=== PATIENT | male | born 1945 | race Caucasian/White ===

== ENCOUNTER → 2021-01-23 09:01 | Outpatient (BNVA) | payer BC, SELFPAY | PROVIDERS: Visit Provider Orthopaedic Surgery ==

== ENCOUNTER 2022-02-10 09:54 | Inpatient (IN) | payer MEDICARE, SELFPAY ==
[2022-01-26 12:19] VITALS: BP 127/72; PULSE 77; RESP 20; O2SAT 97; BMI 28.0
[2022-01-26 15:27] LABS: MRSA Nasal PCR NEGATIVE (Negative); SA Nasal PCR NEGATIVE (Negative)
--- NOTE | 2022-02-09 09:38 | P.CONAN_ITS ---
Documented by User: Jeri Kramer NP 02/09/22 09:42 HPI - Anesthesia Eval Consult details Narrative: 76yo M for Left Hip Total Replacement PCP cleared *Hx tonsilar CA s/p radiation 2017* PMFSH Active Problems Active Problems: All Active Problems (Updated 01/26/22 @ 12:19 by Jeanette Apodaca, RN) Primary osteoarthritis of left hip (Acute) Past Medical History Medical History (Updated 01/26/22 @ 12:19 by Jeanette Apodaca, RN) Arthritis Balance problem Heart burn Prostate cancer Tonsil cancer Surgical History Surgical History (Updated 01/26/22 @ 12:04 by Jeanette Apodaca, AKIKO) H/O vasectomy History of appendectomy History of bilateral cataract extraction History of hernia repair History of tonsillectomy History of tooth extraction Social History Social History (Updated 01/23/21 @ 09:12 by FERNY Napoles) Household Members: None Housing: Apartment Are you a primary managed care liaison to a significant other at home: No Do you presently have visiting nurse or other home services: No Alcohol intake: current Alcohol intake frequency: a few times a week Alcohol type: beer and wine Patient Tobacco Use Status: Former Tobacco user Quit Date: 04/2021 Tobacco use type: Cigarette Cigarettes Per Day: 4 Smoked in Last 30 Days: No Second Hand Smoke Exposure: Yes (Visiting son) Use of substances other than those prescribed or required for medical reasons: No Have you been hit, kicked, punched, or otherwise hurt by someone within the past year? If so, by whom?: No Do you feel safe in your current relationship?: No Current Relationship Is there a partner from a previous relationship who is making you feel unsafe now?: No Are you made to feel afraid or neglected: No Are you DNR?: Yes Advance Directives: No Advance Directives Information Provided: Yes (To bring in DOS) Advance Directives on File: No Do you have thoughts of harming others: None Do you have a plan to hurt others: No Plan Recently lost weight without trying: No How much weight loss: 14-23 pounds Eating poorly because of decreased appetite: No Nutrition screen score: 2 Nutrition Risks: No Nutritional Risk Poor oral hygiene: No Current occupational status: retired Current occupation: rt handed Meds Allergies Allergy/AdvReac Type Severity Reaction Status Date / Time Seasonal Allergies Allergy unknown Verified 01/29/22 13:54 Home Medications Medication Instructions Recorded Confirmed Last Taken Type simvastatin 40 mg tablet 40 mg PO DAILY 01/23/21 01/26/22 Unknown History tamsulosin 0.4 mg capsule 0.8 mg PO DAILY 01/23/21 01/26/22 Unknown History trazodone 50 mg tablet 50 mg PO BEDTIME 01/23/21 01/26/22 Unknown History bupropion HCl 150 mg tablet,12 hr 1 tab PO BID 01/26/22 01/26/22 Unknown History sustained-release famotidine 20 mg tablet 20 mg PO DAILY PRN Heartburn 01/26/22 01/26/22 Unknown History ibuprofen 400 mg tablet 400 mg PO BID 01/26/22 01/26/22 Unknown History multivitamin 1 tab PO DAILY 01/26/22 01/26/22 Unknown History Exam Exam Date and Time: February 09, 2022 0938 Height,Weight and Vital Signs: Height 5 ft 9 in Weight 86.183 kg Last Vital Signs Pulse 77 01/26/22 12:19 Resp 20 01/26/22 12:19 BP 127/72 01/26/22 12:19 Pulse Ox 97 01/26/22 12:19 O2 Del Method 01/26/22 12:19 Pertinent Lab Results Pertinent Lab Results: Laboratory Tests 01/26/22 01/26/22 13:20 Unknown Nasal Screen MRSA (PCR) NEGATIVE Nasal S. aureus Screen NEGATIVE Nasal MRSA/S.aureus Interp SEE NOTE Blood Type O Positive Antibody Screen NEGATIVE BMP and CBC at outside facility WNL 01/26/22 Narrative Narrative: EKG 12/2021 NSR @ 69 Assessment and Plan Assessment Anesthesia Assessment: Chart Reviewed Documented by User: Emanuel Mccullough MD 02/10/22 18:16 HPI - Anesthesia Eval Consult details Narrative: 76yo M for Left Hip Total Replacement PCP cleared *Hx tonsilar CA s/p chemo and radiation 2016* [facility] Past Medical History Medical History (Updated 01/26/22 @ 12:19 by Jeanette Apodaca RN) Arthritis Balance problem Heart burn Prostate cancer Tonsil cancer Family History Family history of problems with anesthesia: No Surgical History Surgical History (Updated 01/26/22 @ 12:04 by Jeanette Apodaca RN) H/O vasectomy History of appendectomy History of bilateral cataract extraction History of hernia repair History of tonsillectomy History of tooth extraction History of Problems with Anesthesia: No Social History Social History (Updated 01/23/21 @ 09:12 by FERNY Napoles) Household Members: None Housing: Apartment Are you a primary managed care liaison to a significant other at home: No Do you presently have visiting nurse or other home services: No Alcohol intake: current Alcohol intake frequency: a few times a week Alcohol type: beer and wine Patient Tobacco Use Status: Former Tobacco user Quit Date: 04/2021 Tobacco use type: Cigarette Cigarettes Per Day: 4 Smoked in Last 30 Days: No Second Hand Smoke Exposure: Yes (Visiting son) Use of substances other than those prescribed or required for medical reasons: No Have you been hit, kicked, punched, or otherwise hurt by someone within the past year? If so, by whom?: No Do you feel safe in your current relationship?: No Current Relationship Is there a partner from a previous relationship who is making you feel unsafe now?: No Are you made to feel afraid or neglected: No Are you DNR?: Yes Advance Directives: No Advance Directives Information Provided: Yes (To bring in DOS) Advance Directives on File: No Do you have thoughts of harming others: None Do you have a plan to hurt others: No Plan Recently lost weight without trying: No How much weight loss: 14-23 pounds Eating poorly because of decreased appetite: No Nutrition screen score: 2 Nutrition Risks: No Nutritional Risk Poor oral hygiene: No Current occupational status: retired Current occupation: rt handed Meds Allergies Allergy/AdvReac Type Severity Reaction Status Date / Time Seasonal Allergies Allergy unknown Verified 01/29/22 13:54 Home Medications Medication Instructions Recorded Confirmed Last Taken Type simvastatin 40 mg tablet 40 mg PO DAILY 01/23/21 01/26/22 Unknown History tamsulosin 0.4 mg capsule 0.8 mg PO DAILY 01/23/21 01/26/22 Unknown History trazodone 50 mg tablet 50 mg PO BEDTIME 01/23/21 01/26/22 Unknown History bupropion HCl 150 mg tablet,12 hr 1 tab PO BID 01/26/22 01/26/22 Unknown History sustained-release famotidine 20 mg tablet 20 mg PO DAILY PRN Heartburn 01/26/22 01/26/22 Unknown History ibuprofen 400 mg tablet 400 mg PO BID 01/26/22 01/26/22 Unknown History multivitamin 1 tab PO DAILY 01/26/22 01/26/22 Unknown History Exam Airway Mallampati Class: III TM Dist: >3cm Neck ROM: Full Loose/Missing/Broken Teeth: Yes (Chipped teeth ) Heart: S1,S2 Lungs: b/l breath sounds Assessment and Plan Assessment Anesthesia Assessment: Anesthesia Plan Discussed Final Anesthetic Review Family History of Problems with Anesthesia: No History of Problems with Anesthesia: No NPO: Yes ASA Class: II Final Preanesthetic Review: Meds/Allgs Chart Reviewed, Consent Obtained/Reviewed and Anes Risks/Benef Reviewed Patient Risk: Intermediate Procedure Risk: Intermediate Anesthetic Plan Anesthetic Plan: GA Disposition: Inp. Admit - Standard Bed
[2022-02-10] VITALS (11 sets, daily range): BP systolic 91–146; BP diastolic 54–94; PULSE 68–84; RESP 15–17; TEMP 36.6–37.2; O2SAT 97–100
--- NOTE | ~2022-02-10 | XR_ITS ---
EXAMINATION: XR PELVIS CLINICAL INFORMATION: Post left hip replacement COMPARISON: Previous x-ray January 2022 TECHNIQUE: AP view of the pelvis. FINDINGS: There is a new left hip replacement in satisfactory position. No fracture or dislocation. There is arthritis at the right hip joint. Bones of the pelvis are unremarkable. There are postoperative changes to the soft tissues. XR/XR pelvis 1-2V IMPRESSION: Satisfactory appearance of left hip replacement.
--- NOTE | ~2022-02-10 | XR_ITS ---
EXAMINATION: XR HIP, LEFT CLINICAL INFORMATION: Preop left hip replacement COMPARISON: None TECHNIQUE: Two views of the left hip and one view of the pelvis. FINDINGS: There is severe left hip arthritis with joint space narrowing, osteophyte formation and subchondral cyst formation. There is poor coverage of the left femoral head and some flattening of the femoral head. There is moderate to severe right hip arthritis with joint space narrowing and osteophyte formation. Bones of the visualized pelvis are unremarkable. There is soft tissue arterial calcification. There are surgical clips over the left lower pelvis. XR/XR hip LT w PEL1V IMPRESSION: Severe left hip arthritis. Moderate to severe right hip arthritis.
[2022-02-10] MEDS: oxyCODONE HCl ER 10 MG TAB.ER.12H PO ×2 (10:28→20:00)
--- NOTE | 2022-02-10 10:36 | PC.NURSE ---
off unit via wheelchair to xray of the hip
--- NOTE | 2022-02-10 10:56 | PC.NURSE ---
patient back from xray
[2022-02-10] MEDS: Lactated Ringers 1,000 ML 100 ML IVCONT ×3 (11:33→17:56)
--- NOTE | 2022-02-10 11:45 | MHC.SHP ---
Pre-Procedural Eval Section A Date of Service: 02/10/22 The patient is an INPATIENT: No Changes since office visit: Yes Patient answered all questions; No Cold of Flu in the past 2 weeks, No New Medical Problems and No Changes in Medication The History & Physical has been completed within 30 days and I have reviewed it.: Yes Section B Chief Complaint: LTHA Allergies: Allergies Allergy/AdvReac Type Severity Reaction Status Date / Time Seasonal Allergies Allergy unknown Verified 01/29/22 13:54 Plan I have reviewed the history and physical and performed a pertinent physical examination on my patient. No changes have occurred unless specified.
--- NOTE | 2022-02-10 12:32 | PHA.MEDREC ---
Pharmacy Consult ? Medication Reconciliation Pharmacy has completed the medication reconciliation. Reviewed med rec done by nursing
[2022-02-10 12:35] LABS: COVID-19 Test Negative (Negative); IDNOW Serial# 9DB6401D
[2022-02-10] MEDS: HYDROmorphone HCl 0.5 MG/0.5 ML SYRINGE 0.25 MG IVPUSH (15:34)
--- NOTE | 2022-02-10 15:40 | P.BOP_ITS ---
Brief Operative Note Date of Service: 02/10/22 Pre-op diagnosis: Left hip OA Post-op diagnosis: same Procedure: Left MELINDA Implants: Stryler Trident2 #56/lip liner [place] Trident2 #7 1`27 deg/ +5 36 cobalt chrome femoral head Surgeon: Shan Roth MD Anesthesia: GETA Was an Driver Utility Worker used for this Procedure?: Yes Driver Utility Worker: Stefanie Mahoney Estimated blood loss (mL): 300 IV fluids (mL): 1,000 Pathology: other Condition: stable Disposition: PACU
--- NOTE | 2022-02-10 15:44 | P.OP_ITS ---
Operative Note Operative Note Date of Service: 02/10/22 Narrative: Date of Service: 02/10/22 Pre-op diagnosis: Left hip OA Post-op diagnosis: same Procedure: Left MELINDA Implants: Stryler Trident2 #56/lip liner [place] Trident2 #7 1`27 deg/ +5 36 cobalt chrome femoral head Surgeon: Shan Roth MD Anesthesia: GETA Was an Brazer Crawler Torch used for this Procedure?: Yes Brazer Crawler Torch: Stefanie Mahoney Estimated blood loss (mL): 300 IV fluids (mL): 1,000 Pathology: other Condition: stable Disposition: PACU Procedure in detail: Patient was brought into the operating room and placed in the right lateral decubitus position. All bony prominences were well padded and the limb was prepped and draped in standard sterile fashion. Time-out was called to identify proper site procedure proper surgeon IV antibiotics and 1 g of transaxemic acid were administered. I began by making a curvilinear incision over the posterolateral aspect of the greater trochanter. Dissection was taken down to the tensor fascia which was incised in line with the incision and a Charnley retractor was placed. Cautery was used to maintain hemostasis. A werewolf device was also used. The hip was internally rotated and the external rotators were identified. The vessels were cauterized and a full-thickness capsular/external rotator layer was developed starting just proximal to the piriformis. This layer was tagged and a dull Hohmann retractor was placed underneath the neck in the hip was dislocated. The head was eburnated. A neck cut was made approximately 1 cm proximal to the lesser trochanter and the head and neck were removed and measured as 52mm on the back table. I started with a 44 and medialized and then sequentially reamed up to a size 56 and impacted a 56mm cup at approximately 40 degrees of inclination and 25 degrees of version. I then placed 2 acetabular screws using standard AO techniqu. Care was take to stay intra-osseous with all screws. I then placed a 20 deg posterior lipped liner and turned my attention to the femur. I identified the piriformis insertion and used this as a starting point for my broderickie cutter. The medius tendon was protected with a Hibs retractor. I then used a Charnley awl to identify the canal and a curved curette to remove the lateral bone. I irrigated copiously. I then sequentially broached in the patient's natural version to a #7 and placed my trial implants. Using a trail head I took the hip through range of motion. I was very satisfied with the stability and length. Therefore I removed all instrumentation and copiously irrigated. I placed my final femoral implant and again took the hip through range of motion and was satisfied with the stability and length usiang a +5 trial. My final +5 36 cobalt chrome head was impacted in place. I then irrigated for 3 minutes with iodine and placed 1 g of local tranaxemic acid. I then performed a capsular closure with 2.0 fiberwire, Carlo's fascia with 0 Vicryl, subcuticular with 2-0 Vicryl and the skin with will. Patient was placed into a sterile dressing. Radiographs were obtained at the completion of the case and I was satisfied with the component position. Patient was extubated brought to the recovery room in stable condition. There were no known complications.
--- NOTE | 2022-02-10 16:46 | P.CONHOSP_ITS ---
History of Present Illness Data of Consult Service Date: 02/10/22 Requesting physician: Shan Roth Primary Care Provider: Jany Denton HPI 76-year-old man admitted by Orthopedic surgery and is status post left total hip arthroplasty. Surgery was unremarkable. Patient is hemodynamically stable. He has no acute medical complaints at this time. Review of Systems Review of Systems: Denies any recent fever chills or decrease in appetite respiratory denies any shortness of breath coverage production cardiovascular Denies chest pain gastrointestinal denies any dysphagia abdominal pain nausea vomiting or diarrh ea genitourinary denies any dysuria frequency or hematuria musculoskeletal denies any joint pain or swelling neuropsych denies any weakness or seizures all other systems reviewed are negative [facility] Medical History Arthritis Balance problem Heart burn Prostate cancer Tonsil cancer Surgical History H/O vasectomy History of appendectomy History of bilateral cataract extraction History of hernia repair History of tonsillectomy History of tooth extraction Social History (Updated 01/23/21 @ 09:12 by FERNY Napoles) Household Members: None Housing: Apartment Are you a primary adult live in caregiver to a significant other at home: No Do you presently have visiting nurse or other home services: No Alcohol intake: current Alcohol intake frequency: a few times a week Alcohol type: beer and wine Patient Tobacco Use Status: Former Tobacco user Quit Date: 04/2021 Tobacco use type: Cigarette Cigarettes Per Day: 4 Second Hand Smoke Exposure: Yes (Visiting son) service: No Current occupational status: retired Current occupation: rt handed Meds Allergies Allergy/AdvReac Type Severity Reaction Status Date / Time Seasonal Allergies Allergy unknown Verified 01/29/22 13:54 Active Medications: Current Medications Acetaminophen (Acetaminophen 325 Mg Tablet) 650 mg PO Q6H PRN PRN Reason: Pain, Mild (Pain Scale 1-3) Celecoxib (Celecoxib 200 Mg Capsule) 200 mg PO BID [place] Docusate Sodium (Docusate Sodium 100 Mg Capsule) 100 mg PO BID [place] Enoxaparin Sodium (Enoxaparin Sodium 40 Mg/0.4 Ml Syringe) 40 mg SUBCUT Q24H [place] Famotidine (Famotidine 20 Mg Tablet) 20 mg PO DAILY PRN PRN Reason: Heartburn Hydromorphone HCl (Hydromorphone Hcl 0.5 Mg/0.5 Ml Syringe) 0.25 mg IVPUSH Q4H PRN; Protocol PRN Reason: Pain, Severe (Pain Scale 7-10) Lactated Ringer's (Lr) 1,000 mls @ 100 mls/hr IVCONT .Q10H [place] Stop: 02/11/22 16:40 Cefazolin Sodium/Dextrose (Ancef) 2 gm in 50 mls @ 100 mls/hr IV POSTOP ONE Stop: 02/10/22 17:10 Non-Formulary Medication (Bupropion Hcl) 1 tab PO BID [facility] Ondansetron HCl (Ondansetron Hcl 4 Mg/2 Ml Vial) 4 mg IVPUSH Q8H PRN PRN Reason: Nausea and Vomiting Oxycodone HCl (Oxycodone Hcl Immed Release 5 Mg Tablet) 5 mg PO Q4H PRN PRN Reason: Pain, Moderate (Pain Scale 4-6 Oxycodone HCl (Oxycodone Hcl Er 10 Mg Tab.Er.12h) 10 mg PO BID [facility] Sodium Chloride (0.9 % Sodium Chloride Flush 3 Ml Syringe) 3 ml IVFLUSH QSHIFT [facility] Tamsulosin HCl (Tamsulosin Hcl 0.4 Mg Capsule) 0.8 mg PO DAILY [facility] Trazodone HCl (Trazodone Hcl 50 Mg Tablet) 50 mg PO BEDTIME [facility] Home Medications Medication Instructions Recorded Confirmed Last Taken Type simvastatin 40 mg tablet 40 mg PO DAILY 01/23/21 01/26/22 Unknown History tamsulosin 0.4 mg capsule 0.8 mg PO DAILY 01/23/21 01/26/22 Unknown History trazodone 50 mg tablet 50 mg PO BEDTIME 01/23/21 01/26/22 Unknown History bupropion HCl 150 mg tablet,12 hr 1 tab PO BID 01/26/22 01/26/22 Unknown History sustained-release famotidine 20 mg tablet 20 mg PO DAILY PRN Heartburn 01/26/22 01/26/22 Unknown History multivitamin 1 tab PO DAILY 01/26/22 01/26/22 Unknown History Physical Exam Vital Signs and Narrative: Vital Signs: Last Vital Signs Temp 98.3 F 02/10/22 15:00 Pulse 70 02/10/22 16:00 Resp 16 02/10/22 16:00 BP 127/63 02/10/22 16:00 Pulse Ox 99 02/10/22 16:00 O2 Del Method 02/10/22 16:00 O2 Flow Rate 2 02/10/22 16:00 BMI result Body Mass Index 28.0 Appearing in no acute distress head is normocephalic atraumatic eyes pupils are PERRLA sclera is anicteric mouth throat mucous membranes are intact and moist neck is supple no lymphadenopathy, no JVD noted lung sounds are clear to auscultation heart regular rate rhythm, clear S1, S2 positive bowel sounds, abdomen is soft, nontender neuro patient is alert x3, no focal deficits Left hip surgical dressing intact, unable to visualize wound Results Labs CBC and Chem 7: 02/13/22 05:11 02/13/22 05:11 Labs: Laboratory Results - last 24 hr 02/10/22 02/10/22 09:59 12:07 COVID-19 (GINA) Cancelled Negative COVID-19 Clin Com Cancelled See Note Imaging Radiologist's Impressions: Impressions Hip/Pelvis X-Ray 02/10/22 10:36 IMPRESSION: Severe left hip arthritis. Moderate to severe right hip arthritis. Assessment and Plan (1) Primary osteoarthritis of left hip: Status: Acute Plan 76-year-old man status post left total hip arthroplasty Left total hip arthroplasty Management as per surgical team Pain management Mental health Continue home medications BPH Continue tamsulosin DVT prophylaxis as per surgical team Attending Dr. English Full code
[2022-02-10] MEDS: ceFAZolin Sodium/Dextrose,Iso 2 GM/50 ML PIGGYBACK IV (17:56)
[2022-02-10] MEDS: Docusate Sodium 100 MG CAPSULE PO (20:00)
[2022-02-10] MEDS: 0.9 % Sodium Chloride Flush 3 ML SYRINGE IVFLUSH (20:01)
[2022-02-10] MEDS: traZODone HCL 50 MG TABLET PO (20:01)
[2022-02-10] MEDS: Celecoxib 200 MG CAPSULE PO (20:01)
[2022-02-11] MEDS: Lactated Ringers 1,000 ML 100 ML IVCONT ×2 (02:32→12:09)
[2022-02-11] MEDS: HYDROmorphone HCl 0.5 MG/0.5 ML SYRINGE 0.25 MG IVPUSH ×4 (02:59→18:23)
[2022-02-11 03:29] VITALS: BP 117/56; PULSE 88; RESP 16; TEMP 37.2; O2SAT 95
[2022-02-11 05:53] LABS: MANUAL DIFF FLAG NO
[2022-02-11 06:01] LABS: Basophils Percent Auto 0.4 % (0-2); Eosinophils Percent Auto 0.1 % (0-4); Hematocrit 35.5 % (42.0-52.0); Imm Gran Abs Auto 0.03 X10*3/uL (0.00-0.03); Imm Gran Pct Auto 0.4 % (0.0-0.4); Lymphocytes Absolute Auto 1.1 X10*3/uL (1.2-4.9); Mean Corpuscular HGB Conc 33.8 g/dl (31.0-36.0); Mean Corpuscular Hemoglobin 32.7 pg (27.0-33.0); Mean Corpuscular Volume 96.7 fL (80.0-98.0); Mean Platelet Volume 9.2 fL (9.4-12.4); Monocytes Absolute Auto 0.8 X10*3/uL (0.1-1.2); Monocytes Percent Auto 10.2 % (2-11); Neutrophils Absolute Auto 5.9 x10*3/uL (2.0-8.3); Neutrophils Percent Auto 74.9 % (45-73); Platelet Count 203 X10*3/uL (160-400); Red Blood Count 3.67 X10*6/uL (4.60-5.80); Red Cell Distribution Width 11.9 % (11.0-16.0); White Blood Count 7.8 X10*3/uL (4.8-10.8)
[2022-02-11 06:15] LABS: Anion Gap 13 (12-20); Blood Urea Nitrogen 12 mg/dL (9-16); Carbon Dioxide 25 mmol/L (22-29); Chloride 101 mmol/L (96-108); Estimated Glomerular Filt Rate > 60; Glucose Fasting 112 mg/dL (60-99); Sodium 135 mmol/L (135-145)
[2022-02-11 07:07] VITALS: BP 143/71; PULSE 98; RESP 18; TEMP 36.8; O2SAT 95
[2022-02-11] MEDS: Tamsulosin HCL 0.4 MG CAPSULE 0.8 MG PO (07:47)
[2022-02-11] MEDS: buPROPion HCl XL 300 MG TAB.ER.24H PO (07:48)
[2022-02-11] MEDS: Docusate Sodium 100 MG CAPSULE PO ×2 (07:48→21:02)
[2022-02-11] MEDS: Celecoxib 200 MG CAPSULE PO ×2 (07:48→21:02)
[2022-02-11] MEDS: oxyCODONE HCl ER 10 MG TAB.ER.12H PO ×2 (07:57→21:02)
--- NOTE | 2022-02-11 09:18 | PM.PNORT ---
Subjective Subjective Date of Service: 02/11/22 Interval history: POD1 s/p LTHA. Patient is resting in bed comfortably. Pain is managed. No overnight events. No additional complaints. Physical Exam Vital Signs: Vital Signs: Last Vital Signs Temp 98.2 F 02/11/22 07:07 Pulse 98 02/11/22 07:07 Resp 18 02/11/22 07:07 BP 143/71 H 02/11/22 07:07 Pulse Ox 95 02/11/22 07:07 O2 Del Method 02/11/22 07:07 O2 Flow Rate 2 02/10/22 23:45 BMI result Body Mass Index 28.0 Const: General: cooperative, healthy appearing and no acute distress Resp: Effort & Inspection: normal respiratory effort and able to speak in complete sentences Cardio: Rate: regular rate Peripheral pulses: Peripheral pulses 2+ throughout GI: Palpation (GI): Soft to palpation Skin: Lesions: no lesions Rashes: no rashes Extrem: Other: Left hip Aquacel is clean, dry and intact. NVI. Procedures Date of Service Date of Service: 02/11/22 Progress Note: A&P Assessment and plan (1) Status post total hip replacement, left: Status: Acute Assessment and Plan: Continue pain mgmnt Begin Lovenox for dvt ppx - hx oral cancer and PVD begin PT for LTHA Dispo planning-Pending PT eval, pain mgmnt Time Spent With Patient Time: Total time spent is greater than 50% in coordination of care (as documented) at patient's floor/unit and/or counseling patient: Quality Stroke Does the patient have a stroke diagnosis?: No VTE Prior VTE?: No VTE Risk Level:: Medical - moderate - high VTE Device Contraindication: N/A - Device Ordered VTE Drug Contraindication: N/A - Med Ordered
--- NOTE | 2022-02-11 09:33 | MHC.CM.PN ---
PATIENT LIVES ALONE. HE HAS A CANE AND A WALKER BUT RELIES MOSTLY ON THE CANE. NO VNA OR ELDER SERVICES. HCP AND MOLST COPIES MADE AND UPLOADED INTO [facility]. PATIENT FEELS HE WILL NEED STR UPON DC. HIS FIRST CHOICE IS [facility] AND HE IS AGREEABLE TO REFERRALS TO CONTRACTED FACILITIES IF [facility] CANNOT OFFER. LAILA ESCUDEROX X 4. IMM 02/11 IN CHART
--- NOTE | 2022-02-11 09:45 | P.PNIM_ITS ---
Subjective Subjective Date of Service: 02/11/22 Review of Systems Follow-up consultation for left total hip arthroplasty Patient feeling better Her bed to commode in ambulating with physical therapy One short episode of hypotension when getting up with physical therapist Physical Exam Vital Signs: Vital Signs: Last Vital Signs Temp 98.2 F 02/11/22 07:07 Pulse 98 02/11/22 07:07 Resp 18 02/11/22 07:07 BP 143/71 H 02/11/22 07:07 Pulse Ox 95 02/11/22 07:07 O2 Del Method 02/11/22 07:07 O2 Flow Rate 2 02/10/22 23:45 BMI result Body Mass Index 28.0 Appearing in no acute distress lung sounds are clear to auscultation heart regular rate rhythm, clear S1, S2 positive bowel sounds, abdomen is soft, nontender neuro patient is alert x3, no focal deficits Left hip dressing intact unable to visualize surgical incision Objective Data Active Medications Acetaminophen (Acetaminophen 325 Mg Tablet) 650 mg PO Q6H PRN PRN Reason: Pain, Mild (Pain Scale 1-3) Bupropion HCl (Bupropion Hcl Xl 300 Mg Tab.Er.24h) 300 mg PO DAILY [facility] Last Admin: 02/11/22 07:48 Dose: 300 mg Documented By: LILI Celecoxib (Celecoxib 200 Mg Capsule) 200 mg PO BID [facility] Last Admin: 02/11/22 07:48 Dose: 200 mg Documented By: LILI Docusate Sodium (Docusate Sodium 100 Mg Capsule) 100 mg PO BID [facility] Last Admin: 02/11/22 07:48 Dose: 100 mg Documented By: LILI Enoxaparin Sodium (Enoxaparin Sodium 40 Mg/0.4 Ml Syringe) 40 mg SUBCUT Q24H [facility] Famotidine (Famotidine 20 Mg Tablet) 20 mg PO DAILY PRN PRN Reason: Heartburn Hydromorphone HCl (Hydromorphone Hcl 0.5 Mg/0.5 Ml Syringe) 0.25 mg IVPUSH Q4H PRN; Protocol PRN Reason: Pain, Severe (Pain Scale 7-10) Last Admin: 02/11/22 07:57 Dose: 0.25 mg Documented By: LILI Lactated Ringer's (Lr) 1,000 mls @ 100 mls/hr IVCONT .Q10H [facility] Stop: 02/11/22 16:40 Last Admin: 02/11/22 02:32 Dose: 100 mls/hr Documented By: ANT Ondansetron HCl (Ondansetron Hcl 4 Mg/2 Ml Vial) 4 mg IVPUSH Q8H PRN PRN Reason: Nausea and Vomiting Oxycodone HCl (Oxycodone Hcl Immed Release 5 Mg Tablet) 5 mg PO Q4H PRN PRN Reason: Pain, Moderate (Pain Scale 4-6 Oxycodone HCl (Oxycodone Hcl Er 10 Mg Tab.Er.12h) 10 mg PO BID [facility] Last Admin: 02/11/22 07:57 Dose: 10 mg Documented By: LILI Sodium Chloride (0.9 % Sodium Chloride Flush 3 Ml Syringe) 3 ml IVFLUSH QSHIFT [facility] Last Admin: 02/11/22 07:48 Dose: Not Given Documented By: LILI Non-Admin Reason: IV Running Tamsulosin HCl (Tamsulosin Hcl 0.4 Mg Capsule) 0.8 mg PO DAILY [facility] Last Admin: 02/11/22 07:47 Dose: 0.8 mg Documented By: LILI Trazodone HCl (Trazodone Hcl 50 Mg Tablet) 50 mg PO BEDTIME [facility] Last Admin: 02/10/22 20:01 Dose: 50 mg Documented By: ANT Labs CBC & Chem 7: 02/11/22 05:06 02/11/22 05:06 Labs: Laboratory Results - last 24 hr 02/10/22 02/10/22 02/11/22 09:59 12:07 05:06 MCV 96.7 MCH 32.7 MCHC 33.8 RDW 11.9 Plt Count 203 MPV 9.2 L Immature Gran % (Auto) 0.4 Neut % (Auto) 74.9 H Lymph % (Auto) 14.0 L Sumner % (Auto) 10.2 Eos % (Auto) 0.1 Baso % (Auto) 0.4 Lymph # (Auto) 1.1 L Sumner # (Auto) 0.8 Eos # (Auto) 0.0 Baso # (Auto) 0.0 Abs Immat Gran (auto) 0.03 Absolute Neuts (auto) 5.9 Absolute Nucleated RBC 0.000 Nucleated RBC % (auto) 0.0 Anion Gap Estim Creat Clear Calc Estimated GFR Fasting Glucose Calcium COVID-19 (GINA) Cancelled Negative COVID-19 Clin Com Cancelled See Note 02/11/22 05:06 MCV MCH MCHC RDW Plt Count MPV Immature Gran % (Auto) Neut % (Auto) Lymph % (Auto) Sumner % (Auto) Eos % (Auto) Baso % (Auto) Lymph # (Auto) Sumner # (Auto) Eos # (Auto) Baso # (Auto) Abs Immat Gran (auto) Absolute Neuts (auto) Absolute Nucleated RBC Nucleated RBC % (auto) Anion Gap 13 Estim Creat Clear Calc 80.0 Estimated GFR > 60 Fasting Glucose 112 H Calcium 8.0 L COVID-19 (GINA) COVID-19 Clin Com Assessment and Plan (1) Status post total hip replacement, left: Status: Acute Plan 76-year-old man status post left total hip arthroplasty Left total hip arthroplasty Management as per surgical team Pain management Hypotension. Brief episode during physical therapy Quickly resolved Follow blood pressure specially with ambulation Mental health Continue home medications BPH Continue tamsulosin DVT prophylaxis as per surgical team Attending Dr. Field Full code MEDICAL CONSULTATION COMPLETED. WILL SIGN OFF Quality Stroke Does the patient have a stroke diagnosis?: No VTE Prior VTE?: No VTE Risk Level:: Medical - moderate - high VTE Device Contraindication: N/A - Device Ordered VTE Drug Contraindication: N/A - Med Ordered
[2022-02-11 11:14] VITALS: BP 105/56; PULSE 86; RESP 18; TEMP 36.6; O2SAT 97
--- NOTE | 2022-02-11 11:44 | HO.POSTANES ---
Post Anesthesia Evaluation Post Anesthesia Evaluation Vital Signs: Vital Signs Temp Pulse Resp BP Pulse Ox O2 Del Method O2 Flow Rate 02/11/22 11:14 97.9 F 86 18 105/56 L 97 Room Air 02/11/22 07:07 98.2 F 98 18 143/71 H 95 Room Air 02/11/22 03:29 99 F 88 16 117/56 L 95 Room Air 02/10/22 23:45 98.9 F 84 16 91/54 L 97 Nasal Cannula 2 Anesthesia: General Mental Status: Awake Pain Control: Satisfactory Nausea/Vomiting: None Hydration: Adequate Anesthesia-Related Issues: No Anes. Related Issues
[2022-02-11] MEDS: Enoxaparin Sodium 40 MG/0.4 ML SYRINGE SUBCUT (13:41)
[2022-02-11 15:12] VITALS: BP 139/61; PULSE 91; RESP 16; TEMP 36.9; O2SAT 96
[2022-02-11 19:47] VITALS: BP 145/61; PULSE 93; RESP 17; TEMP 37.3; O2SAT 98
[2022-02-11] MEDS: traZODone HCL 50 MG TABLET PO (21:02)
[2022-02-11] MEDS: 0.9 % Sodium Chloride Flush 3 ML SYRINGE IVFLUSH (22:37)
[2022-02-12] VITALS (9 sets, daily range): BP systolic 90–146; BP diastolic 45–60; PULSE 65–103; RESP 17–20; TEMP 35.9–36.9; O2SAT 91–99
[2022-02-12 06:15] LABS: MANUAL DIFF FLAG NO
[2022-02-12 06:21] LABS: Basophils Absolute Auto 0.1 X10*3/uL (0.0-0.2); Basophils Percent Auto 0.5 % (0-2); Eosinophils Percent Auto 0.1 % (0-4); Hemoglobin 11.6 g/dl (14.0-18.0); Imm Gran Abs Auto 0.05 X10*3/uL (0.00-0.03); Imm Gran Pct Auto 0.5 % (0.0-0.4); Lymphocytes Absolute Auto 1.2 X10*3/uL (1.2-4.9); Lymphocytes Percent Auto 10.6 % (20-40); Mean Corpuscular HGB Conc 34.1 g/dl (31.0-36.0); Mean Corpuscular Hemoglobin 32.8 pg (27.0-33.0); Mean Platelet Volume 9.3 fL (9.4-12.4); Monocytes Absolute Auto 1.1 X10*3/uL (0.1-1.2); Monocytes Percent Auto 10.2 % (2-11); Neutrophils Absolute Auto 8.6 x10*3/uL (2.0-8.3); Neutrophils Percent Auto 78.1 % (45-73); Platelet Count 182 X10*3/uL (160-400); Red Blood Count 3.54 X10*6/uL (4.60-5.80); Red Cell Distribution Width 12.1 % (11.0-16.0)
[2022-02-12 06:37] LABS: Anion Gap 15 (12-20); Blood Urea Nitrogen 11 mg/dL (9-16); Calcium 8.3 mg/dL (8.4-10.2); Carbon Dioxide 24 mmol/L (22-29); Chloride 100 mmol/L (96-108); Estimated Glomerular Filt Rate > 60; Glucose Fasting 100 mg/dL (60-99); Potassium 4.4 mmol/L (3.3-5.1); Sodium 135 mmol/L (135-145)
[2022-02-12] MEDS: Tamsulosin HCL 0.4 MG CAPSULE 0.8 MG PO (08:42)
[2022-02-12] MEDS: oxyCODONE HCl ER 10 MG TAB.ER.12H PO ×2 (08:42→20:42)
[2022-02-12] MEDS: buPROPion HCl XL 300 MG TAB.ER.24H PO (08:43)
[2022-02-12] MEDS: Docusate Sodium 100 MG CAPSULE PO ×2 (08:43→20:42)
[2022-02-12] MEDS: Celecoxib 200 MG CAPSULE PO ×2 (08:44→20:43)
[2022-02-12] MEDS: 0.9 % Sodium Chloride Flush 3 ML SYRINGE IVFLUSH (08:44)
--- NOTE | 2022-02-12 08:54 | P.DS_ITS ---
DS: Providers Provider Date of Service: 02/12/22 Date of admission: 02/10/22 09:54 Primary care physician: Jany Denton Consults: 02/10/22 16:41 Consult to Hospitalist Routine Consulting Provider: Hospitalist Reason For Exam: medical management DS: Diagnosis Discharge Diagnosis (1) Status post total hip replacement, left: Status: Acute DS: Summary Hospital Course Hospital Course: The patient underwent a successful Left total hip arthroplasty, they were transferred to PACU and then to the floor to recover. During their stay, their vitals were stable, afebrile at 96.6. Labs were unremarkable, H/H 11.6/34.0. POD 1 they were started on Lovenox for DVT ppx due to PMH of cancer, they also received Physical Therapy services twice a day. Prior to discharge, their dressing was changed, incision clean dry and intact, new Aquacel dressing applied and the plan was to be discharged home with VNA services. Time Spent with Patient Time attestation: Total time spent providing and/or coordinating discharge services: Discharge coordination time: Less than 30 minutes Quality: Safe Use of Opioids Does Pt have an Active Cancer Diagnosis on the Problem List?: No Quality: Stroke Does the patient have a stroke diagnosis?: No Physical Exam Vital Signs: Vital Signs: Last Vital Signs Temp 96.6 F L 02/12/22 07:57 Pulse 103 H 02/12/22 07:57 Resp 20 02/12/22 07:57 BP 106/51 L 02/12/22 07:57 Pulse Ox 91 L 02/12/22 07:57 O2 Del Method 02/12/22 07:57 O2 Flow Rate 2 02/10/22 23:45 BMI result Body Mass Index 28.0 Const: General: cooperative, healthy appearing and no acute distress Resp: Effort & Inspection: normal respiratory effort and able to speak in complete sentences Cardio: Rate: regular rate Peripheral pulses: Peripheral pulses 2+ throughout GI: Palpation (GI): Soft to palpation Skin: Lesions: no lesions Rashes: no rashes Extrem: Other: Left hip incision site is clean, dry, and intact. Franco intact. New Aquacel dressing applied. NVI. DS: Data Data Completed and Pending Pending studies at discharge: Pending at discharge 02/10/22 14:20 Surgical [PTH] Routine Labs on day of discharge: Laboratory Results - last 24 hr 02/12/22 02/12/22 05:14 05:14 WBC 11.0 H RBC 3.54 L Hgb 11.6 L Hct 34.0 L MCV 96.0 MCH 32.8 MCHC 34.1 RDW 12.1 Plt Count 182 MPV 9.3 L Immature Gran % (Auto) 0.5 H Neut % (Auto) 78.1 H Lymph % (Auto) 10.6 L Door % (Auto) 10.2 Eos % (Auto) 0.1 Baso % (Auto) 0.5 Lymph # (Auto) 1.2 Door # (Auto) 1.1 Eos # (Auto) 0.0 Baso # (Auto) 0.1 Abs Immat Gran (auto) 0.05 H Absolute Neuts (auto) 8.6 H Absolute Nucleated RBC 0.000 Nucleated RBC % (auto) 0.0 Sodium 135 Potassium 4.4 Chloride 100 Carbon Dioxide 24 Anion Gap 15 BUN 11 Creatinine 0.87 Estim Creat Clear Calc 81.0 Estimated GFR > 60 Fasting Glucose 100 H Calcium 8.3 L Discharge Plan Discharge Patient Disposition: Home Health Service Discharge Diagnosis: Left elva Referrals: Debra Meraz PA-C [Physician [place] [place] Tender] - 2 Weeks (02/26/22 2:00 [facility]geons Debra Meraz PA-C) Discharge Medications: New docusate sodium 100 mg Capsule 100 mg PO BID 14 Days Qty: 28 0RF acetaminophen 325 mg Tablet 650 mg PO Q6H PRN (Reason: Pain, Mild (Pain Scale 1-3)) 30 Days Qty: 240 0RF oxycodone 5 mg Tablet 5 mg PO Q4H PRN (Reason: Pain, Moderate (Pain Scale 4-6) 7 Days Qty: 42 0RF Rx Instructions: Partial Fill upon patient request. enoxaparin 40 mg/0.4 mL Syringe 40 mg subcut Q24H 42 Days Qty: 16.8 0RF Continued (ANDREW) bladimir [facility] See Rx Instructions .ROUTE .MEDSUPPLY Qty: 1 0RF Rx Instructions: Folding front wheeled walker multivitamin Tablet 1 tab PO DAILY bupropion HCl 150 mg tablet sustained-release 12 hr 1 tab PO BID famotidine 20 mg Tablet 20 mg PO DAILY PRN (Reason: Heartburn) simvastatin 40 mg tablet 40 mg PO DAILY trazodone 50 mg tablet 50 mg PO BEDTIME tamsulosin 0.4 mg capsule 0.8 mg PO DAILY (DME) raised toliet seat See Rx Instructions .ROUTE .MEDSUPPLY Qty: 1 0RF Rx Instructions: As directed Discontinued ibuprofen 400 mg Tablet 400 mg PO BID Discharge Orders: Discharge Order (Routine); Ordered 02/12/22 Ordered By: Debra Meraz Diet: Regular diet Activity on Discharge: Use cane or walker Stand Alone Forms: Patient Portal Discharge page Care Plan Goals: Restore function of joint Health Concerns: none Plan of Treatment: Physical Therapy Pain management DVT prophylaxis Assessment: * Physical Therapy for Total hip arthroplasty: wbat, posterior precautions, gait training, ROM, strength * Limit stair climbing * No showering, no tub bath-keep dressing clean, dry and intact * No driving x6 weeks * Continue Aspirin twice a day x 6 weeks * Follow up with [facility] Orthopedics in 2 weeks: 02/26/22 @ 2pm
--- NOTE | 2022-02-12 12:56 | MHC.CM.PN ---
ONE BED OFFER - [facility] HAS GONE FOR AUTH. PATIENT AWARE AND IN AGREEMENT, UNDERSTANDING THAT THIS IS THE ONLY OFFER. CM FOLLOWING PATIENT IS DC TODAY
[2022-02-12] MEDS: Enoxaparin Sodium 40 MG/0.4 ML SYRINGE SUBCUT (13:48)
--- NOTE | 2022-02-12 15:27 | MHC.CM.PN ---
OF THIS NOTE, NO AUTH TO ADMIT OBTAINED BY [facility] CASE MANAGEMENT FOLLOWING
--- NOTE | 2022-02-12 16:16 | MHC.CM.PN ---
Addendum entered by Pamella Boggs 02/12/22 16:22: DAUGHTER, KENDALL ([phone]) AWARE OF PLAN. Original Note: [facility] OFFERING A [facility]ED [facility]SP[facility] REQUEST FOR [phone] PATIENT AND RN AWARE.
[2022-02-12] MEDS: traZODone HCL 50 MG TABLET PO (20:43)
[2022-02-13 03:06] VITALS: BP 105/59; PULSE 86; RESP 18; TEMP 37; O2SAT 96
[2022-02-13 06:20] LABS: MANUAL DIFF FLAG NO
[2022-02-13 06:24] LABS: Basophils Percent Auto 0.4 % (0-2); Eosinophils Absolute Auto 0.1 X10*3/uL (0.0-0.4); Eosinophils Percent Auto 1.8 % (0-4); Hematocrit 31.6 % (42.0-52.0); Hemoglobin 10.7 g/dl (14.0-18.0); Imm Gran Abs Auto 0.05 X10*3/uL (0.00-0.03); Imm Gran Pct Auto 0.7 % (0.0-0.4); Lymphocytes Absolute Auto 1.4 X10*3/uL (1.2-4.9); Lymphocytes Percent Auto 19.4 % (20-40); Mean Corpuscular HGB Conc 33.9 g/dl (31.0-36.0); Mean Corpuscular Hemoglobin 32.6 pg (27.0-33.0); Mean Corpuscular Volume 96.3 fL (80.0-98.0); Mean Platelet Volume 9.2 fL (9.4-12.4); Monocytes Absolute Auto 0.7 X10*3/uL (0.1-1.2); Monocytes Percent Auto 10.3 % (2-11); Neutrophils Absolute Auto 4.8 x10*3/uL (2.0-8.3); Neutrophils Percent Auto 67.4 % (45-73); Platelet Count 188 X10*3/uL (160-400); Red Blood Count 3.28 X10*6/uL (4.60-5.80); White Blood Count 7.2 X10*3/uL (4.8-10.8)
[2022-02-13 06:50] LABS: Anion Gap 16 (12-20); Blood Urea Nitrogen 15 mg/dL (9-16); Calcium 8.6 mg/dL (8.4-10.2); Carbon Dioxide 26 mmol/L (22-29); Chloride 101 mmol/L (96-108); Creatinine Clr Calc Pharmacy 85.9; Estimated Glomerular Filt Rate > 60; Glucose Fasting 96 mg/dL (60-99); Potassium 4.1 mmol/L (3.3-5.1); Sodium 139 mmol/L (135-145)
[2022-02-13] MEDS: Acetaminophen 325 MG TABLET 650 MG PO (07:23)
[2022-02-13 08:00] VITALS: BP 93/50; PULSE 90; RESP 20; TEMP 37.2; O2SAT 95
[2022-02-13 08:50] VITALS: BP 105/59; PULSE 86; O2SAT 96
[2022-02-13] MEDS: Celecoxib 200 MG CAPSULE PO (09:45)
[2022-02-13] MEDS: Tamsulosin HCL 0.4 MG CAPSULE 0.8 MG PO (09:45)
[2022-02-13] MEDS: oxyCODONE HCl ER 10 MG TAB.ER.12H PO (09:45)
[2022-02-13] MEDS: Docusate Sodium 100 MG CAPSULE PO (09:45)
[2022-02-13] MEDS: buPROPion HCl XL 300 MG TAB.ER.24H PO (09:45)
[2022-02-13 11:23] VITALS: BP 114/57; PULSE 81; RESP 20; TEMP 36.8; O2SAT 96
--- NOTE | 2022-02-13 11:55 | MHC.CM.PN ---
PT CLEARED TO DC YESTERDAY HOWEVER DID NOT DUE TO TRANSPORT ISSUES. TRANSPORT REQUESTED TODAY FOR 1000 HOURS [facility] INDICATED THEY WOULD BE DELAYED PT DISCHARGED TO [facility]
== END 2022-02-13 12:00 | disposition skilled nursing facility (03) | DRG 470 ==
LOC: HO.SSSA 10:19 → HO.S3 15:05
PROVIDERS: Anesthesiology; Physician Assistant; Admitting Provider Orthopaedic Surgery; PCP Nurse Practitioner Family; Visit Provider Orthopaedic Surgery
PROC: 0SRB01A Replacement of Left Hip Joint with Metal Synthetic Substitute, Uncemented, Open Approach (ICD-10-PCS; CPT 27130; principal; 2022-02-10 11:50)
DX: M16.12 Unilateral primary osteoarthritis, left hip (principal); Z20.822 Contact with and (suspected) exposure to COVID-19; I95.9 Hypotension, unspecified; N40.0 Benign prostatic hyperplasia without lower urinary tract symptoms; Z85.818 Personal history of malignant neoplasm of other sites of lip, oral cavity, and pharynx; Z98.52 Vasectomy status; Z87.891 Personal history of nicotine dependence; Z79.899 Other long term (current) drug therapy
CPT/HCPCS: 36415; 72170; 73502; 80048; 85025; 86850; 86900; 86901; 87635; 87640; 87641; 88305; 88311; 97110; 97116; 97162; 97166; 97530; 97535; C1713; C1776; J0131; J0690; J1170; J1650; J2405; J2795; J3010

== ENCOUNTER 2022-05-11 09:08 | Outpatient (REF) | payer MEDICARE, SELFPAY ==
--- NOTE | ~2022-05-11 | XR_ITS ---
EXAMINATION: XR PELVIS CLINICAL INFORMATION: Pain COMPARISON: 02/10/2022 TECHNIQUE: AP view of the pelvis. FINDINGS: Degenerative changes of the right hip joint with joint space narrowing and osteophytosis. Left hip arthroplasty. Pelvic surgical clips are noted. XR/XR pelvis 1-2V IMPRESSION: Degenerative changes of the right hip joint.
== END 2022-05-11 09:09 | disposition home or self-care (01) ==
LOC: HO.HOSX 09:08
PROVIDERS: Visit Provider Orthopaedic Surgery
DX: M25.551 Pain in right hip (principal); M25.552 Pain in left hip
CPT/HCPCS: 72170

== ENCOUNTER 2024-12-29 08:02 | Outpatient (REF) | payer MEDICARE, SELFPAY ==
--- NOTE | ~2024-12-29 | XR_ITS ---
EXAMINATION: XR HIP, RIGHT CLINICAL INFORMATION: M25.559 - Pain in unspecified hip COMPARISON: December 29, 2024 TECHNIQUE: AP bilateral and AP and frog-leg lateral views of the right hip. FINDINGS: Numerous surgical will project over the left hemipelvis. There are moderate vascular calcifications. There is mild degenerative changes pubic symphysis joint. Since prior examination, total hip replacement has been performed on the left. There is severe superior lateral right hip joint space narrowing with moderate marginal osteophytes involving acetabulum and femoral head. XR/XR hip RT min 2V IMPRESSION: Severe right hip osteoarthritis. Left total hip arthroplasty. Electronically signed by: Abilio Benton MD 12/29/2024 11:56 AM EDT
--- OUTSIDE RECORDS SUMMARY | 2025-01-01 08:06 | XMS_ITS | Encounter Summary ---
Author Organization [facility] Address [address] [place] [address] Phone Care Team Providers Care Supervisor Sound Technician Name Role Phone Byron Galindo DO Unavailable Sarthak Andersen DO Unavailable [phone] Richelle Jaeger CNP Unavailable Andressa Villegas MD Unavailable [phone] Sarina Avila MD Unavailable [phone] Baltazar Gill MD Unavailable Trish Meza ORDER PLANNER Unavailable [phone] Lj Mendoza DPM Unavailable Unavailable Renetta Rodriguez ORDER PLANNER Unavailable [phone] Evy Lockett MD Unavailable Byron Galindo DO Primary Care Provider [phone] Андрей Boyd MD Unavailable [phone] Ck Vickers MD Unavailable Bennett Regalado DO Primary Care Provider Jany Denton Primary Care Provider Sissy Jade PA-C Unavailable [phone] Greyson Rodriguez MD Primary Care Provider [phone] Encounter Details Date Type Department Care Team (Latest Contact Info) Description 07/30/2017 Transcribe Orders [facility] [address] [place] [address] Ck Vickers MD [address] [place] [address], [address] [place] [address] [email or web address] Neuropathy (Primary Dx) Social History [...] Description 04/13/2025 3:00 PM EST Office Visit [facility] at [address] [address] Sarthak Andersen DO [address] [place] [address] [email or web address] documented as of this encounter Results * (ABNORMAL) Monoclonal protein study, serum (07/30/2017 10:06 AM EST) TOTAL PROTEIN 7.0 6.3 - 7.9 g/dL [facility] MED AND PAT+ ALBUMIN 3.4 3.4 - 4.7 g/dL [facility]+ ALPHA-1 GLOBULIN 0.3 0.1 - 0.3 g/dL [facility]+ ALPHA-2 GLOBULIN 1.1(H) 0.6 - 1.0 g/dL [facility] PAT+ BETA-GLOBULIN 1.6(H) 0.7 - 1.2 g/dL [facility] PAT+ GAMMA-GLOBULIN 0.7 0.6 - 1.6 g/dL [facility] PAT+ A/G RATIO 0.94 [facility]+ M SPIKE Test component not applicable or not reported. not reported [facility] PAT+ M SPIKE Test component not applicable or not reported. not reported [facility]+ IMPRESSION SEE NOTE [facility]+ Comment: (NOTE) No apparent monoclonal protein on serum electrophoresis. See Immunofixation. 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 Suggest repeat testing in 6-12 months if clinically indicated. Suggest quantitative immunoglobulin level to assist in following monoclonal protein. Blood 07/30/2017 10:0 6 AM EST 07/30/2017 10:49 AM EST Ck Vickers MD LAB BLOOD ORDERABLES Final R esult [facility] PAT+ [address] [place] [address] * Antinuclear antibody (ANNEL) (07/30/2017 10:06 AM EST) ANNEL SCREEN ON HEP 2 Negative Negative [facility] Blood 07/30/2017 10:0 6 AM EST 07/30/2017 10:49 AM EST us Ck Vickers MD LAB BLOOD ORDERABLES Final R esult Performing Organization Address City/[facility]/ZIP Co de Phone Number [facility] [address] [place] [address] documented in this encounter Visit Diagnoses Diagnosis Neuropathy- Primary Mononeuritis of unspecified site documented in this encounter Care Teams Supervisor Sound Technician Relationship Specialty Start Date End Date Byron Galindo DO [address] [facility] [place] [address] PCP - General 03/22/17 03/29/18 Bennett Regalado DO [address] [address] [email or web address] PCP - General Family Medicine 03/30/18 10/20/20 Jany Denton FNP [address] [address] PCP - General 10/21/20 12/22/23 Greyson Rodriguez MD [address] [place] [address] PCP - General Internal Medicine 12/23/23 Byron Galindo DO [address] [place] [address] Historical LMR Provider 03/20/17 Sarthak Andersen DO [address] [place] [address] [email or web address] Primary Oncologist Medical Oncology 03/20/17 Richelle Jaeger, SUPERVISOR PRE WAVE [address] [place] [address] Historical LMR Provider 03/20/17 Andressa Godoy MD [address] [place] [address], [address] [place] [address] Historical LMR Provider 03/20/17 06/07/21 Sarina Avila MD [address] [place] [address] [email or web address] Historical LMR Provider 03/20/17 Baltazar Gill MD [address] [facility], [address] [place] [address] Historical LMR Provider 03/20/17 06/07/21 Trish Meza, ORDER PLANNER [address] [place] [address] Historical LMR Provider 03/20/17 2 Lj Mendoza DPM [address] [place] [address] Historical LMR Provider 03/20/1706/07/21 Renetta Rodriguez, ORDER PLANNER [address] [place] [address] Historical LMR Provider 03/20/17 2 Evy Lockett MD [address] [place] [address] [email or web address] Historical LMR Provider 03/20/17 06/07/21 Андрей Boyd MD [address] [place] [address], [address] [place] [address] Urology 09/27/17 Ck Vickers MD [address] [place] [address], [address] [place] [address] Neurology 09/27/17 Sissy Jade PA-C [address] [place] [address] Physician Outreach Analyst Hematology 04/18/21 documented as of this encounter Additional Source Comments The information contained in this document represents components of the legal health record. It is not the complete legal health record.[facility]
== END 2024-12-29 08:03 | disposition home or self-care (01) ==
LOC: HO.HOSX 08:02
PROVIDERS: Visit Provider Physician Assistant
DX: M25.551 Pain in right hip (principal); M53.3 Sacrococcygeal disorders, not elsewhere classified; Z96.642 Presence of left artificial hip joint; Z85.46 Personal history of malignant neoplasm of prostate; Z87.891 Personal history of nicotine dependence
CPT/HCPCS: 73502; 99212

== ENCOUNTER 2024-12-29 11:32 | Outpatient (AMB) | payer MEDICARE, SELFPAY ==
--- OUTSIDE RECORDS SUMMARY | 2024-12-29 11:34 | XMS_ITS | Encounter Summary ---
Author Organization [employer] Address [address] [place] [address] Care Team Providers Care Guard Immigration Name Role Phone Saman Mclean DEMIAN Unavailable [phone] Greyson Rodriguez MD Primary Care Provider [phone] Encounter Details Date Type Department Care Team (Late st Contact Info) Description 12/29/2023 Orders Only [facility] [address] [place] [address] Provider, Not In System Social History Tobacco Use Types Packs/Day Years Used Date Smoking Tobacco: Former Cigarettes Q uit: 05/14/2021 Smokeless Tobacco: Never Alcohol Use Standard Drinks/Week Comments Yes 2 (1 standard drink = 0.6 oz pur e alcohol) whiskey and water Alcohol Answer Date Recorded How often do you have a drink containing alcohol ? 0 07/12/2023 How many drinks containing a lcohol do you have on a typical day when you are drinking? 0 07/12/2023 How often do you have six or more drinks on one occasion? 0 07/12/2023 Housing Stability Answer Date Recorded What is your housing situation today? I have vimal kaba 06/07/[address] you li ve. Do you have problems with any of the following? None of the above 06/07/2023 Food Insecurity Answer Date Recorded Within the past 12 months, y ou worried that your food would run out before you got money to buy more: Never True 06/07/2023 Within the past 12 months,th e food you bought just didn't last and you didn't have enough money to get more: Never True 12/2023 Transportation Answer Date Recorded In the past 12 months, has l ack of transportation kept you from medical appts, meetings, work or from getting things needed for daily living? No 06/07/2023 Intimate Partner Violence Answer Date R ecorded Within the last year, have y ou been afraid of your partner or ex-partner? 2 07/12/2023 Within the last year, have y ou been humiliated or emotionally abused in other ways by your partner or ex-partner? 2 Within the last year, have y ou been kicked, hit, slapped, or otherwise physically hurt by your partner or ex-partner? 2 07/12/2023 Within the last year, have y ou been raped or forced to have any kind of sexual activity by your partner or ex-partner? 2 07/12/2023 Utilities Answer Date Recorded In the past 12 months, has t he electric, gas, oil or water company threatened to shut off services in your home? No 06/07/2023 Depression Answer Date Recorded Patient Health Questionnaire-2 Score 1 06/07/2023 Sex and Gender Information Value Date Recorded Sex Assigned at Male 05/05/2022 8:17 AM EST Legal Sex Male 6:22 PM EDT Gender Identity Male 03/27/2022 6:22 PM EDT Sexual Orientation Straight 03/27/2022 6: 22 PM EDT documented as of this encounter Plan of Treatment Upcoming Encounters Date Type Department Care Team (Late st Contact Info) Description 01/10/2025 2:45 PM EDT Office Visit [facility] [address] [place] [phone] Saman Mclean LLD [address] [place] [phone] 06/12/2025 12:45 PM EST Office Visit [facility] [address] [place] [phone] Al[address] Mir[address]es [address] [address] documented as of this encounter Procedures Procedure Name Priority Date/Time Associated Diagnosis Comments PSA, DIAGNOSTIC Routine 12/20/2023 12:08 PM EDT documented in this encounter Results * PSA, Diagnostic (12/20/2023 12:08 PM EDT) Blood us Not In System Provider LAB BLOOD ORDERABLES Edit ed Result - Final documented in this encounter Visit Diagnoses Not on filedocumented in this encounter Care Teams Guard Immigration Relationship Specialty Start Date End Date Greyson Rodriguez MD [address] [place] [address] PCP - General Internal Medicine 05/04/23 Saman Mclean LLD [address] [place] [address] Dentist Dental Die Sizer 03/27/22 documented as of this encounter
--- OUTSIDE RECORDS SUMMARY | 2024-12-29 11:34 | XMS_ITS | Encounter Summary ---
Author Organization [facility] Address [address] [place] [phone] Phone Care Team Providers Care Lifter/Driver Name Role Phone Byron Galindo DO Unavailable Sarthak Andersen DO Unavailable [phone] Richelle Jaeger CNP Unavailable Andressa Villegas MD Unavailable Sarina Avila MD Unavailable Baltazar Gill MD Unavailable Trish Meza BID CLERK Unavailable Lj Mendoza DPM Unavailable Unavailable Renetta Rodriguez BID CLERK Unavailable Evy Lockett MD Unavailable Byron Galindo DO Primary Care Provider [phone] Андрей Boyd MD Unavailable [phone] Ck Vickers MD Unavailable [phone] Bennett Regalado DO Primary Care Provider Jany Denton Primary Care Provider Sissy Jade PA-C Unavailable [phone] Greyson Rodriguez MD Primary Care Provider [phone] Encounter Details Date Type Department Care Team (Latest Contact Info) Description 07/30/2017 Transcribe Orders [facility] [address] [place] [address] Ck Vickers MD [address] [place] [address], [address] [place] [address] [email or web address] Neuropathy (Primary Dx) Social History Tobacco Use Types Packs/Day Years Used Date Smoking Tobacco: Former Cigarettes Q uit: 07/2016 Smokeless Tobacco: Former Sex and Gender Information Value Date Recorded Sex Assigned at Not on file Legal Sex Male 10:06 PM EDT Gender Identity Not on file Sexual Orientation Not on file documented as of this encounter Plan of Treatment Upcoming Encounters Date Type Department Care Team (Late st Contact Info) Description 04/13/2025 3:00 PM EST Office Visit [facility] at [address] [address] Sarthak Andersen DO [address] [place] [address] [email or web address] documented as of this encounter Results * (ABNORMAL) Monoclonal protein study, serum (07/30/2017 10:06 AM EST) TOTAL PROTEIN 7.0 6.3 - 7.9 g/dL [facility] DPT OF LAB MED AND PAT+ ALBUMIN 3.4 3.4 - 4.7 g/dL [facility] DPT OF LAB MED AND PAT+ ALPHA-1 GLOBULIN 0.3 0.1 - 0.3 g/dL [facility] DPT OF LAB MED AND PAT+ ALPHA-2 GLOBULIN 1.1(H) 0.6 - 1.0 g/dL [facility] DPT OF LAB MED AND PAT+ BETA-GLOBULIN 1.6(H) 0.7 - 1.2 g/dL [facility] DPT OF LAB MED AND PAT+ GAMMA-GLOBULIN 0.7 0.6 - 1.6 g/dL [facility] DPT OF LAB MED AND PAT+ A/G RATIO 0.94 [facility] MED [facility] PAT+ M SPIKE Test component not applicable or not reported. not reported [facility]PT OF LAB MED AND PAT+ M SPIKE Test component not applicable or not reported. not reported [facility] OF LAB MED AND PAT+ IMPRESSION SEE NOTE [facility] DPT OF LAB MED AND PAT+ Comment: (NOTE) No apparent monoclonal protein on serum electrophoresis. See Immunofixation. 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 Suggest repeat testing in 6-12 months if clinically indicated. Suggest quantitative immunoglobulin level to assist in following monoclonal protein. Blood 07/30/2017 10:0 6 AM EST 07/30/2017 10:49 AM EST Ck Vickers MD LAB BLOOD ORDERABLES Final R esult [facility] DPT OF LAB MED AND PAT+ [address] [place] [address] * Antinuclear antibody (ANNEL) (07/30/2017 10:06 AM EST) ANNEL SCREEN ON HEP 2 Negative Negative [facility] Blood 07/30/2017 10:0 6 AM EST 07/30/2017 10:49 AM EST us Ck Vickers MD LAB BLOOD ORDERABLES Final R esult Performing Organization Address City/[facility]/ZIP Co de Phone Number [facility] [address] [place] [address] documented in this encounter Visit Diagnoses Diagnosis Neuropathy- Primary Mononeuritis of unspecified site documented in this encounter Care Teams Lifter/Driver Relationship Specialty Start Date End Date Byron Galindo DO [address] [facility] [place] [address] PCP - General 03/22/17 03/29/18 Bennett Regalado DO [address] [address] [email or web address] PCP - General Family Medicine 03/30/18 10/20/20 Jany Denton FNP [address] [place] [address] PCP - General 10/21/20 12/22/23 Greyson Rodriguez MD [address] [facility] [place] [address] PCP - General Internal Medicine 12/23/23 Byron Galindo DO [address] [place] [address] Historical LMR Provider 03/20/17 Sarthak Andersen DO [address] [place] [address] [email or web address] Primary Oncologist Medical Oncology 03/20/17 Richelle Jaeger, READING COACH [address] [place] [address] Historical LMR Provider 03/20/17 Andressa Godoy MD [address] [facility], 2nd [place] [address] Historical LMR Provider 03/20/17 06/07/21 Sarina Avila MD [address] [place] [address] [email or web address] Historical LMR Provider 03/20/17 Baltazar Gill MD [address] [facility], 2nd [place] [address] Historical LMR Provider 03/20/17 06/07/21 Trish Meza, BID CLERK [address] [place] [address] Historical LMR Provider 03/20/17 2 Lj Mendoza DPM [address] [place] [address] Historical LMR Provider 03/20/1706/07/21 Renetta Rodriguez, BID CLERK [address] [place] [address] Historical LMR Provider 03/20/17 2 Evy Lockett MD [address] [place] [address] [email or web address] Historical LMR Provider 03/20/17 06/07/21 Андрей Boyd MD [address] [place] [address], [address] [place] [address] Urology 09/27/17 Ck Vickers MD [address] [place] [address], [address] [place] [address] Neurology 09/27/17 Sissy Jade PA-C [address] [place] [address] Physician Irrigation Pump Installer Hematology 04/18/21 documented as of this encounter Additional Source Comments The information contained in this document represents components of the legal health record. It is not the complete legal health record.[facility]
--- NOTE | 2024-12-29 11:42 | A.OFFVIS_ITS ---
Intake Visit Reasons: new prob - right hip pain Intake Note: Ck is a 79 year old male who presents today for a New Problem visit with complaints of Right Hip Pain. Patient reports that he has no pain but he notices that he is having limited ROM and restriction of certain actives like putting on shoes and getting dressed. Pain is triggered when staying in prolonged positions like sleeping on his side. History of Left MELINDA ~2022 with NE Hx of prostate and tonsil cancer - under yearly review Also reports that he has recently been struggling with memory issues Allergies Seasonal Allergies Allergy (Verified 02/26/22 13:30) unknown HPI HPI new prob - right hip pain: Details: Ck is a 79 year old male who presents today for a New Problem visit with complaints of Right Hip Pain. Patient reports that he has no pain but he notices that he is having limited ROM and restriction of certain actives like putting on shoes and getting dressed. Pain is triggered when staying in prolonged positions like sleeping on his side. He reports that the pain is located on the right side of the low back/buttock. Denies groin pain. History of Left MELINDA ~2021 with NE Hx of prostate and tonsil cancer - under yearly review Also reports that he has recently been struggling with memory issues PFSH Medical History Arthritis Balance problem Heart burn Primary osteoarthritis of left hip Prostate cancer Tonsil cancer Surgical History H/O vasectomy History of appendectomy History of bilateral cataract extraction History of hernia repair History of tonsillectomy History of tooth extraction Social History Household Members: None Housing: Apartment Are you a primary healthcare financial analyst to a significant other at home: No Do you presently have visiting nurse or other home services: No Alcohol intake: current Alcohol intake frequency: a few times a week Alcohol type: beer and wine Comment: wrist are painful when usinf cane Patient Tobacco Use Status: Former Tobacco user Tobacco use type: Cigarette Cigarettes Per Day: 4 Second Hand Smoke Exposure: Yes (Visiting son) service: No Current occupational status: retired Current occupation: rt handed Review of Systems Const All systems reviewed & are unremarkable except as noted in HPI and below Physical Exam Const General: cooperative, healthy appearing and no acute distress Resp Effort & Inspection: normal respiratory effort and able to speak in complete sentences Extrem Other: Right hip: Limitations with internal and external rotation of the hip. Denies groin pain with range of motion of internal external rotation. No tenderness to palpation over the greater trochanteric bursa. 4/5 strength with resisted hip flexion, knee extension, abduction, and abduction. Able to perform straight leg raise with obvious quad weakness. NVI. Psych Appearance: grossly normal Mental Status: mental status grossly normal Attitude: cooperative Assessment & Plan Assessment & Plan (1) Sacroiliac joint dysfunction of right side: Code(s): M53.3 - Sacrococcygeal disorders, not elsewhere classified Category: Medical Plan Ck is a 79 year old male who presents today for a New Problem visit with complaints of Right Hip Pain. Patient reports that he has no pain but he notices that he is having limited ROM and restriction of certain actives like putting on shoes and getting dressed. Pain is triggered when staying in prolonged positions like sleeping on his side. He reports that the pain is located on the right side of the low back/buttock. Denies groin pain. History of Left MELINDA ~2021 with NE Hx of prostate and tonsil cancer - under yearly review Also reports that he has recently been struggling with memory issues While in the office today, the patient declines any symptoms of groin pain with activity. His main concern is limitations in range of motion such as bringing his right lower extremity up resting his ankle onto his left knee. We discussed that this is likely due to the restrictions of the arthritis within the right hip joint. During these activities as well as moving from a sitting to standing position the patient is experiencing low back pain over the SI joint and into the buttock. He denies any numbness or tingling. I have recommended that he follow up with Dr. Mena for further evaluation and treatment of his SI joint. Should further workup be negative for SI joint and involvement the patient's should see Dr. Roth for further discussion of right hip arthritis with possible total joint replacement. X-rays of the right hip which were obtained while in the office today and were reviewed by me, Debra Meraz PA-C, revealed significant osteoarthritis. Orders: Orders XR hip RT min 2V Today M25.559 - Pain in unspecified hip Coding Level of Care Code Est Pt Level 3 (41760) Diagnoses Sacroiliac joint dysfunction of right side M53.3
== END 2024-12-29 12:21 | disposition home or self-care (01) ==
LOC: HO.HOS 11:33
PROVIDERS: PCP Nurse Practitioner Family; Visit Provider Physician Assistant
DX: M53.3 Sacrococcygeal disorders, not elsewhere classified (principal)
CPT/HCPCS: 99213

== ENCOUNTER → 2024-12-29 11:39 | Outpatient (BNV) | payer MEDICARE, SELFPAY | PROVIDERS: Visit Provider Radiology Diagnostic Radiology | DX: M16.11 Unilateral primary osteoarthritis, right hip (principal) | CPT/HCPCS: 73502 ==

== ENCOUNTER 2025-02-16 10:28 | Outpatient (AMB) | payer MEDICARE, SELFPAY ==
--- NOTE | 2025-02-16 10:44 | MHC.OFFVIS ---
Vital Signs 02/16/25 10:50 Height 5 ft 9 in Weight 200 lb BMI 29.5 Intake Visit Reasons: INKER AND OPAQUER-Back pain Intake Note: Ck is a 79 year old male who presents today as a new patient for lower back pain. Patient was referred by [facility] 11/09/24 for right hip pain, SI joint. At today's visit he states that for the past five months he has had a dull ache that radiates from his lower back into the right hip. Patient reports that he had left hip surgery 2022 NE. He states that he does at home exercises to help relieve the pain, but would like to discuss physical therapy. Allergies Seasonal Allergies Allergy (Verified 02/16/25 10:50) unknown Medication List - Last Reconciled 02/16/25 by Valerie Lim MD albuterol sulfate 90 mcg/actuation 2 puffs inhalation Q6H PRN aspirin 81 mg PO DAILY atorvastatin 80 mg PO DAILY atorvastatin 40 mg PO BEDTIME famotidine 20 mg PO DAILY PRN loratadine (Claritin) 10 mL PO DAILY multivitamin 1 tab PO DAILY [raised toliet seat As directed] tamsulosin 0.8 mg PO DAILY trazodone 100 mg PO BEDTIME valacyclovir mg PO walker Folding front wheeled walker HPI Comments Details: At least 5 months of worsening hip pain, right side. Difficult to put socks on. He is unable to pinpoint exactly where it starts but he does not think he has groin pain. No numbness on leg. He did see Debra from ortho, buit since no groin pain, they didn't think it was from hip joint. Although xrays reports severe OA. He admits to chronic on and off back pain maybe 5 years ago. Doesn't remember which side. Remembers it started from too much recliner use. Told to have low back arthritis, referred to PT. Started moving better. But would return only once a year if ever. Ended up with Left MELINDA which helped the pain overall. [facility] Medical History Arthritis Balance problem Heart burn Primary osteoarthritis of left hip Prostate cancer Tonsil cancer Surgical History H/O vasectomy History of appendectomy History of bilateral cataract extraction History of hernia repair History of tonsillectomy History of tooth extraction Social History Household Members: None Housing: Apartment Are you a primary behavioral health care coordinator to a significant other at home: No Do you presently have visiting nurse or other home services: No Alcohol intake: current Alcohol intake frequency: a few times a week Alcohol type: beer and wine Comment: wrist are painful when usinf cane Patient Tobacco Use Status: Former Tobacco user Tobacco use type: Cigarette Cigarettes Per Day: 4 Second Hand Smoke Exposure: Yes (Visiting son) service: No Current occupational status: retired Current occupation: rt handed Review of Systems Const All systems reviewed & are unremarkable except as noted in HPI and below Physical Exam Exam Exam: Constitutional: Patient appears to be in no acute distress, well nourished and well developed. Patient was appropriately conversant and oriented. Good historian. MSK: No specific abnormalities found on inspection of the spine and all extremities. No pain with palpation over the lumbar area. No tenderness over SI joint GT. Lumbar ROM was full. Straight-leg raising test negative. FABERE test positive right groin pain. Gillet test is negative. Strength is 5/5 in all muscle groups tested. No increased tone noted. Neurological: Neurologic examination of the upper and lower extremities was nonfocal with intact sensation, muscle stretch reflexes and without focal motor deficits . Babinski was down going bilaterally. Clonus was negative. Gait is antalgic without loss of balance.. Vital Signs: BMI result Body Mass Index 29.5 Results Reviewed Results Reviewed: [facility] [address] [place] [address] Drive [address] [place] [address] XRay Report Signed Patient: Ck Carvajal MR#: [id number] : 1945 Acct:[id number] Age/Sex: 79 / M ADM Date: 12/20/24 Loc: [facility] Attending Dr: Debra Meraz PA-C Ordering Physician: Debra Meraz PA-C Date of Service: 12/29/24 Procedure(s): XR hip RT min 2V Accession Number(s): [id number] cc: Debra Meraz PA-C~ EXAMINATION: XR HIP, RIGHT CLINICAL INFORMATION: M25.559 - Pain in unspecified hip COMPARISON: December 29, 2024 TECHNIQUE: AP bilateral and AP and frog-leg lateral views of the right hip. FINDINGS: Numerous surgical will project over the left hemipelvis. There are moderate vascular calcifications. There is mild degenerative changes pubic symphysis joint. Since prior examination, total hip replacement has been performed on the left. There is severe superior lateral right hip joint space narrowing with moderate marginal osteophytes involving acetabulum and femoral head. XR/XR hip RT min 2V IMPRESSION: Severe right hip osteoarthritis. Left total hip arthroplasty. I reviewed records from the following: Ortho Assessment & Plan Assessment & Plan (1) Osteoarthritis of right hip: Code(s): M16.11 - Unilateral primary osteoarthritis, right hip Category: Medical Qualifiers: Osteoarthritis type: primary Qualified Code(s): M16.11 - Unilateral primary osteoarthritis, right hip Plan I believe his symptoms are from right hip osteoarthritis. Although he does not complain of right groin pain, it is positive when doing the NANCIE test. X-ray results support this diagnosis. He does not have any SI joint tenderness or dysfunction on exam. There are no signs of lumbar radiculopathy. We agreed that it is best to consult with Dr. Roth, for consideration of surgery. Assessment and plan discussed with patient, and patient was agreeable. All questions were answered thoroughly. Valerie Lim MD, MARQUISE Board Certified, [place] Board [employer] Physical Medicine and Rehabilitation (ABPMR) Board Certified, [place] Board of Electrodiagnostic Medicine (ABEM) Coding Level of Care Code New Pt Level 4 (19053) Diagnoses Primary osteoarthritis of right hip M16.11 Osteoarthritis type: primary
[2025-02-16 10:50] VITALS: BMI 29.5
--- OUTSIDE RECORDS SUMMARY | 2025-02-16 11:03 | XMS_ITS | Encounter Summary ---
Author Organization [facility] Address [address] [place] [address] [place] [address] Care Team Providers Care Special Machine Operator Name Role Phone Saman Mclean DMD Unavailable Unavailable Greyson Rodriguez MD Primary Care Provider [phone] Reason for Referral * Consultation (Routine) - Canceled Specialty Diagnoses / Procedures Referred By Contac t Referred To Contact Cardiology Diagnoses Atherosclerosis of coronary artery of [place] heart, unspecified vessel or lesion type, unspecified whether angina present Greyson Rodriguez MD [address] [place] [address] Phone: tel: fax: Referral ID Status Reason Start Date Expiration Date Visits Requested Visits Authorized [id number] Canceled Specialty Services Required 08/13/2023 08/12/2024 1 1 Encounter Details Date Type Department Care Team (Late st Contact Info) Description 08/13/2023 Orders Only [facility] [address] [place] [phone] Greyson Rodriguez MD [address] [place] [address] Atherosclerosis of coronary artery of [place] heart, unspecified vessel or lesion type, unspecified whether angina present (Primary Dx) Social History Tobacco Use Types [...] the past 12 months, has t he [employer], gas, oil or water [employer] threatened to shut off services in your [...] Upcoming Encounters Date Type Department Care Team (Daniel Contact Info) Description 06/12/2025 12:45 PM EST Office Visit [facility] [address] [place] [phone] Alistair Miramontes, [address] [address] 07/17/2025 10:30 AM EST Office Visit [facility] [address] [place] [phone] Yanelis Ariza, COLLETTED [address] [place] [address] Scheduled Referrals Name Type Priority Associated Diagnoses Orde r Schedule Referral to Cardiology Outpatient Referral Routine Atherosclerosis of coronary artery of [place] heart, unspecified vessel or lesion type, unspecified whether angina present Expected: 08/13/2023 (Approximate), Expires: 08/12/2024 documented as of this encounter Visit Diagnoses Diagnosis Atherosclerosis of coronary artery of [place] heart, unspecified vessel or lesion type, unspecified whether angina present- Primary documented in this encounter Care Teams Special Machine Operator Relationship Specialty Start Date End Date Greyson Rodriguez MD [address] [place] [address] PCP - General Internal Medicine 05/04/23 Saman Mclean DMD Dentist Dental Broadcast Operations Engineer 03/27/22 documented as of this encounter
--- OUTSIDE RECORDS SUMMARY | 2025-02-16 11:03 | XMS_ITS | Encounter Summary ---
Author Organization [facility] Address [address] [place] [address] Phone Care Team Providers Care Finishing Area Operator Name Role Phone Byron Galindo DO Unavailable Sarthak Andersen DO Unavailable [phone] Richelle Jaeger CNP Unavailable Andressa Villegas MD Unavailable [phone] Sarina Avila MD Unavailable Baltazar Gill MD Unavailable [phone] Trish Meza PUBLICATIONS INSPECTOR Unavailable Lj Mendoza DPM Unavailable Unavailable Renetta Rodriguez PUBLICATIONS INSPECTOR Unavailable [phone] Evy Lockett MD Unavailable Byron Galindo DO Primary Care Provider [phone] Андрей Boyd MD Unavailable [phone] Ck Vickers MD Unavailable Bennett Regalado DO Primary Care Provider Jany Denton Primary Care Provider Sissy Jade PA-C Unavailable [phone] Greyson Rodriguez MD Primary Care Provider [phone] Encounter Details Date Type Department Care Team (Late st Contact Info) Description 04/02/2017 Procedure Pass [facility] [address] [place] [address] Social History Tobacco Use Types Packs/Day Years Used Date Smoking Tobacco: Never Assessed Sex and Gender Information Value Date Recorded Sex Assigned at Not on file Legal Sex Male 10:06 PM EDT Gender Identity Not on file Sexual Orientation Not on file documented as of this encounter Plan of Treatment Upcoming Encounters Date Type Department Care Team (Late Contact Info) Description 04/13/2025 3:00 PM EST Office Visit [facility] [address] [place] [address] Sarthak Andersen DO [address] [place] [address] [email or web address] documented as of this encounter Visit Diagnoses Not on filedocumented in this encounter Care Teams Finishing Area Operator Relationship Specialty Start Date End Date Byron Galindo DO [address] [place] [address] [place] [address] PCP - General 03/22/17 03/29/18 Bennett Regalado DO [address] [address] [email or web address] PCP - General Family Medicine 03/30/18 10/20/20 Jany Denton FNP [address] [address] PCP - General 10/21/20 12/22/23 Greyson Rodriguez MD [address] [place] [address] PCP - General Internal Medicine 12/23/23 Byron Galindo DO [address] [place] [address] [email or web address] Historical LMR Provider 03/20/17 Sarthak Andersen DO [address] [place] [address] [email or web address] Primary Oncologist Medical Oncology 03/20/17 Richelle Jaeger, CONSUELO [address] [place] [address] [email or web address] Historical LMR Provider 03/20/17 2 Andressa Villegas MD [address] [address] [email or web address] Historical LMR Provider 03/20/17 06/07/21 Sarina Avila MD [address] [place] [address] [email or web address] Historical LMR Provider 03/20/17 Baltazar Gill MD [address] [address] [email or web address] Historical LMR Provider 03/20/17 06/07/21 Trish Meza, TORRES [address] [place] [address] Historical LMR Provider 03/20/17 2 Lj Mendoza DPM [address] [place] [address] Historical LMR Provider 03/20/1706/07/21 Renetta Rodriguez NP [address] [place] [address] Historical LMR Provider 03/20/17 2 Evy Lockett MD [address] [place] [address] Historical LMR Provider 03/20/17 06/07/21 Андрей Boyd MD [address] [place] [address], [address] [place] [address] Urology 09/27/17 Ck Vickers MD [address] [place] [address], [address] [place] [address] Neurology 09/27/17 Sissy Jade PA-C [address] [place] [address] Physician Ruffler Hematology 04/18/21 documented as of this encounter Additional Source Comments The information contained in this document represents components of the legal health record. It is not the complete legal health record.[facility]
--- OUTSIDE RECORDS SUMMARY | 2025-02-16 11:03 | XMS_ITS | Encounter Summary ---
Author Organization [employer] Address [address] [facility] 7t [place] [address] Care Team Providers Care Ornament Maker Hand Name Role Phone CaridadKarylang DMD Unavailable Unavailable Greyson Rodriguez MD Primary Care Provider [phone] Encounter Details Date Type Department Care Team (Late st Contact Info) Description 12/29/2023 Orders Only [facility] [address] [place] [address] Provider, Not In System Social [...] Care Team (Late st Contact Info) Description 06/12/2025 12:45 PM EST Office Visit [facility] [address] [place] [phone] Alistair Miramontes [address] [address] 07/17/2025 10:30 AM EST Office Visit [facility] [address] [place] [phone] Yanelis Ariza LLD [address] [place] [address] documented as of this encounter Procedures Procedure Name Priority Date/Time Associated Diagnosis Comments PSA, DIAGNOSTIC Routine 12/20/2023 12:08 PM EDT documented in this encounter Results * PSA, Diagnostic (12/20/2023 12:08 PM EDT) Blood us Not In System Provider LAB BLOOD ORDERABLES Edit ed Result - Final documented in this encounter Visit Diagnoses Not on filedocumented in this encounter Care Teams Ornament Maker Hand Relationship Specialty Start Date End Date Greyson Rodriguez MD [address] [place] [address] PCP - General Internal Medicine 05/04/23 Saman Mclean DMD Dentist Dental Laboratory Specialist 03/27/22 documented as of this encounter
--- OUTSIDE RECORDS SUMMARY | 2025-02-16 11:03 | XMS_ITS | Clinical Summary ---
Author Organization [facility] Address [address] [place] [address] Phone Care Team Providers Care Air Table Operator Name Role Phone GiannaByron DO Unavailable Sarthak Andersen DO Unavailable [phone] Sarina Avila MD Unavailable Андрей Boyd MD Unavailable [phone] Vipul Vickers MD Unavailable Sissy Jade PA-C Unavailable [phone] Greyson Rodriguez MD Primary Care Provider [phone] Allergies No known active allergies Medications multivitamin per tablet as directed Active omega 2-ief-fzf-fish oil 1,000 mg (120 mg-180 mg) Cap Take 1 capsule by mouth daily. Active valACYclovir (VALTREX) 500 MG tablet Take 1 tablet by mouth daily as needed. 9 Active ibuprofen (ADVIL,MOTRIN) 200 MG tablet Take 400 mg by mouth every 8 (eight) hours as needed. Active acetaminophen (TYLENOL) 500 mg capsule Take 1,000 mg by mouth every 6 (six) hours as needed. Active simvastatin (ZOCOR) 40 MG tablet Take 40 mg by mouth nightly. 3 8 Active traZODone (DESYREL) 50 MG tablet Take 100 mg by mouth nightly at bedtime. Active tamsulosin (FLOMAX) 0.4 mg Cap Take 0.4 mg by mouth daily. Active melatonin 3 mg Tab Take 3 mg by mouth nightly at bedtime as needed. Active buPROPion (WELLBUTRIN XL) 150 MG ER 24 hr tablet 1 Active amoxicillin (AMOXIL) 500 MG capsule TAKE 4 CAPSULES BY MOUTH 1 HOUR PRIOR TO DENTAL APPOINTMENT 3 Active amoxicillin (AMOXIL) 500 MG capsule Take 2,000 mg by mouth. 3 Active aspirin 81 MG EC tablet Take 81 mg by mouth daily. Active Active Problems Patient Care Coordination No te Formatting of this note migh t be different from the original. Height 174.8cm no shoes on. 04/14/19 CA Problem Noted Date Diagnosed Date MGUS (monoclonal gammopathy of unknown significa nce) 04/14/2019 Elevated PSA 07/02/2017 Anxiety 07/01/2017 Assessment & Plan (07/01/2017 1:30 PM EST): Following with a therapist Saima Castillo Dyslipidemia 07/01/2017 Dry mouth 07/01/2017 Dysphagia 07/01/2017 Dysthymia 07/01/2017 Assessment & Plan (07/01/2017 2:30 PM EST): Following with therapist and on wellbutrin. Stable. GERD (gastroesophageal reflux disease) 8 Assessment & Plan (07/01/2017 2:28 PM EST): Follows with GI on PPI. Pt advised to avoid late night meals, spicy foods, foods high in fat, caffeine, tobacco and alcohol. Pt advised to elevate the head of the bed and reduce weight. 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 MCI ? Vascular etiology, ? Side effects from chemotherapy. Pt to have labs and will be evaluated by Neurology. Consider imaging. Check labs. Annual physical exam 07/01/2017 Assessment & Plan (07/01/2017 2:27 PM EST): Colonoscopy 08/06/10 with normal findings and 10 year f/u advised. AAA screening negative done in 2012. Due for fasting labs. Prevnar today otherwise UTD with vaccines. Pt counseled on diet and exercise regimen. History of radiation to head and neck region History of malignant neoplasm of tonsil 06/29/19 18 Non-recurrent unilateral ing uinal hernia without obstruction or gangrene 06/02/2017 Assessment & Plan (06/02/2017 12:59 PM EST): We discussed the anatomy of the abdominal wall and pathophysiology of hernia. The patient understands hernias are safe to live with, with a very low likelihood of strangulation requiring emergent surgical intervention. We reviewed steps of repair with mesh placement, and expected postoperative course with need for activity restriction with wearing of scrotal support. We discussed the risks of inguinal hernia surgery: -Reaction to anesthesia -Infection and bleeding at the incision site requiring mesh removal -Nerve damage, numbness of skin, loss of blood supply to scrotum or testicles resulting in testicular atrophy; chronic pain -Damage to the cord structures, specifically the vas deferens, resulting in infertility -Damage to the femoral artery or vein -Recurrence. At this point, as he has not very symptomatic, he would like to watch and wait. We discussed signs and symptoms that would warrant seeking emergency attention. He also knows that the hernia becomes bigger or more painful, he can call us to schedule repair. All questions were answered. Hyperlipidemia 05/19/2017 Assessment & Plan (07/01/2017 2:30 PM EST): Pt on statin. Counseled on diet and exercise regimen. We'll check labs. 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 Undergoing radiation treatment. Follows with ENT Dr Naik q 3 months. Regular endoscopy. Treated with chemoradiation. Oncologist Dr Andersen. Immunizations Immunization Administration Dates Next Due COVID-19 (Pre-03/22) Moderna Vaccine, mRNA, PF 0 07/15/2020 Hepatitis B 02/06/2009,01/03/2009 Hepatitis B Adult 07/03/2010 INFLUENZA, SPLIT VIRUS, TRIVALENT PF 02/13/2015 INFLUENZA, SPLIT VIRUS, TRIVALENT W/ PRESERVATIV E IM 02/11/2016,02/16/2014 Influenza, Unspecified Formulation 01/30/2016 Pneumococcal conjugate PCV13 07/01/2017 Pneumococcal polysaccharide PPSV23 02/11/2016, Td (adult) 5 Lf Tetanus Toxoid, PF, Adsorbed 05/2003 Tdap 01/12/2014 Zoster live 02/16/2014 Zoster recombinant 02/03/2018 Social History Tobacco Use Types Packs/Day Years Used Date Smoking Tobacco: Every Day Smokeless Tobacco: Former Comments:4 cigs/day Education Answer Date Recorded Are you interested in more education? Not on rosa e 09/25/2022 Are you concerned about learning? Not on file 09/25/2022 No 09/25/2022 No 09/25/2022 Digital Access Answer Date Recorded No 10/24/2022 No 10/24/2022 Reliable internet access at home? Not on file 10/24/2022 Device with a working camera? Not on file Sex and Gender Information Value Date Recorded Sex Assigned at Not on file Legal Sex Male 10:06 PM EDT Gender Identity Not on file Sexual Orientation Not on file Last Filed Vital Signs Vital Sign Reading Time Taken Comments Blood Pressure 106/65 04/14/2024 3:36 PM EST Pulse 83 04/14/2024 3:36 PM EST Temperature 36.4 C (97.5 F) 04/14/2024 3:36 PM EST Respiratory Rate 16 09/28/2017 1:56 PM EDT Oxygen Saturation 97% 04/14/2024 3:36 PM EST Inhaled Oxygen Concentration - - Weight 95.1 kg (209 lb 11.2 oz) 04/14/2024 3:31 PM EST Height 174.8 cm (5' 8.82 ) 04/14/2024 3:30 PM ES T Body Mass Index 31.13 04/14/2024 3:30 PM EST Plan of Treatment Upcoming Encounters Date Type Department Care Team (Late st Contact Info) Description 04/13/2025 3:00 PM EST Office Visit [facility] Center at [address] [address] Nathaly De León Jannette, DO [address] [place] [address] [email or web address] Health Maintenance Due Date Last Done Comments DEPRESSION SCREENING 1959 SMOKING Hx and SMOKELESS TOBACCO SCREENING 1960 HEPATITIS C SCREENING 1965 ZOSTER VACCINES (2 of 2) 03/31/2018 02/03/2018, 01/29 RSV VACCINE (1 - 1-dose 75+ series) 2022 INFLUENZA VACCINE (#1) 2024 , 05/05/2022, 03/07/2021, Additional history exists COVID-19 VACCINE ( season) 2025 03/25/2023, 05/05/2022, 10/28/2021, Additional history exists LIPID PANEL 04/10/2025 04/10/2024, 07/02/2017 Adult Td,Tdap Booster 01/25/2034 01/26/2024 , 01/12/2014, 07/30/2003 PNEUMOCOCCAL VACCINES (50+ years) Completed 07/01/2017, 02/11/2016, 09/21/2012 HEPATITIS A VACCINES Aged Out No long er eligible based on patient's age to complete this topic HIB VACCINES Aged Out No longer eligi ble based on patient's age to complete this topic MENINGOCOCCAL VACCINES (ACWY) Aged Out No longer eligible based on patient's age to complete this topic MENINGOCOCCAL VACCINES (B) Aged Out N o longer eligible based on patient's age to complete this topic Medical Devices Not on file Procedures Procedure Name Priority Date/Time Associated Diagnosis Comments LIPID PANEL Routine 04/10/2024 11:49 AM EST Polycythemia, secondary Atherosclerosis of [place] coronary artery, unspecified whether angina present, unspecified whether [place] or transplanted heart Asthmatic bronchitis without complication, unspecified asthma severity, unspecified whether persistent Pure hypercholesterolemia Monoclonal paraproteinemia from Last 3 Months or Most Recently Relevant to Health Maintenance Results * (ABNORMAL) Lipid panel (04/10/2024 11:49 AM EST) HDL 64 mg/dL [facility] Comment: Interpretation <40 mg/dL: Low HDL cholesterol (major risk factor for CHD) Greater than or equal to 60 mg/dL: High HDL cholesterol ( negative risk factor for CHD) HDL - cholesterol is affected by a number of factors, e.g. smoking, excerise, hormones, sex and age. CHOLESTEROL 150 0 - 240 mg/dL [facility] TRIGLYCERIDES 105 30 - 160 mg/dL [facility] LDL 65 50 - 129 mg/dL [facility] Comment: LDL levels in terms of risk for coronary heart disease: <100 mg/dL: Optimal 100-129 mg/dL: Near or above optimal 130-159 mg/dL: Borderline high 160-189 mg/dL: High >190 mg/dL: Very High CARDIAC RISK RATIO 2.3(L) 3.4 - 5.0 [facility] Blood 04/10/2024 11:4 9 AM EST 04/10/2024 11:55 AM EST Greyson Rodriguez MD LAB BLOOD ORDERABLES Final Result [facility] [address] [place], [place] [phone] from Last 3 Months or Most Recently Relevant to Health Maintenance Insurance MEDICARE PART A & B [place] BL[place] REPLACEMENT [facility] S[facility] NET FULL [facility] MEDICARE PART A & [place] BL[place] RE[place]AC[place] HEALTH [facility]AFETY [facility] MED[facility] PPO BLUE REPLACEMENT HEALTH SAFETY NET FULL MEDICARE PART A & [place] [id number] [place] BL[place] RE[place]ACEMENT [facility] S[facility] NET FULL MEDICARE PART A & [place] BL[place] RE[place] [facility]ALTH [facility]AFETY NET [facility] & B [facility] MEDICARE PPO BLUE REPLACEMENT Member Subscriber Plan / Payer (Ef fective 2012-Present) Name:Vipul Mooney Relation to Subscriber:Self Name:VIPUL MOONEY Payer ID:[id number] (NAIC) Type:Medicare Address: [facility] [id number] FULL MEDICARE PART A & B [facility] MEDICARE PPO BLUE REPLACEMENT HEALTH SAFETY NET FULL Member Subscriber Plan / Payer (Ef fective 2018-Present) Name:Vipul Mooney Relation to Subscriber:Self Name:VIPUL MOONEY Payer ID:Not on file Group ID:Not on file Type:Medicaid Address: [address] MEDICARE PART A & B [place] BLUE REPLACEMENT HEALTH SAFETY NET FULL [facility] & [place] REPLACEMENT HEALTH SAFETY NET FULL [facility] Q[facility] Care Teams Air Table Operator Relationship Specialty Start Date End Date Greyson Rodriguez MD [address] [place] [address] [email or web address] PCP - General Internal Medicine 12/23/23 Byron Galindo DO [address] [place] [address] [place] [address] [email or web address] Historical LMR Provider 03/20/17 Sarthak Andersen DO [address] [place] [address] [email or web address] Primary Oncologist Medical Oncology 03/20/17 Sarina Avila MD [address] [place] [address] [email or web address] Historical LMR Provider 03/20/17 Андрей Boyd MD [address] [place] [address], [address] [place] [address] [email or web address] Urology 09/27/17 Vipul Vickers MD [address] [place] [address], [address] [place] [address] Neurology 09/27/17 Sissy Jade PA-C [address] [place] [address] Physician Cattle Sorter Hematology 04/18/21 Additional Source Comments The information contained in this document represents components of the legal health record. It is not the complete legal health record.[facility]
--- OUTSIDE RECORDS SUMMARY | 2025-02-16 11:03 | XMS_ITS | Encounter Summary ---
Author Organization [employer] Address [address] [place] [address] 7 [place] [address] Care Team Providers Care Court Collections Officer Name Role Phone Jany Denton BILLING AND INSURANCE COORDINATOR Primary Care Provider [phone] Saman Mclean DMD Unavailable Unavailable Jany Denton BILLING AND INSURANCE COORDINATOR Unavailable [phone] Jhony Carmichael [facility] Primary Care Provider Unavaila Blanka Ordonez [facility] Primary Care Provider + [phone] Attila Rene Unassigned Primary Care Provider U Greyson Fermin MD Primary Care Provider + [phone] Encounter Details Date Type Department Care Team (Latest Contact Info) Description 07/03/2019 Abstract [facility] CONVERSIONS Dental, Provider, DDS Social History Tobacco Use Types Packs/Day Years [...] Description 06/12/2025 12:45 PM EST Office Visit [facility] [address] [place] [phone] Alistair Miramontes [facility] [address] [place] [address] 07/17/2025 10:30 AM EST Office Visit [facility] [address] [place] [address] Yanelis Ariza LLD [address] [place] [address] documented as of this encounter Visit Diagnoses Not on filedocumented in this encounter Care Teams Court Collections Officer Relationship Specialty Start Date End Date Jany Denton FNP [address] [place], [place] [phone] PCP - General Family Medicine 03/27/22 08/28/22 Jhony Carmichael FNP [address] [place], [place] [phone] PCP - General Family Medicine 12/31/22 03/08/23 Blanka Grullon FNP [address] [place] [address] PCP - General Family Medicine 03/09/23 04/08/23 Attila Rene Unassigned PCP - General Family Medicine 04/09/23 05/03/23 Greyson Rodriguez MD [address] [place] [address] PCP - General Internal Medicine 05/04/23 Saman Mclean DMD [address] [place] [address] Dentist Dental Cia Agent 03/27/22 Jany Denton FNP [address] [place] [address] Family Medicine 03/27/22 10/21/22 documented as of this encounter
--- OUTSIDE RECORDS SUMMARY | 2025-02-16 11:03 | XMS_ITS | Encounter Summary ---
Author Organization [employer] Address [address] [place] [address] 7 [place] [address] Care Team Providers Care Ship Steward Name Role Phone LaynixonSaman mccormack DMD Unavailable Unavailable Greyson Rodriguez MD Primary Care Provider + [phone] Reason for Visit * Reason Onset Date Comments Med Refill 11/03/2023 Encounter Details Date Type Department Care Team ([facility] st Contact Info) Description 11/03/2023 Refill [facility] [address] [place] [phone] Blanka Grullon, [facility] [address] [place] [address] Social History Tobacco Use Types Packs/Day Years [...] the past 12 months, has t he [employer], gas, oil or water company threatened to [...] Description 06/12/2025 12:45 PM EST Office Visit [facility] [address] [place] [phone] Alistair Miramontes, [facility] [address] [place] [address] 07/17/2025 10:30 AM EST Office Visit [facility] [address] [place] [phone] Yanelis Ariza LLD [address] [place] [phone] documented as of this encounter Visit Diagnoses Not on filedocumented in this encounter Care Teams Ship Steward Relationship Specialty Start Date End Date Greyson Rodriguez MD [address] [place] [address] PCP - General Internal Medicine 05/04/23 Saman Mclean DMD Dentist Dental Clinical Application Manager 03/27/22 documented as of this encounter
--- OUTSIDE RECORDS SUMMARY | 2025-02-16 11:03 | XMS_ITS | Encounter Summary ---
Author Organization [facility] Address [address] [place] [address] Phone Care Team Providers Care Mica Builder Name Role Phone Byron Galindo DO Unavailable Sarthak Andersen DO Unavailable [phone] Richelle Jaeger CNP Unavailable Andressa Villegas MD Unavailable Sarina Avila MD Unavailable [phone] Baltazar Gill MD Unavailable Trish Meza CONTROL OFFICER Unavailable [phone] Lj Mendoza DPM Unavailable Unavailable Renetta Rodriguez CONTROL OFFICER Unavailable Evy Lockett MD Unavailable [phone] Byron Galindo DO Primary Care Provider [phone] Андрей Boyd MD Unavailable [phone] Ck Vickers MD Unavailable Bennett Regalado DO Primary Care Provider Jany Denton Primary Care Provider Sissy Jade PA-C Unavailable [phone] Greyson Rodriguez MD Primary Care Provider [phone] Encounter Details Date Type Department Care Team (Latest Contact Info) Description 08/06/2017 Transcribe Orders [facility] [address] [place] [address] Ck Vickers MD [address] [place] [address], [address] [place] [address] [email or web address] Memory loss (Primary Dx) Social History Tobacco Use Types [...] EST Office Visit [facility] at [address] [address] Sarthak Andersen DO 30 [place] [address] [email or web address] documented as of this encounter Results * Creatinine/eGFR (08/06/2017 9:20 AM EST) CREATININE 1.00 0.5 - 1.5 mg/dL [facility] EGFR 76 >59 mL/min/1.7 3m2 [facility] Comment:If patient is black, multiply result by 1.159. The eGFR calculation has changed from the MDRD equation to the CKD-EPI equation as of August 03, 2017. Blood 08/06/2017 9:20 AM EST 08/06/2017 9:31 AM EST us Ck Vickers MD LAB BLOOD ORDERABLES Final R esult [address] [address] * BUN (08/06/2017 9:20 AM EST) BUN 10 6 - 19 mg/dL [facility] Blood 08/06/2017 9:20 AM EST 08/06/2017 9:31 AM EST us Ck Vickers MD LAB BLOOD ORDERABLES Final R esult [facility] [address] [place] [address] documented in this encounter Visit Diagnoses Diagnosis Memory loss- Primary documented in this encounter Care Teams Mica Builder Relationship Specialty Start Date End Date Byron Glaindo DO [address] [place] [address] [email or web address] PCP - General 03/22/17 03/29/18 Bennett Regalado DO [address] [address] [email or web address] PCP - General Family Medicine 03/30/18 10/20/20 Jany Denton FNP [address] [address] PCP - General 10/21/20 12/22/23 Greyson Rodriguez MD [address] [place] [address] [email or web address] PCP - General Internal Medicine 12/23/23 Byron Galindo DO [address] [place] [address] Historical LMR Provider 03/20/17 Sarthak Andersen DO [address] [place] [address] [email or web address] Primary Oncologist Medical Oncology 03/20/17 Richelle Jaeger, CONSUELO [address] [place] [address] [email or web address] Historical LMR Provider 03/20/17 2 Andressa Villegas MD [address] [address] [email or web address] Historical LMR Provider 03/20/17 06/07/21 Sarina Avila MD 31 [place] [address] [email or web address] Historical LMR Provider 03/20/17 Baltazar Gill MD [address] [address] [email or web address] Historical LMR Provider 03/20/17 06/07/21 Trish Meza, TORRES [address] [place] [address] Historical LMR Provider 03/20/17 2 Lj Mendoza DPM 22 [place] [address] Historical LMR Provider 03/20/1706/07/21 Renetta Rodriguez, CONTROL OFFICER [address] [place] [address] Historical LMR Provider 03/20/17 2 Evy Lockett MD [address] [place] [address] Historical LMR Provider 03/20/17 06/07/21 Андрей Boyd MD [address] [place] [address], [address] [place] [address] Urology 09/27/17 Ck Vickers MD [address] [place] [address], [address] [place] [address] Neurology 09/27/17 Sissy Jade PA-C [address] [place] [address] Physician Prawn Trawler Hand Hematology 04/18/21 documented as of this encounter Additional Source Comments The information contained in this document represents components of the legal health record. It is not the complete legal health record.[facility]
--- OUTSIDE RECORDS SUMMARY | 2025-02-16 11:03 | XMS_ITS | Encounter Summary ---
Author Organization [facility] Address [address] [place] [address] Phone Care Team Providers Care Technical Sales Specialist Name Role Phone Byron Galindo DO Unavailable Sarthak Andersen DO Unavailable [phone] Richelle Jaeger CNP Unavailable Andressa Villegas MD Unavailable [phone] Sarina Avila MD Unavailable [phone] Baltazar Gill MD Unavailable Trish Meza NETWORK ENGINEER Unavailable [phone] Lj Mendoza DPM Unavailable Unavailable Renetta Rodriguez NETWORK ENGINEER Unavailable [phone] Evy Lockett MD Unavailable Byron Galindo DO Primary Care Provider [phone] Андрей Boyd MD Unavailable [phone] Ck Vickers MD Unavailable [phone] Bennett Regalado DO Primary Care Provider Jany Denton Primary Care Provider Sissy Jade PA-C Unavailable [phone] Greyson Rodriguez MD Primary Care Provider [phone] Encounter Details Date Type Department Care Team (Late st Contact Info) Description 07/02/2017 Transcribe Orders [facility] 29 [place] [address] Byron Galindo DO 29 [place] [address] [email or web address] Social History Tobacco Use Types Packs/Day Years [...] Description 04/13/2025 3:00 PM EST Office Visit [facility] at [address] [address] Sarthak Andersen DO 30 [place] [address] [email or web address] documented as of this encounter Visit Diagnoses Not on filedocumented in this encounter Care Teams Technical Sales Specialist Relationship Specialty Start Date End Date Byron Galindo DO 29 [place] [address] [email or web address] PCP - General 03/22/17 03/29/18 Bennett Regalado DO [address] [address] [email or web address] PCP - General Family Medicine 03/30/18 10/20/20 Jany Denton FNP [address] [address] PCP - General 10/21/20 12/22/23 Greyson Rodriguez MD 30 [place] [address] [email or web address] PCP - General Internal Medicine 12/23/23 Byron Galindo DO 29 [place] [address] [email or web address] Historical LMR Provider 03/20/17 Sarthak Andersen DO 30 [place] [address] [email or web address] Primary Oncologist Medical Oncology 03/20/17 Richelle Jaeger CNP 29 [place] [address] [email or web address] Historical LMR Provider 03/20/17 2 Andressa Villegas MD [address] [address] [email or web address] Historical LMR Provider 03/20/17 06/07/21 Sarina Avila MD [address] [place] [address] [email or web address] Historical LMR Provider 03/20/17 Baltazar Gill MD [address] [address] [email or web address] Historical LMR Provider 03/20/17 06/07/21 Trish Meza, NETWORK ENGINEER [address] [place] [address] Historical LMR Provider 03/20/17 2 Lj Mendoza DPM [address] [place] [address] Historical LMR Provider 03/20/1706/07/21 Renetta Rodriguez, NETWORK ENGINEER [address] [place] [address] Historical LMR Provider 03/20/17 2 Evy Lockett MD [address] [place] [address] Historical LMR Provider 03/20/17 06/07/21 Андрей Boyd MD [address] [place] [address], [address] [place] [address] Urology 09/27/17 Ck Vickers MD [address] [place] [address], [address] [place] [address] Neurology 09/27/17 Sissy Jade PA-C [address] [place] [address] Physician Poiser Balance Hematology 04/18/21 documented as of this encounter Additional Source Comments The information contained in this document represents components of the legal health record. It is not the complete legal health record.[facility]
--- OUTSIDE RECORDS SUMMARY | 2025-02-16 11:03 | XMS_ITS | Encounter Summary ---
Author Organization [facility] Address [address] [place] [address] Phone Care Team Providers Care Permastone Mechanic Name Role Phone Byron Galindo DO Unavailable Sarthak Andersen DO Unavailable Richelle Jaeger CNP Unavailable Andressa Villegas MD Unavailable [phone] Sarina Avila MD Unavailable [phone] Baltazar Gill MD Unavailable [phone] Trish Meza FORM TAMPER Unavailable [phone] Lj Mendoza DPM Unavailable Unavailable Renetta Rodriguez FORM TAMPER Unavailable [phone] Evy Lockett MD Unavailable Андрей Boyd MD Unavailable [phone] Ck Vickers MD Unavailable Bennett Regalado DO Primary Care Provider Jany Denton Primary Care Provider [phone] Sissy Jade PA-C Unavailable [phone] Greyson Rodriguez MD Primary Care Provider [phone] Encounter Details Date Type Department Care Team (Late st Contact Info) Description 10/08/2020 Ancillary Orders [facility],Outside Imaging 30 [place] [address] System, Provider Not In, [place] [address] Social History Tobacco Use Types Packs/Day Years [...] Description 04/13/2025 3:00 PM EST Office Visit [facility] at [address] [address] Sarthak Andersen DO [address] [place] [address] [email or web address] documented as of this encounter Results * XR Pelvis Outside (No Interpretation) (10/01/2020 12:00 AM EDT) Narrative SYSTEMGENERATED, DOCUMENTATION - 10/08/2020 4:43 PM EDT This study is for PACS storage only and not for interpretation. us Provider Not In System PhD IMG OUTSIDE IMAGING W /OUT INTERPRETATION Final Result * XR Pelvis Outside (No Interpretation) (02/23/2019 12:00 AM EDT) Narrative SYSTEMGENERATED, DOCUMENTATION - 10/08/2020 4:43 PM EDT This study is for PACS storage only and not for interpretation. us Provider Not In System PhD IMG OUTSIDE IMAGING W /OUT INTERPRETATION Final Result documented in this encounter Visit Diagnoses Not on filedocumented in this encounter Care Teams Permastone Mechanic Relationship Specialty Start Date End Date Bennett Regalado DO [address] [address] [email or web address] PCP - General Family Medicine 03/30/18 10/20/20 Jany Denton FNP [address] [address] PCP - General 10/21/20 12/22/23 Greyson Rodriguez MD 30 [place] [address] PCP - General Internal Medicine 12/23/23 Byron Galindo DO 29 [place] [address] [email or web address] Historical LMR Provider 03/20/17 Sarthak Andersen DO 30 [place] [address] [email or web address] U Primary Oncologist Medical Oncology 03/20/17 Richelle Jaeger, CONSUELO [address] [place] [address] [email or web address] Historical LMR Provider 03/20/17 2 Andressa Villegas MD [address] [address] [email or web address] Historical LMR Provider 03/20/17 06/07/21 Sarina Avila MD 31 [place] [address] [email or web address] Historical LMR Provider 03/20/17 Baltazar Gill MD [address] [address] Historical LMR Provider 03/20/17 06/07/21 Trish Meza NP [address] [place] [address] Historical LMR Provider 03/20/17 2 Lj Mendoza DPM [address] [place] [address] Historical LMR Provider 03/20/1706/07/21 Renetta Rodriguez, TORRES [address] [place] [address] Historical LMR Provider 03/20/17 2 Evy Lockett MD [address] [place] [address] [email or web address] Historical LMR Provider 03/20/17 06/07/21 Андрей Boyd MD [address] [place] [address], [address] [place] [address] Urology 09/27/17 Ck Vickers MD [address] [place] [address], [address] [place] [address] Neurology 09/27/17 Sissy Jade PA-C [address] [place] [address] Physician Alliance Director Hematology 04/18/21 documented as of this encounter Additional Source Comments The information contained in this document represents components of the legal health record. It is not the complete legal health record.[facility]
--- OUTSIDE RECORDS SUMMARY | 2025-02-16 11:03 | XMS_ITS | Encounter Summary ---
Author Organization [facility] Address [address] [place] [address] Phone Care Team Providers Care Fishing Tool Technician Oil Well Name Role Phone Byron Galindo DO Unavailable Sarthak Andersen DO Unavailable [phone] Richelle Jaeger CNP Unavailable [phone] Andressa Villegas MD Unavailable [phone] Sarina Avila MD Unavailable Baltazar Gill MD Unavailable Trish Meza PARTNERSHIP MANAGER Unavailable Lj Mendoza DPM Unavailable Unavailable Renetta Rodriguez PARTNERSHIP MANAGER Unavailable Evy Lockett MD Unavailable Byron Galindo DO Primary Care Provider [phone] Андрей Boyd MD Unavailable [phone] Ck Vickers MD Unavailable [phone] Bennett Regalado DO Primary Care Provider Jany Denton Primary Care Provider Sissy Jade PA-C Unavailable [phone] Greyson Rodriguez MD Primary Care Provider [phone] Encounter Details Date Type Department Care Team (Late st Contact Info) Description 06/03/2017 Procedure Pass [facility] Interventional [facility]iology [address] [place] [address] Social History Tobacco Use Types Packs/Day Years [...] Description 04/13/2025 3:00 PM EST Office Visit [facility] 30 [place] [address] Sarthak Andersen DO 30 [place] [address] [email or web address] documented as of this encounter Visit Diagnoses Not on filedocumented in this encounter Care Teams Fishing Tool Technician Oil Well Relationship Specialty Start Date End Date Byron Galindo DO [address] [place] [address] [place] [address] [email or web address] PCP - General 03/22/17 03/29/18 Bennett Regalado DO [address] [address] [email or web address] PCP - General Family Medicine 03/30/18 10/20/20 Jany Denton FNP [address] [address] PCP - General 10/21/20 12/22/23 Greyson Rodriguez MD [address] [place] [address] PCP - General Internal Medicine 12/23/23 Byron Galindo DO 29 [place] [address] [email or web address] Historical LMR Provider 03/20/17 Sarthak Andersen DO 30 [place] [address] [email or web address] U Primary Oncologist Medical Oncology 03/20/17 Richelle Jaeger, CONSUELO 29 [place] [address] [email or web address] Historical LMR Provider 03/20/17 2 Andressa Villegas MD [address] [place] [address] [email or web address] Historical LMR Provider 03/20/17 06/07/21 Sarina Avila MD 31 [place] [address] [email or web address] Historical LMR Provider 03/20/17 Baltazar Gill MD [address] [address] [email or web address] Historical LMR Provider 03/20/17 06/07/21 Trish Meza, PARTNERSHIP MANAGER [address] [place] [address] Historical LMR Provider 03/20/17 2 Lj Mendoza DPM [address] [place] [address] Historical LMR Provider 03/20/1706/07/21 Renetta Rodriguez NP [address] [place] [address] Historical LMR Provider 03/20/17 2 Evy Lockett MD [address] [place] [address] Historical LMR Provider 03/20/17 06/07/21 Андрей Boyd MD [address] [place] [address], [address] [place] [address] Urology 09/27/17 Ck Vickers MD [address] [place] [address], [address] [place] [address] Neurology 09/27/17 Sissy Jade PA-C [address] [place] [address] Physician Boiler Washer Hematology 04/18/21 documented as of this encounter Additional Source Comments The information contained in this document represents components of the legal health record. It is not the complete legal health record.[facility]
--- OUTSIDE RECORDS SUMMARY | 2025-02-16 11:03 | XMS_ITS | Encounter Summary ---
Author Organization [facility] Address [address] [place] [address] Phone Care Team Providers Care Scale Manager Name Role Phone Byron Galindo DO Unavailable Sarthak Andersen DO Unavailable [phone] Richelle Jaeger CNP Unavailable Andressa Villegas MD Unavailable Sarina Avila MD Unavailable Baltazar Gill MD Unavailable [phone] Trish Meza FUNDRAISING ASSISTANT Unavailable [phone] Lj Mendoza DPM Unavailable Unavailable Renetta Rodriguez FUNDRAISING ASSISTANT Unavailable [phone] Evy Lockett MD Unavailable Byron Galindo DO Primary Care Provider [phone] Андрей Boyd MD Unavailable [phone] Ck Vickers MD Unavailable Bennett Regalado DO Primary Care Provider Jany Denton Primary Care Provider [phone] Sissy Jade PA-C Unavailable [phone] Greyson Rodriguez MD Primary Care Provider [phone] Reason for Referral * MRI/CAT Scan - Closed Specialty Diagnoses / Procedures Referred By Contac t Referred To Contact Radiology Diagnoses Memory loss History of throat cancer Procedures MRI Brain Ck Vickers MD Phone: tel: fax: [email or web address] Referral ID Status Reason Start Date Expiration Date Visits Re quested Visits Authorized [id number] Closed 07/29/2017 09/27/2017 1 1 Encounter Details Date Type Department Care Team (Late Contact Info) Description 07/29/2017 Ancillary Orders Virtual Department [address] [place] [address] Ck Vickers MD [address] [place] [address], [address] [place] [address] [email or web address] Memory loss; History of throat cancer Social History Tobacco Use Types Packs/Day Years [...] Description 04/13/2025 3:00 PM EST Office Visit [facility] at [address] [address] Sarthak Andersen DO [address] [place] [address] [email or web address] documented as of this encounter Results * MRI BRAIN WITH AND WITHOUT CONTRAST (08/12/2017 10:39 AM EDT) Anatomical Region Laterality Modality Head Magnetic Resonan ce 08/12/2017 10:4 9 AM EDT Impressions 08/12/2017 11:07 AM EDT No significant intracranial abnormalities. Mastoid reaction on left. Suggestion of sinusitis involving the maxillary sinuses and possibly ethmoid air cells. POS - [id number] Narrative 08/12/2017 11:07 AM EDT HISTORY: Headaches, ataxia, diplopia, memory loss and mental status changes, fall two weeks ago. COMPARISON: None. TECHNIQUE: Exam performed on a 1.5 Martine high-field MRI scanner. Axial T1, T2, T2*, T2 FLAIR and diffusion-weighted with ADC map, sagittal T1, followed by post-gadolinium axial and sagittal T1 sequence. FINDINGS: No evidence of intracranial hemorrhage, hematomas or masses. No evidence of acute infarction. There are a few scattered small T2/T2 FLAIR hyperintensities within the deep and periventricular white matter bilaterally consistent with minimal chronic small vessel ischemia. No enhancing white matter signal abnormalities. The ventricles are normal in size and configuration. Basal cisterns are patent. The left normal flow-voids at the base of the skull. Fluid within multiple mastoid air cells on the left. Small-moderate sized retention cyst in the inferior aspect of the right maxillary sinus. Small retention cyst in left maxillary sinus. Mild mucosal thickening in bilateral ethmoid air cells. Procedure Note García Gray MD - 08/12/2017 HISTORY: Headaches, ataxia, diplopia, memory loss and mental statuschanges, fall two weeks ago. COMPARISON: None. TECHNIQUE: Exam performed on a 1.5 Martine high-field MRI scanner. AxialT1, T2, T2*, T2 FLAIR and diffusion-weighted with ADC map, sagittal T1,followed by post- gadolinium axial and sagittal T1 sequence. FINDINGS: No evidence of intracranial hemorrhage, hematomas or masses. No evidenceof acute infarction. There are a few scattered small T2/T2 FLAIR hyperintensities within thedeep and periventricular white matter bilaterally consistent with minimalchronic small vessel ischemia. No enhancing white matter signalabnormalities. The ventricles are normal in size and configuration. Basal cisterns arepatent. The left normal flow-voids at the base of the skull. Fluid within multiple mastoid air cells on the left. Small-moderate sizedretention cyst in the inferior aspect of the right maxillary sinus. Smallretention cyst in left maxillary sinus. Mild mucosal thickening inbilateral ethmoid air cells. IMPRESSION: No significant intracranial abnormalities. Mastoid reaction on left.Suggestion of sinusitis involving the maxillary sinuses and possiblyethmoid air cells. POS - [id number] Ck Vickers MD IMG MR HEAD/NECK Final Resul t documented in this encounter Visit Diagnoses Diagnosis Memory loss History of throat cancer Memory loss History of throat cancer documented in this encounter Care Teams Scale Manager Relationship Specialty Start Date End Date Byron Galindo DO 29 [place] [address] PCP - General 03/22/17 03/29/18 Bennett Regalado DO [address] [address] [email or web address] PCP - General Family Medicine 03/30/18 10/20/20 Jany Denton FNP [address] [address] PCP - General 10/21/20 12/22/23 Greyson Rodriguez MD [address] [place] [address] PCP - General Internal Medicine 12/23/23 Byron Galindo DO 29 [place] [address] Historical LMR Provider 03/20/17 Sarthak Andersen DO 30 [place] [address] [email or web address] U Primary Oncologist Medical Oncology 03/20/17 Richelle Jaeger, CONSUELO [address] [place] [address] [email or web address] Historical LMR Provider 03/20/17 2 Andressa Villegas MD [address] [address] [email or web address] Historical LMR Provider 03/20/17 06/07/21 Sarina Avila MD 31 [place] [address] [email or web address] Historical LMR Provider 03/20/17 Baltazar Gill MD [address] [address] [email or web address] Historical LMR Provider 03/20/17 06/07/21 Trish Meza, TORRES [address] [place] [address] Historical LMR Provider 03/20/17 2 Lj Mendoza DPM 22 [place] [address] Historical LMR Provider 03/20/1706/07/21 Renetta Rodriguez, TORRES [address] [place] [address] Historical LMR Provider 03/20/17 2 Evy Lockett MD 30 [place] [address] Historical LMR Provider 03/20/17 06/07/21 Андрей Boyd MD [address] [place] [address], [address] [place] [address] Urology 09/27/17 Ck Vickers MD [address] [place] [address], [address] [place] [address] Neurology 09/27/17 Sissy Jade PA-C [address] [place] [address] Physician Stock Chaser Hematology 04/18/21 documented as of this encounter Additional Source Comments The information contained in this document represents components of the legal health record. It is not the complete legal health record.[facility]
--- OUTSIDE RECORDS SUMMARY | 2025-02-16 11:03 | XMS_ITS | Encounter Summary ---
Author Organization [employer] Address [address] [facility] 7t [place] [address] Care Team Providers Care Landscape And Yardwork Laborer Name Role Phone CaridadKarylang DMD Unavailable Unavailable Greyson Rodriguez MD Primary Care Provider + [phone] Encounter Details Date Type Department Care Team (Late st Contact Info) Description 02/04/2024 Orders Only [facility] [address] [place] [address] Provider, Not In System Social [...] Description 06/12/2025 12:45 PM EST Office Visit [facility] [address] [place] [phone] Alistair Miramontes, [address] [address] 07/17/2025 10:30 AM EST Office Visit [facility] [address] [place] [phone] Yanelis Ariza LLD [address] [place] [address] documented as of this encounter Procedures Procedure Name Priority Date/Time Associated Diagnosis Comments TRANSTHORACIC ECHO (TTE) COMPLETE Routine 01/26/2024 8:58 AM EDT documented in this encounter Results * Transthoracic echo (TTE) complete (01/26/2024 8:58 AM EDT) us Not In System Provider CV ECHO PROCEDURES Edited Result - Final documented in this encounter Visit Diagnoses Not on filedocumented in this encounter Care Teams Landscape And Yardwork Laborer Relationship Specialty Start Date End Date Greyson Rodriguez MD [address] [place] [address] PCP - General Internal Medicine 05/04/23 Saman Mclean DMD Dentist Dental Manager Process 03/27/22 documented as of this encounter
--- OUTSIDE RECORDS SUMMARY | 2025-02-16 11:03 | XMS_ITS | Encounter Summary ---
Author Organization [employer] Address [address] [place] [address] 7 [place] [address] Care Team Providers Care Gameplay Programmer Name Role Phone Jany Denton GAGE DESIGNER Primary Care Provider [phone] Saman Mclean DMD Unavailable Unavailable Jany Denton GAGE DESIGNER Unavailable [phone] Jhony Carmichael [facility] Primary Care Provider Unavaila Blanka Ordonez [facility] Primary Care Provider + [phone] Attila Rene Unassigned Primary Care Provider U Greyson Fermin MD Primary Care Provider [phone] Encounter Details Date Type Department Care Team (Latest Contact Info) Description 01/05/2020 Abstract [facility] CONVERSIONS Dental, Provider, DDS Social History Tobacco [...] 12:45 PM EST Office Visit [facility] [address] [place] [phone] Alistair Miramontes [facility] [address] [place] [address] 07/17/2025 10:30 AM EST Office Visit [facility] [address] [place] [address] Yanelis Ariza LLD [address] [place] [address] documented as of this encounter Visit Diagnoses Not on filedocumented in this encounter Care Teams Gameplay Programmer Relationship Specialty Start Date End Date Jany Denton FNP [address] [place], [place] [phone] PCP - General Family Medicine 03/27/22 08/28/22 Jhony Carmichael FNP [address] [place], [place] [address] PCP - General Family Medicine 12/31/22 03/08/23 Blanka Grullon FNP [address] [place] [address] PCP - General Family Medicine 03/09/23 04/08/23 Attila Rene Unassigned PCP - General Family Medicine 04/09/23 05/03/23 Greyson Rodriguez MD [address] [place] [address] PCP - General Internal Medicine 05/04/23 Saman Mclean DMD [address] [place] [address] Dentist Dental Joint Finisher 03/27/22 Jany Denton FNP [address] [place] [address] Family Medicine 03/27/22 10/21/22 documented as of this encounter
--- OUTSIDE RECORDS SUMMARY | 2025-02-16 11:03 | XMS_ITS | Encounter Summary ---
Author Organization [facility] Address [address] [place] [address] Phone Care Team Providers Care Draw Frame Runner Name Role Phone Byron Galindo DO Unavailable Sarthak Andersen DO Unavailable [phone] Richelle Jaeger CNP Unavailable Andressa Villegas MD Unavailable Sarina Avila MD Unavailable [phone] Baltazar Gill MD Unavailable [phone] Trish Meza LEAD ARCHITECT Unavailable Lj Mendoza DPM Unavailable Unavailable Renetta Rodriguez LEAD ARCHITECT Unavailable [phone] Evy Lockett MD Unavailable Byron Galindo DO Primary Care Provider [phone] Андрей Boyd MD Unavailable [phone] Ck Vickers MD Unavailable Bennett Regalado DO Primary Care Provider Jany Denton Primary Care Provider [phone] Sissy Jade PA-C Unavailable [phone] Greyson Rodriguez MD Primary Care Provider [phone] Encounter Details Date Type Department Care Team (Late st Contact Info) Description 07/29/2017 Procedure [facility], [facility] - [address] [place] [address] Social History Tobacco Use Types Packs/Day Years Used Date Smoking Tobacco: Former Cigarettes Q uit: 07/2016 Smokeless Tobacco: Former Sex and Gender Information Value Date Recorded Sex Assigned at Not on file Legal Sex Male 10:06 PM EDT Gender Identity Not on file Sexual Orientation Not on file documented as of this encounter Last Filed Vital Signs Vital Sign Reading Time Taken Comments Blood Pressure - - Pulse - - Temperature - - Respiratory Rate - - Oxygen Saturation - - Inhaled Oxygen Concentration - - Weight 80.7 kg (178 lb) 07/30/2017 6:35 PM EST Height 175.3 cm (5' 9 ) 07/30/2017 6:35 PM EST Body Mass Index 26.29 07/30/2017 6:35 PM EST documented in this encounter Plan of Treatment Upcoming Encounters Date Type Department Care Team (Late Contact Info) Description 04/13/2025 3:00 PM EST Office Visit [facility] at [address] [address] Sarthak Andersen DO [address] [place] [address] [email or web address] documented as of this encounter Visit Diagnoses Not on filedocumented in this encounter Care Teams Draw Frame Runner Relationship Specialty Start Date End Date Byron Galindo DO [address] [place] [address] [place] [address] PCP - General 03/22/17 03/29/18 Bennett Regalado DO [address] [facility] [address] [address] [email or web address] PCP - General Family Medicine 03/30/18 10/20/20 Jany Denton FNP [address] [address] PCP - General 10/21/20 12/22/23 Greyson Rodriguez MD 30 [place] [address] PCP - General Internal Medicine 12/23/23 Byron Galindo DO 29 [place] [address] Historical LMR Provider 03/20/17 Sarthak Andersen DO 30 [place] [address] [email or web address] Primary Oncologist Medical Oncology 03/20/17 Richelle Jaeger, CONSUELO 29 [place] [address] [email or web address] Historical LMR Provider 03/20/17 2 Andressa Villegas MD [address] [address] [email or web address] Historical LMR Provider 03/20/17 06/07/21 Sarina Avila MD 31 [place] [address] [email or web address] Historical LMR Provider 03/20/17 Baltazar Gill MD [address] [address] Historical LMR Provider 03/20/17 06/07/21 Trish Meza NP [address] [place] [address] Historical LMR Provider 03/20/17 2 Lj Mendoza DPM [address] [place] [address] Historical LMR Provider 03/20/1706/07/21 Renetta Rodriguez NP [address] [place] [address] Historical LMR Provider 03/20/17 2 Evy Lockett MD [address] [place] [address] Historical LMR Provider 03/20/17 06/07/21 Андрей Boyd MD [address] [place] [address], [address] [place] [address] Urology 09/27/17 Ck Vickers MD [address] [place] [address], [address] [place] [address] Neurology 09/27/17 Sissy Jade PA-C [address] [place] [address] Physician Wheel Adjuster Hematology 04/18/21 documented as of this encounter Additional Source Comments The information contained in this document represents components of the legal health record. It is not the complete legal health record.[facility]
--- OUTSIDE RECORDS SUMMARY | 2025-02-16 11:03 | XMS_ITS | Encounter Summary ---
Author Organization [facility] Address [address] [place] [address] Phone Care Team Providers Care Hardness Tester Name Role Phone Byron Galindo DO Unavailable Sarthak Andersen DO Unavailable [phone] Richelle Jaeger CNP Unavailable Andressa Villegas MD Unavailable Sarina Avila MD Unavailable Baltazar Gill MD Unavailable Trish Meza CHEMIST WATER PURIFICATION Unavailable Lj Mendoza DPM Unavailable Unavailable Renetta Rodriguez CHEMIST WATER PURIFICATION Unavailable [phone] Evy Lockett MD Unavailable Byron Galindo DO Primary Care Provider [phone] Андрей Boyd MD Unavailable [phone] Ck Vickers MD Unavailable Bennett Regalado DO Primary Care Provider Jany Denton Primary Care Provider Sissy Jade PA-C Unavailable [phone] Greyson Rodriguez MD Primary Care Provider [phone] Encounter Details Date Type Department Care Team (Latest Contact Info) Description 07/30/2017 Transcribe Orders [facility] [address] [place] [address] Ck Vickers MD [address] [place] [address], [address] [place] [address] [email or web address] Neuropathy (Primary Dx) Social History [...] Description 04/13/2025 3:00 PM EST Office Visit [facility] at [address] [address] Sarthak Andersen DO [address] [place] [address] [email or web address] documented as of this encounter Results * (ABNORMAL) Monoclonal protein study, serum (07/30/2017 10:06 AM EST) TOTAL PROTEIN 7.0 6.3 - 7.9 g/dL [facility] DPT OF LAB MED AND PAT+ ALBUMIN 3.4 3.4 - 4.7 g/dL [facility] DPT OF LAB MED AND PAT+ ALPHA-1 GLOBULIN 0.3 0.1 - 0.3 g/dL [facility] DPT OF LAB MED AND PAT+ ALPHA-2 GLOBULIN 1.1(H) 0.6 - 1.0 g/dL [facility] DPT OF LAB MED AND PAT+ BETA-GLOBULIN 1.6(H) 0.7 - 1.2 g/dL [facility] DPT OF LAB MED AND PAT+ GAMMA-GLOBULIN 0.7 0.6 - 1.6 g/dL [facility] DPT OF LAB MED AND PAT+ A/G RATIO 0.94 [facility] MED AND PAT+ M SPIKE Test component not applicable or not reported. not reported [facility] DPT OF LAB MED AND PAT+ M SPIKE Test component not applicable or not reported. not reported [facility] DPT OF LAB MED AND PAT+ IMPRESSION SEE NOTE [facility] DPT OF LAB MED AND PAT+ Comment: (NOTE) No apparent monoclonal protein on serum electrophoresis. See Immunofixation. 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 Suggest repeat testing in 6-12 months if clinically indicated. Suggest quantitative immunoglobulin level to assist in following monoclonal protein. Blood 07/30/2017 10:0 6 AM EST 07/30/2017 10:49 AM EST Ck Vickers MD LAB BLOOD ORDERABLES Final R esult [facility] DPT OF LAB MED AND PAT+ [address] [place] [address] * Antinuclear antibody (ANNEL) (07/30/2017 10:06 AM EST) ANNEL SCREEN ON HEP 2 Negative Negative [facility] Blood 07/30/2017 10:0 6 AM EST 07/30/2017 10:49 AM EST us Ck Vickers MD LAB BLOOD ORDERABLES Final R esult Performing Organization Address City/[facility] [place] [facility]/ZIP Co de Phone Number [facility] [address] [place] [address] documented in this encounter Visit Diagnoses Diagnosis Neuropathy- Primary Mononeuritis of unspecified site documented in this encounter Care Teams Hardness Tester Relationship Specialty Start Date End Date Byron Galindo DO 29 [facility] [place] [address] PCP - General 03/22/17 03/29/18 Bennett Regalado DO [address] [address] [email or web address] PCP - General Family Medicine 03/30/18 10/20/20 Jany Denton FNP [address] [address] PCP - General 10/21/20 12/22/23 Greyson Rodriguez MD [address] [place] [address] PCP - General Internal Medicine 12/23/23 Byron Galindo DO 29 [place] [address] Historical LMR Provider 03/20/17 Sarthak Andersen DO 30 [place] [address] [email or web address] Primary Oncologist Medical Oncology 03/20/17 Richelle Jaeger, SENIOR INDUSTRIAL ENGINEER 29 [place] [address] Historical LMR Provider 03/20/17 Andressa Godoy MD [address] [place] [address], 2nd [place] [address] Historical LMR Provider 03/20/17 06/07/21 Sarina Avila MD [address] [place] [address] [email or web address] Historical LMR Provider 03/20/17 Baltazar Gill MD 22 [facility], 2nd [place] [address] Historical LMR Provider 03/20/17 06/07/21 Trish Meza, CHEMIST WATER PURIFICATION [address] [place] [address] Historical LMR Provider 03/20/17 2 Lj Mendoza DPM 22 [place] [address] Historical LMR Provider 03/20/1706/07/21 Renetta Rodriguez, CHEMIST WATER PURIFICATION [address] [place] [address] Historical LMR Provider 03/20/17 2 Evy Lockett MD [address] [place] [address] [email or web address] Historical LMR Provider 03/20/17 06/07/21 Андрей Boyd MD [address] [place] [address], [address] [place] [address] Urology 09/27/17 Ck Vickers MD [address] [place] [address], [address] [place] [address] Neurology 09/27/17 Sissy Jade PA-C [address] [place] [address] Physician Brood Hatchery Manager Hematology 04/18/21 documented as of this encounter Additional Source Comments The information contained in this document represents components of the legal health record. It is not the complete legal health record.[facility]
--- OUTSIDE RECORDS SUMMARY | 2025-02-16 11:04 | XMS_ITS | Encounter Summary ---
Author Organization [facility] Address [address] [place] [address] [place] [address] Phone Care Team Providers Care Supervisor Cigar Making Hand Name Role Phone Gianna Byron J DO Unavailable Sarthak Andersen DO Unavailable [phone] Sarina Avila MD Unavailable [phone] Андрей Boyd MD Unavailable [phone] Ck Vickers MD Unavailable [phone] Sissy Jade PA-C Unavailable [phone] Greyson Rodriguez MD Primary Care Provider [phone] Reason for Referral * MRI/CAT Scan - Closed Specialty Diagnoses / Procedures Referred By Contac t Referred To Contact Radiology Diagnoses JAVIER (dyspnea on exertion) Procedures NC Myocardial Perfusion Exercise Multiple Gael Coombs MD Phone: tel: fax: mailto:[email or web address] Referral ID Status Reason Start Date Expiration Date Visits Re quested Visits Authorized [id number] Closed 01/25/2024 03/24/2024 1 1 Encounter Details Date Type Department Care Team (Latest Contact Info) Description 01/25/2024 Transcribe [facility] [address] [place] [address] 3rd Floor, [address] [place], [place] [phone] Gael Coombs MD [address] [place] [address] [email or web address] JAVIER (dyspnea on exertion) (Primary Dx) Social History Tobacco Use Types [...] Description 04/13/2025 3:00 PM EST Office Visit [facility] at [address] [address] Sarthak Andersen DO [address] [place] [address] [email or web address] documented as of this encounter Results * NC Myocardial Perfusion Exercise Multiple (02/09/2024 1:31 PM EDT) Pathologist [facility] Max Predicted Heart Rate 144 bpm Stress/rest perfusion ratio 1.04 Nuc Stress EF 61 % SNMDIAVOL 92.0 mL SNMSYSVOL 36.0 mL Nuc Rest EF 60 % RNMDIAVOL 88.0 mL RNMSYSVOL 35.0 mL Anatomical Region Laterality Modality Heart, Vascular Ultrasound Narrative 02/11/2024 8:59 AM EDT Abnormal study Normal LV size and function. There is a small in size moderate intensity fixed defect in the distal inferior wall which suggest a small distal inferior scar. No significant ischemia is seen. Stress Findings NUCLEAR REPORT: TYPE OF STUDY: Myocardial Perfusion Imaging after exercise utilizing a standard Karl protocol with gated SPECT. PROTOCOL USED: One day rest- stress protocol in the supine and prone position. Images were obtained in gated tomographic technique. Images were processed in SPECT format, reconstructed tomographically and compared [id number] in short axis, horizontal long axis and vertical long axis. DOSE: Technetium 99m Sestamibi 7.0 mCi injected intravenously in the right antecubital vein at rest on 02/09/2024 with post injection scan time of 60 minutes. Technetium 99m Sestamibi 21.6 mCi injected intravenously in the right arm antecubital vein during stress on 02/09/2024 with post injection scan time of 20 minutes. Overall image quality is good. Diaphragmatic attenuation is present. No motion artifact is present. ECG STRESS REPORT: BMI: Ck Bergeron exercised for 5: 20 min on a KARL protocol achieving 4.9 METS. Test terminated due to fatigue. Baseline resting HR was 70 bpm. Max heart rate achieved was 127 bpm (88% MPHR). 1. ECG: Baseline ECG showed sinus rhythm without significant ST or T wave abnormality. With exercise there were ECG changes meeting criteria for ischemia: Up to 1 mm horizontal to slow upsloping ST depressions in inferior leads best seen in early recovery. 2. SYMPTOMS: No chest pain or symptoms concerning for angina 3. EXERCISE PHYSIOLOGY: Fair functional capacity for age. Blood pressure: 120/70 at rest, 178/70 with exercise, and 120/68 on discharge from stress lab. 4. ARRHYTHMIAS: Occasional isolated PVCs throughout testing, isolated ventricular couplet Conclusion: Exercise portion of nuclear stress test with ECG changes meeting criteria for ischemia. There are no symptoms concerning for angina. Nuclear images pending and will be reported separately. See attached stress report for full details. Semaj Queen NP Stress Function Defect Left ventricular global function is normal during stress. Stress ejection fraction is 61%. The stress end diastolic cavity size is normal. Stress end diastolic size: 92.0 mL. The stress end systolic cavity size is normal. Stress end systolic size: 36.0 mL. Rest Function Defect Left ventricular global function is normal at rest. Resting ejection fraction was 60%. The rest end diastolic cavity size is normal. Rest end diastolic size: 88.0 ml. The rest end systolic cavity size is normal. Rest end systolic size: 35.0 mL. Nuclear Prior Study There is no prior study available for comparison. Nuclear Ancillary Finding There is no evidence of transient ischemic dilation (TID). The TID ratio is 1.04, which is normal. Perfusion Scoring Resting Summed Score: 2 Percent Normal: 2.94% Moderate count reduction in the following segments: mid inferior. All other segments are normal. SUPINE IMAGING REST Perfusion Scoring Stress Summed Score: 2 Percent Normal: 2.94% Mild count reduction in the following segments: mid inferolateral and apical lateral. All other segments are normal. PRONE IMAGING STRESS Perfusion Scores: SRS Score: 2 Percentage Abnormal: 2.94% Perfusion Scores: SSS Score: 2 Percentage Abnormal: 2.94% Perfusion Scores: SDS Score: 0 Percentage Abnormal: 0.00% Procedure Note Osmany Chandler MD - 02/11/2024 Abnormal study Normal LV size and function. There is a small in size moderate intensity fixed defect in the distalinferior wall which suggest a small distal inferior scar. No significant ischemia is seen. us Gael Coombs MD CV NM CARDIAC Final Re sult documented in this encounter Visit Diagnoses Diagnosis JAVIER (dyspnea on exertion)- Primary Other dyspnea and respiratory abnormality JAVIER (dyspnea on exertion)- Primary Other dyspnea and respiratory abnormality documented in this encounter Care Teams Supervisor Cigar Making Hand Relationship Specialty Start Date End Date Greyson Rodriguez MD [address] [place] [address] [email or web address] PCP - General Internal Medicine 12/23/23 Byron Galindo DO [address] [place] [address] [place] [address] [email or web address] Historical LMR Provider 03/20/17 Sarthak Andersen DO [address] [place] [address] [email or web address] Primary Oncologist Medical Oncology 03/20/17 Sarina Avila MD [address] [place] [address] [email or web address] Historical LMR Provider 03/20/17 Андрей Boyd MD [address] [place] [address], [address] [place] [address] [email or web address] Urology 09/27/17 Ck Vickers MD [address] [place] [address], [address] [place] [address] [email or web address] Neurology 09/27/17 Sissy Jade PA-C [address] [place] [address] [email or web address] Physician Plastic Battery Assembler Hematology 04/18/21 documented as of this encounter Additional Source Comments The information contained in this document represents components of the legal health record. It is not the complete legal health record.[facility]
--- OUTSIDE RECORDS SUMMARY | 2025-02-16 11:04 | XMS_ITS | Encounter Summary ---
Author Organization [facility] Address [address] [place] [address] Phone Care Team Providers Care Inside B2B Sales Name Role Phone Byron Galindo DO Unavailable Sarthak Andersen DO Unavailable [phone] Richelle Jaeger CNP Unavailable Andressa Villegas MD Unavailable Sarina Avila MD Unavailable [phone] Baltazar Gill MD Unavailable [phone] Trish Meza TURKEY CLEANER Unavailable Lj Mendoza DPM Unavailable Unavailable Renetta Rodriguez TURKEY CLEANER Unavailable [phone] Evy Lockett MD Unavailable [phone] Byron Galindo DO Primary Care Provider [phone] Андрей Boyd MD Unavailable [phone] Ck Vickers MD Unavailable Bennett Regalado DO Primary Care Provider Jany Denton Primary Care Provider Sissy Jade PA-C Unavailable [phone] Greyson Rodriguez MD Primary Care Provider [phone] Encounter Details Date Type Department Care Team (Latest Contact Info) Description 09/15/2017 Transcribe Orders [facility] 29 [place] [address] Ck Vickers MD [address] [facility], [address] [place] [address] [email or web address] Numbness (Primary Dx) Social History Tobacco Use Types [...] Description 04/13/2025 3:00 PM EST Office Visit [facility] at [address] [address] Sarthak Andersen DO [address] [place] [address] [email or web address] documented as of this encounter Visit Diagnoses Diagnosis Numbness- Primary Disturbance of skin sensation documented in this encounter Care Teams Inside B2B Sales Relationship Specialty Start Date End Date Bryon Galindo DO 29 [facility] [place] [address] [email or web address] PCP - General 03/22/17 03/29/18 Bennett Regalado DO [address] [place] [address] [email or web address] PCP - General Family Medicine 03/30/18 10/20/20 Jany Denton FNP [address] [place] [address] PCP - General 10/21/20 12/22/23 Greyson Rodriguez MD [address] [place] [address] [email or web address] PCP - General Internal Medicine 12/23/23 Byron Galindo DO 29 [place] [address] [email or web address] Historical LMR Provider 03/20/17 Sarthak Andersen DO [address] [place] [address] [email or web address] Primary Oncologist Medical Oncology 03/20/17 Richelle Jaeger, CONSUELO 29 [place] [address] [email or web address] Historical LMR Provider 03/20/17 2 Andressa Villegas MD [address] [place] [address] [email or web address] Historical LMR Provider 03/20/17 06/07/21 Sarina Avila MD [address] [place] [address] [email or web address] Historical LMR Provider 03/20/17 Baltazar Gill MD [address] [address] [email or web address] Historical LMR Provider 03/20/17 06/07/21 Trish Meza, TURKEY CLEANER [address] [place] [address] Historical LMR Provider 03/20/17 2 Lj Mendoza DPM [address] [place] [address] Historical LMR Provider 03/20/1706/07/21 Renetta Rodriguez TURKEY CLEANER [address] [place] [address] Historical LMR Provider 03/20/17 2 Evy Lockett MD [address] [place] [address] Historical LMR Provider 03/20/17 06/07/21 Андрей Boyd MD [address] [place] [address], [address] [place] [address] Urology 09/27/17 Ck Vickers MD [address] [place] [address], [address] [place] [address] Neurology 09/27/17 Sissy Jade PA-C [address] [place] [address] Physician Agricultural Production Engineer Hematology 04/18/21 documented as of this encounter Additional Source Comments The information contained in this document represents components of the legal health record. It is not the complete legal health record.[facility]
--- OUTSIDE RECORDS SUMMARY | 2025-02-16 11:04 | XMS_ITS | Encounter Summary ---
Author Organization [employer] Address [address] [place] [address] 7 [place] [address] Care Team Providers Care Paper Slitter Name Role Phone Jany Denton SECURITY BUSINESS ANALYST Primary Care Provider [phone] Saman Mclean DMD Unavailable Unavailable Jany Denton [facility] Unavailable [phone] Jhony Carmichael [facility] Primary Care Provider Unavaila Blanka Ordonez [facility] Primary Care Provider + [phone] Attila Rene Unassigned Primary Care Provider U Greyson Fermin MD Primary Care Provider [phone] Encounter Details Date Type Department Care Team (Latest Contact Info) Description 01/12/2022 Abstract [facility] CONVERSIONS Dental, Provider, DDS Social History Tobacco [...] Description 06/12/2025 12:45 PM EST Office Visit [facility] DENTAL [address] [place] [phone] Alistair Miramontes, [facility] [address] [place] [address] 07/17/2025 10:30 AM EST Office Visit [facility] D[facility]AL [address] [place] [address] Yanelis Ariza LLD [address] [place] [address] documented as of this encounter Visit Diagnoses Not on filedocumented in this encounter Care Teams Paper Slitter Relationship Specialty Start Date End Date Jany Denton FNP [address] [place] [address] PCP - General Family Medicine 03/27/22 08/28/22 Jhony Carmichael FNP [address] [place] [address] PCP - General Family Medicine 12/31/22 03/08/23 Blanka Grullon FNP [address] [place] [address] PCP - General Family Medicine 03/09/23 04/08/23 Attila Rene Unassigned PCP - General Family Medicine 04/09/23 05/03/23 Greyson Rodriguez MD [address] [place] [address] PCP - General Internal Medicine 05/04/23 Saman Mclean DMD [address] [place] [address] Scan Special Procedures Technologist 03/27/22 Jany Denton FNP [address] [place] [address] Family Medicine 03/27/22 10/21/22 documented as of this encounter
--- OUTSIDE RECORDS SUMMARY | 2025-02-16 11:04 | XMS_ITS | Encounter Summary ---
Author Organization [employer] Address [address] [place] [address] 7 [place] [address] Care Team Providers Care Medical Staff Manager Name Role Phone Jany Denton Primary Care Provider [phone] Saman Mclean DMD Unavailable Unavailable Jany Denton [facility] Unavailable [phone] Jhony Carmichael [facility] Primary Care Provider Unavaila Blanka Ordonez [facility] Primary Care Provider [phone] Attial Rene Unassigned Primary Care Provider U Greyson Fermin MD Primary Care Provider + [phone] Reason for Visit * Reason Comments Med Refill Encounter Details Date Type Department Care Team (Late st Contact Info) Description 06/29/2022 Refill [facility] MEDICAL [address] [place] [address] Jany Denton FNP [address] [place], [place] [phone] Social History Tobacco Use Types Packs/Day Years Used Date Smoking Tobacco: Former Cigarettes Q uit: 05/14/2021 Smokeless Tobacco: Never Alcohol Use Standard Drinks/Week Comments Yes 2 (1 standard drink = 0.6 oz pur e alcohol) whiskey and water Sex and Gender Information Value Date Recorded Sex Assigned at Male 05/05/2022 8:17 AM EST Legal Sex Male 6:22 PM EDT Gender Identity Male 03/27/2022 6:22 PM EDT Sexual Orientation Straight 03/27/2022 6: 22 PM EDT COVID-19 Exposure Response Date Recorded In the last 10 days, have yo u been in contact with someone who was confirmed or suspected to have Coronavirus/COVID-19? No / Unsure 06/05/2022 1:46 PM EST documented as of this encounter Plan of Treatment Upcoming Encounters Date Type Department Care Team (Late st Contact Info) Description 06/12/2025 12:45 PM EST Office Visit [facility] DENTAL [address] [place] [phone] Alistair Miramontes, [address] [address] 07/17/2025 10:30 AM EST Office Visit [facility] DENTAL [address] [place] [phone] Yanelis Ariza LLD [address] [place] [address] documented as of this encounter Visit Diagnoses Not on filedocumented in this encounter Care Teams Medical Staff Manager Relationship Specialty Start Date End Date Jany Detnon FNP [address] [place] [address] PCP - General Family Medicine 03/27/22 08/28/22 Jhony Carmichael FNP [address] [place] [address] PCP - General Family Medicine 12/31/22 03/08/23 Blanka Grullon FNP [address] [place] [address] PCP - General Family Medicine 03/09/23 04/08/23 Attila Rene Unassigned PCP - General Family Medicine 04/09/23 05/03/23 Greyson Rodriguez MD [address] [place] [address] PCP - General Internal Medicine 05/04/23 Saman Mclean DMD [address] [place] [address] Dentist Dental Intermediate Designer 03/27/22 Jnay Denton FNP [address] [place] [address] Family Medicine 03/27/22 10/21/22 documented as of this encounter
--- OUTSIDE RECORDS SUMMARY | 2025-02-16 11:04 | XMS_ITS | Encounter Summary ---
Author Organization [employer] Address [address] [place] [address] 7 [place] [address] Care Team Providers Care Raisin Separator Operator Name Role Phone Jany Denton Primary Care Provider [phone] Saman Mclean DMD Unavailable Unavailable Jany Denton [facility] Unavailable [phone] Jhony Carmichael [facility] Primary Care Provider Unavaila Blanka Ordonez [facility] Primary Care Provider + [phone] Attila Rene Unassigned Primary Care Provider U Greyson Fermin MD Primary Care Provider Encounter Details Date Type Department Care Team (Late st Contact Info) Description 04/28/2022 Abstract [facility] MEDICAL [address] [place] [phone] Jany Denton FNP [address] [place] [phone] Social History Tobacco Use Types Packs/Day Years [...] Description 06/12/2025 12:45 PM EST Office Visit [facility] DENTAL [address] [place] [phone] [place], [place] [phone] 07/17/2025 10:30 AM EST Office Visit [facility] [address] [place] [phone] Yanelis Ariza LLD [address] [place] [address] documented as of this encounter Visit Diagnoses Not on filedocumented in this encounter Care Teams Raisin Separator Operator Relationship Specialty Start Date End Date Jany Denton FNP [address] [place] [address] PCP - General Family Medicine 03/27/22 08/28/22 Jhony Carmichael FNP [address] [place] [address] PCP - General Family Medicine 12/31/22 03/08/23 Blanka Grullon FNP [address] [place] [address] PCP - General Family Medicine 03/09/23 04/08/23 Attila Rene Unassigned PCP - General Family Medicine 04/09/23 05/03/23 Greyson Rodriguez MD [address] [place] [address] PCP - General Internal Medicine 05/04/23 Saman Mclean DMD [address] [place], [place] [phone] Dentist Dental Thermo Processor 03/27/22 Jany Denton FNP [address] [place] [address] Family Medicine 03/27/22 10/21/22 documented as of this encounter
--- OUTSIDE RECORDS SUMMARY | 2025-02-16 11:04 | XMS_ITS | Encounter Summary ---
Author Organization [facility] Address [address] [place] [address] Phone Care Team Providers Care Medical Liaison Name Role Phone Byron Galindo DO Unavailable Sarthak Andersen DO Unavailable [phone] Richelle Jaeger CNP Unavailable Andressa Villegas MD Unavailable [phone] Sarina Avila MD Unavailable Baltazar Gill MD Unavailable Trish Meza ASSEMBLY MACHINE TOOL SETTER Unavailable [phone] Lj Mendoza DPM Unavailable Unavailable Renetta Rodriguez ASSEMBLY MACHINE TOOL SETTER Unavailable [phone] Evy Lockett MD Unavailable [phone] Андрей Boyd MD Unavailable [phone] Ck Vickers MD Unavailable [phone] Bennett Regalado DO Primary Care Provider Jany Denton Primary Care Provider [phone] Sissy Jade PA-C Unavailable [phone] Greyson Rodriguez MD Primary Care Provider [phone] Encounter Details Date Type Department Care Team (Late st Contact Info) Description 10/13/2019 Transcribe Orders [facility] [address] [place] [address] Sarthak Andersen DO [address] [place] [address] [email or web address] Social History Tobacco Use Types Packs/Day Years [...] Description 04/13/2025 3:00 PM EST Office Visit [facility] at [address] [address] Sarthak Andersen DO [address] [place] [address] [email or web address] documented as of this encounter Visit Diagnoses Not on filedocumented in this encounter Care Teams Medical Liaison Relationship Specialty Start Date End Date Bennett Regalado DO [address] [address] [email or web address] PCP - General Family Medicine 03/30/18 10/20/20 Jany Denton FNP [address] [address] PCP - General 10/21/20 12/22/23 Greyson Rodriguez MD [address] [place] [address] [email or web address] PCP - General Internal Medicine 12/23/23 Byron Galindo DO [address] [place] [address] [place] [address] [email or web address] Historical LMR Provider 03/20/17 Sarthak Andersen DO 30 [place] [address] [email or web address] Primary Oncologist Medical Oncology 03/20/17 Richelle Jaeger, CONSUELO 29 [place] [address] [email or web address] Historical LMR Provider 03/20/17 2 Andressa Villegas MD [address] [address] [email or web address] Historical LMR Provider 03/20/17 06/07/21 Sarina Avila MD 31 [place] [address] [email or web address] Historical LMR Provider 03/20/17 Baltazar Gill MD [address] [address] [email or web address] Historical LMR Provider 03/20/17 06/07/21 Trish Meza, TORRES [address] [place] [address] Historical LMR Provider 03/20/17 2 Lj Mendoza DPM 22 [place] [address] Historical LMR Provider 03/20/1706/07/21 Renetta Rodriguez ASSEMBLY MACHINE TOOL SETTER [address] [place] [address] Historical LMR Provider 03/20/17 2 Evy Lockett MD 30 [place] [address] Historical LMR Provider 03/20/17 06/07/21 Андрей Boyd MD [address] [place] [address], [address] [place] [address] Urology 09/27/17 Ck Vickers MD [address] [place] [address], [address] [place] [address] Neurology 09/27/17 Sissy Jade PA-C 30 [place] [address] [email or web address] Physician Pattern Fitter Hematology 04/18/21 documented as of this encounter Additional Source Comments The information contained in this document represents components of the legal health record. It is not the complete legal health record.[facility]
--- OUTSIDE RECORDS SUMMARY | 2025-02-16 11:04 | XMS_ITS | Encounter Summary ---
Author Organization [facility] Address [address] [place] [address] Phone Care Team Providers Care Flaking Roll Operator Name Role Phone Byron Galindo DO Unavailable Sarthak Andersen DO Unavailable [phone] Richelle Jaeger CNP Unavailable Andressa Villegas MD Unavailable Sarina Avila MD Unavailable [phone] Baltazar Gill MD Unavailable [phone] Trish Meza CRITICAL CARE UNIT NURSE Unavailable [phone] Lj Mendoza DPM Unavailable Unavailable Renetta Rodriguez CRITICAL CARE UNIT NURSE Unavailable Evy Lockett MD Unavailable Byron Galindo DO Primary Care Provider [phone] Андрей Boyd MD Unavailable [phone] Ck Vickers MD Unavailable Bennett Regalado DO Primary Care Provider Jany Denton Primary Care Provider Sissy Jade PA-C Unavailable [phone] Greyson Rodriguez MD Primary Care Provider [phone] Encounter Details Date Type Department Care Team (Late st Contact Info) Description 10/06/2017 Transcribe Orders [facility] [address] [place] [address] Ck Vickers MD [address] [place] [address], [address] [place] [address] [email or web address] Social History Tobacco Use Types Packs/Day Years [...] Office Visit [facility] at [address] [address] Sarthak Andersen DO [address] [place] [address] [email or web address] documented as of this encounter Visit Diagnoses Not on filedocumented in this encounter Care Teams Flaking Roll Operator Relationship Specialty Start Date End Date Byron Galindo DO 29 [facility] [place] [address] [email or web address] PCP - General 03/22/17 03/29/18 Bennett Regalado DO [address] [address] [email or web address] PCP - General Family Medicine 03/30/18 10/20/20 Jany Denton FNP [address] [address] PCP - General 10/21/20 12/22/23 Greyson Rodriguez MD 30 [place] [address] [email or web address] PCP - General Internal Medicine 12/23/23 Byron Galindo DO 29 [place] [address] [email or web address] Historical LMR Provider 03/20/17 Sarthak Andersen DO 30 [place] [address] [email or web address] Primary Oncologist Medical Oncology 03/20/17 Richelle Jaeger CNP 29 [place] [address] [email or web address] Historical LMR Provider 03/20/17 2 Andressa Villegas MD [address] [address] [email or web address] Historical LMR Provider 03/20/17 06/07/21 Sarina Avila MD [address] [place] [address] [email or web address] Historical LMR Provider 03/20/17 Baltazar Gill MD [address] [address] [email or web address] Historical LMR Provider 03/20/17 06/07/21 Trish Meza, CRITICAL CARE UNIT NURSE [address] [place] [address] Historical LMR Provider 03/20/17 2 Lj Mendoza DPM [address] [place] [address] Historical LMR Provider 03/20/1706/07/21 Renetta Rodriguez, CRITICAL CARE UNIT NURSE [address] [place] [address] Historical LMR Provider 03/20/17 2 Evy Lockett MD [address] [place] [address] Historical LMR Provider 03/20/17 06/07/21 Андрей Boyd MD [address] [place] [address], [address] [place] [address] Urology 09/27/17 Ck Vickers MD [address] [place] [address], [address] [place] [address] Neurology 09/27/17 Sissy Jade PA-C [address] [place] [address] Physician [place] Hematology 04/18/21 documented as of this encounter Additional Source Comments The information contained in this document represents components of the legal health record. It is not the complete legal health record.[facility]
--- OUTSIDE RECORDS SUMMARY | 2025-02-16 11:04 | XMS_ITS | Encounter Summary ---
Author Organization [facility] Address [address] [place] [address] Phone Care Team Providers Care Nursing Officer Name Role Phone Byron Galindo DO Unavailable Sarthak Andersen DO Unavailable Richelle Jaeger CNP Unavailable Andressa Villegas MD Unavailable [phone] Sarina Avila MD Unavailable Baltazar Gill MD Unavailable Trish Meza CABLE TELEVISION LINE TECHNICIAN Unavailable Lj Mendoza DPM Unavailable Unavailable Renetta Rodriguez CABLE TELEVISION LINE TECHNICIAN Unavailable Evy Lockett MD Unavailable [phone] Андрей Boyd MD Unavailable [phone] Ck Vickers MD Unavailable Bennett Regalado DO Primary Care Provider Jany Denton Primary Care Provider [phone] Sissy Jade PA-C Unavailable [phone] Greyson Rodriguez MD Primary Care Provider [phone] Encounter Details Date Type Department Care Team (Late st Contact Info) Description 04/16/2020 Transcribe Orders [facility] 29 [place] [address] Bennett Regalado, [address] [address] [email or web address] Social History Tobacco Use Types Packs/Day Years [...] Description 04/13/2025 3:00 PM EST Office Visit [facility] at [address] [address] Sarthak Andersen DO [address] [place] [address] [email or web address] documented as of this encounter Visit Diagnoses Not on filedocumented in this encounter Care Teams Nursing Officer Relationship Specialty Start Date End Date Bennett Regalado DO [address] [address] [email or web address] PCP - General Family Medicine 03/30/18 10/20/20 Jany Denton FNP [address] [address] PCP - General 10/21/20 12/22/23 Greyson Rodriguez MD [address] [place] [address] [email or web address] PCP - General Internal Medicine 12/23/23 Byron Galindo DO [address] [place] [address] [place] [address] [email or web address] Historical LMR Provider 03/20/17 Sarthak Andersen DO 30 [place] [address] [email or web address] Primary Oncologist Medical Oncology 03/20/17 Richelle Jaeger, CONSUELO 29 [place] [address] [email or web address] Historical LMR Provider 03/20/17 2 Andressa Villegas MD [address] [address] [email or web address] Historical LMR Provider 03/20/17 06/07/21 Sarina Avila MD 31 [place] [address] [email or web address] Historical LMR Provider 03/20/17 Baltazar Gill MD [address] [address] [email or web address] Historical LMR Provider 03/20/17 06/07/21 Trish Meza, TORRES [address] [place] [address] Historical LMR Provider 03/20/17 2 Lj Mendoza DPM 22 [place] [address] Historical LMR Provider 03/20/1706/07/21 Renetta Rodriguez, CABLE TELEVISION LINE TECHNICIAN [address] [place] [address] Historical LMR Provider 03/20/17 2 Evy Lockett MD 30 [place] [address] Historical LMR Provider 03/20/17 06/07/21 Андрей Boyd MD [address] [place] [address], [address] [place] [address] [email or web address] Urology 09/27/17 Ck Vickers MD [address] [place] [address], [address] [place] [address] Neurology 09/27/17 Sissy Jade PA-C [address] [place] [address] Physician Block Hacker Hematology 04/18/21 documented as of this encounter Additional Source Comments The information contained in this document represents components of the legal health record. It is not the complete legal health record.[facility]
--- OUTSIDE RECORDS SUMMARY | 2025-02-16 11:04 | XMS_ITS | Encounter Summary ---
Author Organization [email or web address] Address [address] [facility] 7 [place] [address] Care Team Providers Care Spot Billing Clerk Name Role Phone LaynixonKary mccormacklang DMD Unavailable Unavailable Greyson Rodriguez MD Primary Care Provider + [phone] Encounter Details Date Type Department Care Team (Late st Contact Info) Description 04/14/2024 Orders Only [facility] [address] [place] [phone] Greyson Rodriguez MD [address] [place], [place] [phone] Unspecified hearing loss, unspecified ear Social History Tobacco Use Types Packs/Day Years [...] your housing situation today? I have vimal sesar 06/07/[address] you li [...] Description 06/12/2025 12:45 PM EST Office Visit [facility] [address] [place] [phone] Alistair Miramontes, [address] [address] 07/17/2025 10:30 AM EST Office Visit [facility] [address] [place] [phone] Yanelis Ariza LLD [address] [place] [phone] documented as of this encounter Procedures Procedure Name Priority Date/Time Associated Diagnosis Comments AMB REFERRAL TO AUDIOLOGY Routine 09/21/2023 Unspecified hearing loss, unspecified ear documented in this encounter Results * Referral to Audiology (09/21/2023) Greyson Rodriguez MD OUTPATIENT REFERRAL ORDERABL ES Final Result documented in this encounter Visit Diagnoses Diagnosis Unspecified hearing loss, unspecified ear documented in this encounter Care Teams Spot Billing Clerk Relationship Specialty Start Date End Date Greyson Rodriguez MD [address] [place] [address] PCP - General Internal Medicine 05/04/23 Saman Mclean DMD Dentist Dental Volunteer Specialist 03/27/22 documented as of this encounter
--- OUTSIDE RECORDS SUMMARY | 2025-02-16 11:04 | XMS_ITS | Encounter Summary ---
Author Organization [employer] Address 75 [facility] 7 [place] [address] Care Team Providers Care Fern Cutter Name Role Phone Saman Mclean DMD Unavailable Unavailable Jhony Carmichael MEDICAL ASSISTANT Primary Care Provider Unavaila Blanka Ordonez MEDICAL ASSISTANT Primary Care Provider [phone] Attila Rene Unassjack Primary Care Provider U Greyson Fermin MD Primary Care Provider + [phone] Encounter Details Date Type Department Care Team (Late st Contact Info) Description 10/22/2022 Telephone [facility] [address] [place] [phone] Saman Mclean, DMD Social History Tobacco Use Types Packs/Day Years [...] suspected to have Coronavirus/COVID-19? No / Unsure 10/20/2022 10:10 AM EDT documented as of this encounter Miscellaneous Notes * Telephone Encounter - July Velarde - 10/22/2022 10:31 AM EDT Pt wants adj of lower partial documented in this encounter Plan of Treatment Upcoming Encounters Date Type Department Care Team (Late st Contact Info) Description 06/12/2025 12:45 PM EST Office Visit [facility] [address] [place] [phone] Alistair Miramontes, [facility] [address] [place], [place] [phone] 07/17/2025 10:30 AM EST Office Visit [facility] [address] [place] [phone] Yanelis Ariza LLD [address] [place] [phone] documented as of this encounter Visit Diagnoses Not on filedocumented in this encounter Care Teams Fern Cutter Relationship Specialty Start Date End Date Jhony Carmichael FNP PCP - General Family Medicine 12/31/22 03/08/23 Blanka Grullon FNP [address] [place] [phone] PCP - General Family Medicine 03/09/23 04/08/23 Attila Rene Unassjack PCP - General Family Medicine 04/09/23 05/03/23 Greyson Rodriguez MD [address] [place] [address] PCP - General Internal Medicine 05/04/23 Saman Mclean DMD Dentist Dental Associate Professor Of Literacy 03/27/22 documented as of this encounter
--- OUTSIDE RECORDS SUMMARY | 2025-02-16 11:04 | XMS_ITS | Encounter Summary ---
Author Organization [employer] Address [address] [place] [address] 7 [place] [address] Care Team Providers Care Fuel Efficient Aircraft Designer Name Role Phone Jany Denton BLOCKER HAND Primary Care Provider + [phone] Saman Mclean DMD Unavailable Unavailable Jany Denton [facility] Unavailable [phone] Jhony Carmichael [facility] Primary Care Provider Unavaila Blanka Ordonez [facility] Primary Care Provider [phone] Attila Rene Unassigned Primary Care Provider U Greyson Fermin MD Primary Care Provider + [phone] Reason for Visit * Reason Onset Date Comments Medication Question 07/15/2022 Pt wants to discuss cutting back on medication, buPROPion SR (Wellbutrin SR) 150 MG 12 hr tablet, says my mind is running to fast please give pt a c/b Encounter Details Date Type Department Care Team ([facility] st Contact Info) Description 07/15/[address] [phone] Ambika Logan, AKIKO [address] [place] [address] [phone] Medication Question (Pt wants to discuss cutting back on medication, buPROPion SR (Wellbutrin SR) 150 MG 12 hr tablet, says my mind is running to fast please give pt a c/b ) Social History Tobacco Use Types Packs/Day Years [...] PM EDT documented as of this encounter Miscellaneous Notes * Telephone Encounter - Ambika Logan RN - 07/15/2022 1:20 PM EST Spoke with the patient, he will go back down to 150mg daily. [facility], states the only reason they could think of that insurance wouldn't cover med dosage is because its a combination med and might not be on their formulary anymore. Recommends trying to send rx to see if it will be rejected, or send meds separately because he suspects both would be covered individually * Telephone Encounter - Ambika Logan RN - 07/15/2022 12:21 PM EST Spoke with Ck, states since upping his wellbutrin dosage to 300mg daily he has noticed his ability to concentrate lessen and wants to lower it back down to 150mg daily but is unsure if he needs to taper it or not. Also wanted to inform us about his insurance not covering the current dosage of tamsulosin and is wondering what he should do about that. documented in this encounter Plan of Treatment Upcoming Encounters Date Type Department Care Team (Late st Contact Info) Description 06/12/2025 12:45 PM EST Office Visit [facility] [address] [place] [phone] Alistair Miramontes RDH [address] [place] [address] 07/17/2025 10:30 AM EST Office Visit [facility] [address] [place] [phone] Yanelis Ariza LLD [address] [place] [address] documented as of this encounter Visit Diagnoses Not on filedocumented in this encounter Care Teams Fuel Efficient Aircraft Designer Relationship Specialty Start Date End Date Jany Denton FNP [address] [place] [address] PCP - General Family Medicine 03/27/22 08/28/22 Jhony Carmichael FNP [address] [place] [address] PCP - General Family Medicine 12/31/22 03/08/23 Blanka Grullon FNP [address] [place] [address] PCP - General Family Medicine 03/09/23 04/08/23 Attila Rene Unassigned PCP - General Family Medicine 04/09/23 05/03/23 Greyson Rodriguez MD [address] [place] [address] PCP - General Internal Medicine 05/04/23 Saman Mclean DMD [address] [place] [address] Dentist Dental Contract Sheltered Workshop Supervisor 03/27/22 Jany Denton FNP [address] [place] [address] Family Medicine 03/27/22 10/21/22 documented as of this encounter
--- OUTSIDE RECORDS SUMMARY | 2025-02-16 11:04 | XMS_ITS | Encounter Summary ---
Author Organization [employer] Address 75 [facility] 7 [place] [address] Care Team Providers Care Boiler Assistant Operator Name Role Phone RubakathylynnKarylang DMD Unavailable Unavailable Greyson Ascencio MD Primary Care Provider + [phone] Encounter Details Date Type Department Care Team (Late st Contact Info) Description 04/19/2024 Telephone [facility] [address] [place] [phone] Greyson Ascencio MD [address] [place], [place] [phone] Social History Tobacco Use Types Packs/Day Years [...] encounter Miscellaneous Notes * Telephone Encounter - Alicia Goldman LPN - 04/20/2024 11:02 AM EST Pt stated has tried andrei wraps and compression stockings and elevation. Pt was looking for a increase but pt is just increasing to amount that was prescribed by md. Pt is taking one 20 mg tablet twicedaily as it was prescribed now. Pt is all set spoke to pharmacy they are filling it now. * Telephone Encounter - Brandi Wisdom - 04/19/2024 5:13 PM EST Pt called and left voicemail asking if DR ascencio will up the Furosemide as they discussed in last appt . PT has been doing it home and will need a new Rx sent in . documented in this encounter Plan of Treatment Upcoming Encounters Date Type Department Care Team ([facility] st Contact Info) Description 06/12/2025 12:45 PM EST Office Visit [facility] [address] [place] [phone] Kulwinder, Alistair, [address] [address] 07/17/2025 10:30 AM EST Office Visit [facility] [address] [place] [phone] Yanelis Ariza LLD [address] [place] [phone] documented as of this encounter Visit Diagnoses Not on filedocumented in this encounter Care Teams Boiler Assistant Operator Relationship Specialty Start Date End Date Greyson Ascencio MD [address] [place] [phone] PCP - General Internal Medicine 05/04/23 Saman Mclean DMD Dentist Dental Patient Safety Officer 03/27/22 documented as of this encounter
--- OUTSIDE RECORDS SUMMARY | 2025-02-16 11:04 | XMS_ITS | Encounter Summary ---
Author Organization [employer] Address [address] [place] [address] 7 [place] [address] Care Team Providers Care Low Voltage Technician Name Role Phone Caridad Saman PATTERSON Unavailable Unavailable Jhony Carmichael Primary Care Provider UnavailBlanka Dawn Primary Care Provider +- [phone] Attila Rene Unassjack Primary Care Provider U Greyson Fermin MD Primary Care Provider [phone] Reason for Visit * Reason Comments Med Refill Encounter Details Date Type Department Care Team (Late st Contact Info) Description 01/26/[address] [phone] Blanka Grullon FNP [address] [place], [place] [phone] Persistent insomnia Social History Tobacco Use Types Packs/Day Years [...] encounter Miscellaneous Notes * Telephone Encounter - MEAGHAN Jones - 01/27/2023 8:11 AM EDT Approved with 0 refills (covering for PCP). documented in this encounter Plan of Treatment Upcoming Encounters Date Type Department Care Team (Late st Contact Info) Description 06/12/2025 12:45 PM EST Office Visit [facility] [address] [place] [phone] Alistair Miramontes, [address] [phone] 07/17/2025 10:30 AM EST Office Visit [facility] [address] [place] [phone] Yanelis Ariza LLD [address] [place] [phone] documented as of this encounter Visit Diagnoses Diagnosis Persistent insomnia documented in this encounter Care Teams Low Voltage Technician Relationship Specialty Start Date End Date Jhony Carmichael FNP PCP - General Family Medicine 12/31/22 03/08/23 Blanka Grullon FNP [address] [place] [phone] PCP - General Family Medicine 03/09/23 04/08/23 Attila Rene Unassigned PCP - General Family Medicine 04/09/23 05/03/23 Greyson Rodriguez MD [address] [place] [phone] PCP - General Internal Medicine 05/04/23 Saman Mclean DMD Dentist Dental Double End Chucking Machine Operator 03/27/22 documented as of this encounter
--- OUTSIDE RECORDS SUMMARY | 2025-02-16 11:04 | XMS_ITS | Encounter Summary ---
Author Organization [employer] Address [address] [place] [address] 7 [place] [address] Care Team Providers Care Crusher Tender Name Role Phone Jany Denton SIGNAL TECHNICIAN Primary Care Provider [phone] Saman Mclean DMD Unavailable Unavailable Jany Denton [facility] Unavailable [phone] [facility] Primary Care Provider Unavaila Blanka Ordonez [facility] Primary Care Provider + [phone] Attila Rene Unassigned Primary Care Provider U Greyson Fermin MD Primary Care Provider +- [phone] Encounter Details Date Type Department Care Team (Latest Contact Info) Description 03/07/2021 Abstract [facility] CONVERSIONS Dental, Provider, DDS Social [...] Description 06/12/2025 12:45 PM EST Office Visit [facility] [address] [place] [phone] Alistair Miramontes, [facility] [address] [place] [address] 07/17/2025 10:30 AM EST Office Visit [facility] [address] [place] [phone] Yanelis Ariza LLD [address] [place] [address] documented as of this encounter Visit Diagnoses Not on filedocumented in this encounter Care Teams Crusher Tender Relationship Specialty Start Date End Date Jany Denton FNP [address] [place] [address] PCP - General Family Medicine 03/27/22 08/28/22 Jhony Carmichael FNP [address] [place] [address] PCP - General Family Medicine 12/31/22 03/08/23 Blanka Grullon FNP [address] [place] [address] PCP - General Family Medicine 03/09/23 04/08/23 Attila Rene Unassigned PCP - General Family Medicine 04/09/23 05/03/23 Greyson Rodriguez MD [address] [place] [address] PCP - General Internal Medicine 05/04/23 Saman Mclean DMD [address] [place] [address] Dentist Dental Beam Dyer Recessed Vat 03/27/22 Jany Denton FNP [address] [place] [phone] Family Medicine 03/27/22 10/21/22 documented as of this encounter
--- OUTSIDE RECORDS SUMMARY | 2025-02-16 11:04 | XMS_ITS | Encounter Summary ---
Author Organization [employer] Address [address] [place] [address] 7 [place] [address] Care Team Providers Care Wick And Base Assembler Name Role Phone RubagerardoKarylang PATTERSON Unavailable Unavailable Jhony Carmichael Primary Care Provider UnavailBlanka Dawn Primary Care Provider + [phone] Attila Rene Unassjack Primary Care Provider U Greyson Fermin MD Primary Care Provider + [phone] Encounter Details Date Type Department Care Team (Late st Contact Info) Description 01/26/2023 Abstract [facility] [address] [place] [phone] Jhony Carmichael FNP Social History Tobacco Use Types Packs/Day Years [...] 12:45 PM EST Office Visit [facility] [address] [place] [phone] Alistair Miramontes [facility] [address] [place] [address] 07/17/2025 10:30 AM EST Office Visit [facility] [address] [place] [phone] Yanelis Ariza LLD [address] [place] [address] documented as of this encounter Visit Diagnoses Not on filedocumented in this encounter Care Teams Wick And Base Assembler Relationship Specialty Start Date End Date Jhony Carmichael FNP PCP - General Family Medicine 12/31/22 03/08/23 Blanka Grullon FNP [address] [place] [address] PCP - General Family Medicine 03/09/23 04/08/23 Attila Rene Unassigned PCP - General Family Medicine 04/09/23 05/03/23 Greyson Rodriguez MD [address] [place] [address] PCP - General Internal Medicine 05/04/23 Saman Mclean DMD Dentist Dental Section 8 Property Manager 03/27/22 documented as of this encounter
--- OUTSIDE RECORDS SUMMARY | 2025-02-16 11:04 | XMS_ITS | Clinical Summary ---
Author Organization [employer] Address [address] [place] [address] Care Team Providers Care Muff Winder Name Role Phone LaynixonSaman mccormack DMD Unavailable Unavailable Greyson Rodriguez MD Primary Care Provider Allergies Active Allergy Reactions Criticality Noted Date Comments Pollen Extract Runny nose 07/29/2022 Medications Multiple Vitamins-Minerals (EQ Complete Multivit Adult 50+) tablet in the morning. 01/07/20 18 Active Acetaminophen 500 MG capsule Take 1,000 mg by mouth every 6 (six) hours if needed. Active Fluticasone-Salmet sd 100-50 MCG/ACT aerosol powderIndications: Allergic rhinitis, unspecified seasonality, unspecified trigger,Wheeze Inhale 1 puff 2 times daily. 60 each 3 11/03/19 24 Active albuterol 108 (90 Base) MCG/ACT inhalerIndications :JAVIER (dyspnea on exertion) Inhale 2 puffs every 6 (six) hours if needed for wheezing. 18 g 11 02/10/20 24 Active aspirin 81 MG oral suspension Take 81 mg by mouth 1 (one) time. Active Umeclidinium Napoleon (Incruse Ellipta) 62.5 MCG/ACT aerosol powderIndications: Allergic rhinitis, unspecified seasonality, unspecified trigger,Wheeze Inhale 1 puff Once per day. 30 each 3 02/14/20 24 Active traZODone (Desyrel) 100 MG tablet Take 1 tablet (100 mg) by mouth at bedtime. 90 tablet 3 03/01/20 24 Active fluticasone (Flonase) 50 MCG/ACT nasal sprayIndications:A cute recurrent ethmoidal sinusitis Administer 1-2 sprays into each nostril Once per day. Shake gently. Before first use, prime pump. After use, clean tip and replace cap. 16 g 07/04/19 25 026 Active amoxicillin (Amoxil) 500 MG capsule Take 1 capsule (500 mg) by mouth See administration instructions for 1 dose. Take 4 capsules (2,000 mg) by mouth, 1 (one) hour prior to an invasive oral precedure 4 capsule 08/01/19 25 Active atorvastatin (Lipitor) 80 MG tabletIndications: Hyperlipidemia, unspecified hyperlipidemia type Take 1 tablet (80 mg) by mouth Once per day. 30 tablet 11/29/19 25 026 Active Dutasteride-Tamsul osin HCl 0.5-0.4 MG capsule TAKE ONE CAPSULE BY MOUTH EVERY MORNING 90 capsule 3 12/05/19 25 Active amoxicillin (Amoxil) 500 MG capsuleIndications :Need for antibiotic prophylaxis for dental procedure Take 4 capsules (2,000 mg) by mouth 1 (one) time if needed (Take prior to dental procedure.). 4 capsule 3 12/08/19 25 Active furosemide (Lasix) 20 MG tablet Take 1 tablet (20 mg) by mouth 2 times daily. 90 tablet 3 12/12/19 25 Active Active Problems Problem Noted Date Diagnosed Date Dental caries 12/16/2023 Hyperkalemia 02/04/2023 Anxiety 10/07/2022 Actinic keratosis 10/07/2022 Overview (10/07/2022): And hx SCC followed annually by derm in [place] Tooth sensitivity to cold 09/02/2022 Nonintractable headache 06/05/2022 Acute recurrent ethmoidal sinusitis 06/05/2022 Attention or concentration deficit 07/22/2020 Tobacco dependence due to cigarettes 06/12/2020 MGUS (monoclonal gammopathy of unknown significa nce) 04/14/2019 Allergic rhinitis 01/10/2018 GERD (gastroesophageal reflux disease) 8 Overview (05/04/2022): Note: non bleeding ulcer found on endoscopy 2011 Cataract 01/06/2018 Overview (05/04/2022): Note: right eye Depression 01/06/2018 Essential hypertriglyceridemia 01/06/2018 Overview (05/04/2022): Note: PVD narrowing; plaque in right iliac artery Genital herpes simplex 01/06/2018 Gingivitis 01/06/2018 Osteoarthritis 01/06/2018 Overview (05/04/2022): Note: low back and left knee Social phobia 01/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 started concurrent chemo and radiation therapy with cisplanin 09/21/16 Elevated PSA 07/02/2017 Memory loss 07/01/2017 Overview (10/07/2022): Last Assessment & Plan: ? MCI ? Vascular etiology, ? Side effects from chemotherapy. Pt to have labs and will be evaluated by Neurology. Consider imaging. Check labs. 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 Undergoing radiation treatment. Follows with ENT Dr Naik q 3 months. Regular endoscopy. Treated with chemoradiation. Oncologist Dr Andersen. Persistent insomnia 12/29/2013 Overview (05/04/2022): Note: pg. 111 of Old Records Encounters Date Type Department Care Team Description 01/10/2025 2:45 PM EDT Office Visit [facility] [address] [place] [phone] Saman Mclean DMD 01/09/2025 Travel 12/08/2024 Refill [facility] [address] [place] [phone] Greyson Rodriguez MD 12/06/2024 12:45 PM EDT Office Visit [facility] [address] [place] [phone] Alistair Miramontes RDH 12/06/[address] [phone] Greyson Rodriguez MD Need for antibiotic prophylaxis for dental procedure 12/02/[address] [phone] Greyson Rodriguez MD 11/28/[address] [phone] Greyson Rodriguez MD from Last 3 Months Immunizations Immunization Administration Dates Next Due Hep B, adult 07/03/2010,02/06/2009,01/03/2009 Influenza High-dose Quadriva lent Preservative Free 03/12/2023 Influenza, High Dose Seasona l, Preservative Free 05/05/2022,02/23/2019,03/25/2018 Influenza, Unspecified 02/11/2016,02/16/2014,07/2010 Influenza, seasonal, injecta ble, preservative free 02/13/2015 Moderna Covid-19 Vaccine 12+ 04/28/2021,08/14/19 21,07/15/2020 Pfizer Covid-19 Vaccine 12+ 10/28/2021 Pfizer Covid-19 Vaccine 12+ Bivalent 05/05/2022 Pneumococcal Conjugate PCV 13 01/10/2018 Pneumococcal Polysaccharide PPSV23 02/11/2016, TD (adult), 2 Lf tetanus tox oid, preservative free, adsorbed 07/30/2003 Tdap 01/26/2024,01/12/2014 Zoster, Recombinant 02/03/2018 Zoster, live 02/16/2014 Family History Medical History Relation Name Comments Cancer Father bladder with ME TS Diabetes Mother Heart disease Mother Relation Name Status Comments Father Mother Social History Tobacco Use Types Packs/Day Years Used Date Smoking Tobacco: Former Cigarettes Q uit: 05/14/2021 Smokeless Tobacco: Never Tobacco Cessation:Counseling Given: Not Answered Alcohol Use Standard Drinks/Week Comments Yes 2 [...] more drinks on one occasion? 0 07/12/2023 Depression Answer Date Recorded Patient Health Questionnaire-9 Score 0 11/06/2024 Patient Health Questionnaire-9 Score 0 11/06/2024 Last PHQ-9: Questionnaire Data Not on file 0 11/06/2024 Housing Stability Answer Date Recorded What is your housing situation today? I have vimal kaba 11/06/[address] you li ve. Do you have problems with any of the following? None of the above 11/06/2024 Food Insecurity Answer Date Recorded Within the past 12 months, y ou worried that your food would run out before you got money to buy more: Never True 11/06/2024 Within the past 12 months,th e food you bought just didn't last and you didn't have enough money to get more: Never True 01/2025 Transportation Answer Date Recorded In the past 12 months, has l ack of transportation kept you from medical appts, meetings, work or from getting things needed for daily living? No 11/06/2024 Intimate Partner Violence Answer Date R ecorded [...] shut off services in your home? No 11/06/2024 Depression Answer Date Recorded Patient Health Questionnaire-2 Score 0 11/06/2024 Internet Access Answer Date Recorded Internet Access Q1 Yes 11/06/2024 Internet Access Q2 Not on file 11/06/2024 Sex and Gender Information Value Date Recorded Sex Assigned at Male 05/05/2022 8:17 AM EST Legal Sex Male 6:22 PM EDT Gender Identity Male 03/27/2022 6:22 PM EDT Sexual Orientation Straight 03/27/2022 6: 22 PM EDT Last Filed Vital Signs Vital Sign Reading Time Taken Comments Blood Pressure 122/75 01/10/2025 2:50 PM EDT Pulse 79 01/10/2025 2:50 PM EDT Temperature 36.7 C (98 F) 01/10/2025 2:50 PM EDT Respiratory Rate - - Oxygen Saturation 96% 11/06/2024 1:22 PM EDT Inhaled Oxygen Concentration - - Weight 95.3 kg (210 lb) 11/06/2024 1:22 PM EDT Height 175.3 cm (5' 9 ) 11/06/2024 1:22 PM EDT Body Mass Index 31.01 11/06/2024 1:22 PM EDT Plan of Treatment Upcoming Encounters Date Type Department Care Team (Late st Contact Info) Description 06/12/2025 12:45 PM EST Office Visit [facility] [address] [place] [phone] Alistair Miramontes, [address] [address] 07/17/2025 10:30 AM EST Office Visit [facility] [address] [place] [phone] Yanelis Ariza LLD [address] [place] [phone] Health Maintenance Due Date Last Done Comments Derm Melanoma Skin Check 1945 Zoster Vaccines (3 of 3) 03/31/2018 02/03/2018, 01/29 COVID-19 Vaccine ( season) 2025 03/10/2024, 03/25/2023, 05/05/2022, Additional history exists Influenza Vaccine (#1) 2025 , 03/12/2023, 05/05/2022, Additional history exists Dental Prophylaxis 06/09/2025 12/06/2024, 1 , 11/18/2023, Additional history exists Dental Oral Exam 07/14/2025 01/10/2025, , 08/18/2022, Additional history exists Lung Cancer Screening 07/17/2025 07/17/2024 , 07/17/2024, 07/15/2023 Alcohol/Substance Use Screening 11/06/2025 11/06/2024 Depression Screening 11/06/2025 11/06/2024, 11/07/19 SDOH Screening 11/06/2025 11/06/2024 Tobacco Screening 12/06/2025 12/06/2024 Dental X-Ray: Bitewings 01/11/2026 01/11/20, 11/18/2023, 07/23/2022, Additional history exists Dental X-Ray: Full Mouth 01/12/2028 025, 04/21/2021, 02/28/2018 Lipid Panel 11/06/2029 11/06/2024, 07/01, 01/25/2023, Additional history exists DTaP/Tdap/Td Vaccines (3 - Td or Tdap) 01/25/2034 01/26/2024, 01/12/2014, 07/30/2003 Hepatitis B Vaccines Completed 07/03/2010, 02/06/2009, 01/03/2009 Pneumococcal Vaccine: 50+ Years Completed 01/10/2018, 07/01/2017, 02/11/2016, Additional history exists Hepatitis C Screening Completed 05/12/2018 Colonoscopy Discontinued 11/19/2020, 11/19/2020 Colorectal Cancer Screening Discontinued RSV Patients and Patients Aged 60 years or older Completed 04/15/2024 CT Colonography Discontinued FIT DNA/Cologuard Discontinued FIT Discontinued FOBT Discontinued HIB Vaccines Aged Out No longer eligi ble based on patient's age to complete this topic HPV Vaccines Aged Out No longer eligi ble based on patient's age to complete this topic Hepatitis A Vaccines Aged Out No long er eligible based on patient's age to complete this topic IPV Vaccines Aged Out No longer eligi ble based on patient's age to complete this topic Meningococcal B Vaccine Aged Out No l onger eligible based on patient's age to complete this topic Meningococcal Vaccine Aged Out No saúl thais eligible based on patient's age to complete this topic RSV under 20 months Aged Out No longe r eligible based on patient's age to complete this topic Rotavirus Vaccines Aged Out No longer eligible based on patient's age to complete this topic Sigmoidoscopy Discontinued Procedures Procedure Name Priority Date/Time Associated Diagnosis Comments INTRAORAL - COMPLETE SERIES OF RADIOGRAPHIC IMAGES Routine 01/10/2025 2:45 PM EDT PERIODIC ORAL EVALUATION - ESTABLISHED PATIENT Routine 01/10/2025 2:45 PM EDT PROPHYLAXIS - ADULT Routine 12/06/2024 1 2:45 PM EDT MR BRAIN W AND WO CONTRAST Routine 11/22/2024 Attention or concentration deficit LIPID PANEL WITH REFLEX TO DIRECT LDL Routine 11/06/2024 3:09 PM EDT Coronary artery disease involving [place] heart without angina pectoris, unspecified vessel or lesion type CT LOW DOSE SCREENING Routine 07/17/2024 10:24 AM EST HM COLONOSCOPY Routine 11/19/2020 HEPATITIS C ANTIBODY Routine 05/12/2018 from Last 3 Months or Most Recently Relevant to Health Maintenance Results * Mr Brain w/ and w/o Contrast (11/22/2024) Anatomical Region Laterality Modality Brain Magnetic Resonan ce Greyson Rodriguez MD [facility] MRI PROCEDURES Final Res ult * Lipid Panel with Reflex to Direct LDL (11/06/2024 3:09 PM EDT) Cholesterol, Total 131 <200 mg/dL [employer] [facility] HDL Cholesterol 52 > OR = 40 mg/dL [employer] [facility] Triglycerides 122 <150 mg/dL [employer] [facility] LDL Cholesterol 59 mg/dL [facility] [employer] [facility] Comment: Reference range: <100 Desirable range <100 mg/dL for primary prevention; <70 mg/dL for patients with CHD or diabetic patients with > or = 2 CHD risk factors. LDL-C is now calculated using the Nahomi calculation, which is a validated novel method providing better accuracy than the Friedewald equation in the estimation of LDL-C. Guillermo HARDING et al. RONAK. 2013;310(68): 8857-6248 (http://Episencial.Angiologix/faq/YBD043) Chol/HDLC Ratio 2.5 <5.0 (calc) [employer] [facility] Non-HDL Cholesterol 79 <130 mg/dL [employer] [facility] Comment: For patients with diabetes plus 1 major ASCVD risk factor, treating to a non-HDL-C goal of <100 mg/dL (LDL-C of <70 mg/dL) is considered a therapeutic option. Blood 11/06/2024 3:09 PM EDT 11/06/2024 3:12 PM EDT Narrative [facility] - 11/09/2024 5:49 PM EDT FASTING:UNKNOWN FASTING: UNKNOWN Greyson Rodriguez MD LAB BLOOD ORDERABLES Final R esult [facility] [address], [place] [address] [employer] [facility] [address] [place] [phone] * CT Low Dose Screening (07/17/2024 10:24 AM EST) Anatomical Region Laterality Modality Chest Computed Tomogra phy 07/17/2024 10:2 4 AM EST Narrative 07/17/2024 3:[address] Chest LDCT Lung Program Reason: Other:; LDCT LUNG CANCER SCREENING PROGRAM, CURRENT SMOKER, 74 PACK YEAR HX; Clinical Question(s): Other:; Special Instructions: BOOK AT [address] [place] [address] ., [place] BOOK AFTER 07 [address] IN THE LAST 12 MONTHS NO LUNG CA OR SIGNS AND SYMPTOMS OF LUNG CA Visit type: Annual Screening TECHNIQUE: Low-dose helical CT of the chest without IV contrast (Adult Lung Cancer Screening) protocol was performed. Coronal reformats were obtained. Weight-based protocol using automatic tube modulation was used to optimize exposure parameters. CTDIvol Body: 1.60 mGy, DLP Body: 67 mGy*cm. COMPARISON: 07/15/2023 FINDINGS: LUNG NODULES (measured on thin axial series 203): RIGHT lun mm subpleural nodule right middle lobe, medial segment (image 61), stable. Previously noted 3 mm nodule in the right lower lobe, posterior segment is not seen on today's exam and may have resolved in the interim. LEFT lun mm nodule in the mid left major fissure, most compatible with a prominent intraparenchymal lymph node (image 52), stable. OTHER FINDINGS: Marine Farmer view findings, lines and tubes: None. Trachea and airways: Patent without evidence of tracheal or endobronchial lesion. Lungs and pleura: Clear lungs. No effusion or pneumothorax. Mediastinum and belinda: No mass or hematoma. No mediastinal or hilar lymphadenopathy. No esophageal abnormality. Partially imaged thyroid is unremarkable. Heart: Heart is normal in size. No pericardial effusion. Moderate-severe coronary artery calcification. Aorta: Mild aortic valve calcifications. Mild vascular calcification but no aneurysm. Pulmonary arteries: Normal caliber. Chest wall soft tissues: No acute abnormality. Diaphragm: Intact. Upper abdomen: No significant abnormality. Bones: Multilevel thoracolumbar degenerative disc disease. No acute abnormality. IMPRESSION: 1. LungRad Category: 2 Benign Appearance or Behavior. Nodules with a very low likelihood of becoming a clinically active cancer due to size or lack of growth. Continue annual screening with LDCT in 12 months. 2. No significant additional findings requiring further evaluation. Lung-RAD Category Modifier: None. Categorization based on Lung-RADS 2022 criteria. [email or web address] WSN: [id number] Ordering Physician: Greyson Rodriguez MD Dictated By: Maria M Dye MD Dictated Date/Time: 07/17/24 3:42 pm Reviewed By: Maria M Dye MD Signed By: Maria M Dye MD Signed Date/Time: 07/17/24 3:42 pm Transcribed By: DERRICK Transcribed Date/Time: 07/17/24 3:41 pm Procedure Note Donotuseinterpreter, Image - 07/17/2024 CT Chest LDCT Lung Program Reason: Other:; LDCT LUNG CANCER SCREENING PROGRAM, CURRENT SMOKER, 76PACK YEAR HX; Clinical Question(s): Other:; Special Instructions: BOOK AT [address] [place] [address] ., [place] BOOK AFTER 07 [address] IN THE LAST 12 MONTHSNO LUNG CA OR SIGNS AND SYMPTOMS OF LUNG CA Visit type: Annual Screening TECHNIQUE: Low-dose helical CT of the chest without IV contrast (AdultLung Cancer Screening) protocol was performed. Coronal reformats wereobtained. Weight-based protocol using automatic tube modulation was used tooptimize exposure parameters. CTDIvol Body: 1.60 mGy, DLP Body: 67 mGy*cm. COMPARISON: 07/15/2023 FINDINGS: LUNG NODULES (measured on thin axial series 203): RIGHT lun mm subpleural nodule right middle lobe, medial segment (image 61),stable. Previously noted 3 mm nodule in the right lower lobe, posterior segment isnot seen on today's exam and may have resolved in the interim. LEFT lun mm nodule in the mid left major fissure, most compatible with aprominent intraparenchymal lymph node (image 52), stable. OTHER FINDINGS: Marine Farmer view findings, lines and tubes: None. Trachea and airways: Patent without evidence of tracheal orendobronchial lesion. Lungs and pleura: Clear lungs. No effusion or pneumothorax. Mediastinum and belinda: No mass or hematoma. No mediastinal or hilar lymphadenopathy. No esophageal abnormality. Partially imaged thyroid is unremarkable. Heart: Heart is normal in size. No pericardial effusion. Moderate-severe coronary artery calcification. Aorta: Mild aortic valve calcifications. Mild vascular calcification butno aneurysm. Pulmonary arteries: Normal caliber. Chest wall soft tissues: No acute abnormality. Diaphragm: Intact. Upper abdomen: No significant abnormality. Bones: Multilevel thoracolumbar degenerative disc disease. No acuteabnormality. IMPRESSION: 1. LungRad Category: 2 Benign Appearance or Behavior. Nodules with a very low likelihood ofbecoming a clinically active cancer due to size or lack of growth. Continue annual screening with LDCT in 12 months. 2. No significant additional findings requiring further evaluation.Lung-RAD Category Modifier: None. Categorization based on Lung-RADS 2022 criteria. [email or web address] WSN: [id number] Ordering Physician: Greyson Rodriguez MD Dictated By: Maria M Dye MD Dictated Date/Time: 07/17/24 3:42 pm Reviewed By: Maria M Dye MD Signed By: Maria M Dye MD Signed Date/Time: 07/17/24 3:42 pm Transcribed By: CSBridget Transcribed Date/Time: 07/17/24 3:41 pm Greyson Rodriguez MD IMG CT PROCEDURES Final Resu lt * Colonoscopy (11/19/2020) Colonoscopy REPEAT IN 5 YEARS. Historical Provider HEALTH MAINTENANCE Final Result * Hepatitis C Antibody (05/12/2018) Hepatitis C Antibody Nonreactive Blood Historical Provider HEALTH MAINTENANCE Final Result from Last 3 Months or Most Recently Relevant to Health Maintenance Insurance [employer] [place] [employer]AC[place] PPO [facility] F[facility] - BCBS MEDICARE ADVANTAGE DENTAL - HSN FULL (MEDICAID) Care Teams Muff Winder Relationship Specialty Start Date End Date Greyson Rodriguez MD [address] [place] [id number] PCP - General Internal Medicine 05/04/23 Saman Mlcean DMD Dentist Dental Manufacturing Inspector 03/27/22
--- OUTSIDE RECORDS SUMMARY | 2025-02-16 11:04 | XMS_ITS | Encounter Summary ---
Author Organization [employer] Address [address] [place] [address] [address] [place] [address] Care Team Providers Care Fast Food Assistant Restaurant Manager Name Role Phone Jany Denton MORPHOLOGIST Primary Care Provider [phone] Saman Mclena DMD Unavailable Unavailable Jany Denton [facility] Unavailable [phone] Jhony Carmichael [facility] Primary Care Provider Unavaila Blanka Ordonez [facility] Primary Care Provider + [phone] Attila Rene Unassigned Primary Care Provider U Greyson Fermin MD Primary Care Provider [phone] Encounter Details Date Type Department Care Team (Latest Contact Info) Description 01/22/2021 Abstract [facility]VERSION[facility] Dental, Provider, DDS Social History [...] Description 06/12/2025 12:45 PM EST Office Visit [facility] [address] [place] [phone] Alistair Miramontes, [facility] [address] [place] [address] 07/17/2025 10:30 AM EST Office Visit [facility] [address] [place] [phone] Yanelis Ariza LLD [address] [place] [address] documented as of this encounter Visit Diagnoses Not on filedocumented in this encounter Care Teams Fast Food Assistant Restaurant Manager Relationship Specialty Start Date End Date Jany Denton FNP [address] [place] [address] PCP - General Family Medicine 03/27/22 08/28/22 Jhony Carmichael FNP [address] [place] [address] PCP - General Family Medicine 12/31/22 03/08/23 Blanka Grullon FNP [address] [place] [address] PCP - General Family Medicine 03/09/23 04/08/23 Attila Rene Unassigned PCP - General Family Medicine 04/09/23 05/03/23 Greyson Rodriguez MD [address] [place] [phone] PCP - General Internal Medicine 05/04/23 Saman Mclean DMD [address] [place] [address] Dentist Dental Roving Frame Tender 03/27/22 Jany Denton FNP [address] [place] [phone] Family Medicine 03/27/22 10/21/22 documented as of this encounter
== END 2025-02-16 11:09 | disposition home or self-care (01) ==
LOC: HO.HOS 10:29
PROVIDERS: Visit Provider Physical Medicine & Rehabilitation
DX: M16.11 Unilateral primary osteoarthritis, right hip (principal)
CPT/HCPCS: 99204

== ENCOUNTER → 2025-02-16 10:28 | Outpatient (BNVA) | payer MEDICARE, SELFPAY | PROVIDERS: Visit Provider Physical Medicine & Rehabilitation | DX: M16.11 Unilateral primary osteoarthritis, right hip (principal) | CPT/HCPCS: 99202 ==

== ENCOUNTER 2025-03-01 12:59 | Outpatient (AMB) | payer MEDICARE, SELFPAY ==
--- NOTE | 2025-03-01 13:11 | A.OFFVIS_ITS ---
Intake Visit Reasons: OV - discuss Right MELINDA Intake Note: Ck is a 79 year old male who presents today for a follow up of his Right Hip to discuss possible Right MELINDA. He was last seen with Dr. Mena to rule our SI Joint dysfunction, which it was determined to be negative. Allergies Seasonal Allergies Allergy (Verified 02/16/25 10:50) unknown HPI HPI OV - discuss Right MELINDA: Details: Ck is a 79-year-old gentleman who comes in today with years of worsening right hip pain. He had a left hip replacement 3 years ago. This went well. He comes in describing similar right-sided pain. He notices that he has pain and a limp when he walks more than 100 ft. He states he has difficulty getting into and out of chair or a car and sleeping is occasionally difficult. He denies num bness and tingling. He does have some SI joint pain on the ipsilateral side. [facility] Medical History Arthritis Balance problem Heart burn Primary osteoarthritis of left hip Prostate cancer Tonsil cancer Surgical History H/O vasectomy History of appendectomy History of bilateral cataract extraction History of hernia repair History of tonsillectomy History of tooth extraction Social History Household Members: None Housing: Apartment Are you a primary healthcare specialist to a significant other at home: No Do you presently have visiting nurse or other home services: No Alcohol intake: current Alcohol intake frequency: a few times a week Alcohol type: beer and wine Comment: wrist are painful when usinf cane Patient Tobacco Use Status: Former Tobacco user Tobacco use type: Cigarette Cigarettes Per Day: 4 Second Hand Smoke Exposure: Yes (Visiting son) service: No Current occupational status: retired Current occupation: rt handed Physical Exam Const General: cooperative, healthy appearing, no acute distress, well developed and alert HEENT Head: Yes normal to inspection, Yes normocephalic and Yes atraumatic Mouth: moist mucous membranes Eyes General: appearance normal, both eyes and all related structures EOM: EOMs intact bilaterally Chest Other: no audible wheezing. Resp Other: No audible wheezing Effort & Inspection: normal respiratory effort Cardio Other: Radial pulse palpable with no rythmic abnormalities Back/Spine/Pelvis Cervical Spine: normal cervical lordosis Skin General skin exam: no rashes or lesions noted Neuro General: no focal motor deficits Extrem Other: There is a positive Trendelenburg gait on the right with positive impingement test on the right. He has 2+ dorsalis pedis pulse on the right. He has 90 degrees of hip flexion but minimal rotation. Psych Appearance: grossly normal and well kempt Mental Status: mental status grossly normal Speech and movement: Normal speech and movement present Affect: normal affect Attitude: cooperative Results Reviewed Results Reviewed: I personally reviewed relevant radiographs. Left MELINDA in expected post operative position with no hardware complications or evidence of loosening Right hip with severe OA Assessment & Plan Assessment & Plan (1) Osteoarthritis of right hip: Code(s): M16.11 - Unilateral primary osteoarthritis, right hip Category: Medical Qualifiers: Osteoarthritis type: primary Qualified Code(s): M16.11 - Unilateral primary osteoarthritis, right hip Plan: Ck is a 79-year-old relatively healthy gentleman who is active with severe right hip arthritis. He has been having worsening pain and now he can walk no m ore than 100 ft without limping and pain. I reviewed his radiographs with him. He had a positive experience after a left hip replacement 3 years ago and I recommend right hip replacement. I discussed treatment options with him and explained the risks, benefits and alternatives to hip arthroplasty. Mainly risk of infection, fracture, dislocation, leg length discrepancy, nerve injury, vascular injury, medical complication associated with surgery such as blood clot, heart attack, organ failure. He expressed understanding. We will begin the preoperative clearance process. All his questions were answered to the best of my abilities. Coding Level of Care Code Est Pt Level 4 (95198) Diagnoses Primary osteoarthritis of right hip M16.11 Osteoarthritis type: primary
--- OUTSIDE RECORDS SUMMARY | 2025-03-01 14:27 | XMS_ITS | Encounter Summary ---
Author Organization [facility] Address [address] [place] [address] Phone Care Team Providers Care Gemologist Name Role Phone Byron Galindo DO Unavailable Sarthak Andersen DO Unavailable [phone] Richelle Jaeger CNP Unavailable Andressa Villegas MD Unavailable Sarina Avila MD Unavailable Baltazar Gill MD Unavailable Trish Meza STATE EPIDEMIOLOGIST Unavailable [phone] Lj Mendoza DPM Unavailable Unavailable Renetta Rodriguez STATE EPIDEMIOLOGIST Unavailable [phone] Evy Lockett MD Unavailable Byron Galindo DO Primary Care Provider [phone] Андрей Boyd MD Unavailable [phone] Ck Vickers MD Unavailable Bennett Regalado DO Primary Care Provider Jany Denton Primary Care Provider Sissy Jade PA-C Unavailable [phone] Greyson Rodriguez MD Primary Care Provider [phone] Encounter Details Date Type Department Care Team (Late st Contact Info) Description 06/03/2017 Procedure Pass [facility]iology 30 [place] [address] Social History Tobacco Use Types Packs/Day Years [...] Description 04/13/2025 3:00 PM EST Office Visit [facility] 30 [place] [address] Sarthak Andersen DO 30 [place] [address] [email or web address] documented as of this encounter Visit Diagnoses Not on filedocumented in this encounter Care Teams Gemologist Relationship Specialty Start Date End Date Byron Galindo DO [address] [place] [address] [place] [address] PCP - General 03/22/17 03/29/18 Bennett Regalado DO [address] [place] [address] [email or web address] PCP - General Family Medicine 03/30/18 10/20/20 Jany Denton FNP [address] [address] PCP - General 10/21/20 12/22/23 Greyson Rodriguez MD [address] [place] [address] PCP - General Internal Medicine 12/23/23 Byron Galindo DO 29 [place] [address] [email or web address] Historical LMR Provider 03/20/17 Sarthak Andersen DO 30 [place] [address] [email or web address] Primary Oncologist Medical Oncology 03/20/17 Richelle Jaeger, CONSUELO 29 [place] [address] [email or web address] Historical LMR Provider 03/20/17 2 Andressa Villegas MD [address] [place] [address] [email or web address] Historical LMR Provider 03/20/17 06/07/21 Sarina Avila MD 31 [place] [address] [email or web address] Historical LMR Provider 03/20/17 Baltazar Gill MD [address] [address] [email or web address] Historical LMR Provider 03/20/17 06/07/21 Trish Meza, STATE EPIDEMIOLOGIST [address] [place] [address] Historical LMR Provider 03/20/17 2 Lj Mendoza DPM [address] [place] [address] Historical LMR Provider 03/20/1706/07/21 Renetta Rodriguez NP [address] [place] [address] Historical LMR Provider 03/20/17 2 Evy Lockett MD [address] [place] [address] Historical LMR Provider 03/20/17 06/07/21 Андрей Boyd MD [address] [place] [address], [address] [place] [address] Urology 09/27/17 Ck Vickers MD [address] [place] [address], [address] [place] [address] Neurology 09/27/17 Sissy Jade PA-C [address] [place] [address] [email or web address] Physician Sand Miller Hematology 04/18/21 documented as of this encounter Additional Source Comments The information contained in this document represents components of the legal health record. It is not the complete legal health record.[facility]
--- OUTSIDE RECORDS SUMMARY | 2025-03-01 14:27 | XMS_ITS | Encounter Summary ---
Author Organization [facility] Address [address] [place] [address] Phone Care Team Providers Care Apprentice Embalmer Name Role Phone Byron Galindo DO Unavailable Sarthak Andersen DO Unavailable [phone] Richelle Jaeger CNP Unavailable Andressa Villegas MD Unavailable Sarina Avila MD Unavailable Baltazar Gill MD Unavailable Trish Meza TOLL COLLECTOR Unavailable Lj Mendoza DPM Unavailable Unavailable Renetta Rodriguez TOLL COLLECTOR Unavailable [phone] Evy Lockett MD Unavailable Byron Galindo DO Primary Care Provider [phone] Андрей Boyd MD Unavailable [phone] Ck Vickers MD Unavailable [phone] Bennett Regalado DO Primary Care Provider Jany Denton Primary Care Provider Sissy Jade PA-C Unavailable [phone] Greyson Rodriguez MD Primary Care Provider [phone] Encounter Details Date Type Department Care Team (Latest Contact Info) Description 08/06/2017 Transcribe Orders [facility]ORATORY 29 [place] [address] Ck Vickers MD [address] [place] [address], [address] [place] [address] [email or web address] Memory loss (Primary Dx) Social History [...] Description 04/13/2025 3:00 PM EST Office Visit [facility] at [address] [address] Sarthak Andersen DO 30 [place] [address] [email or web address] documented as of this encounter Results * Creatinine/eGFR (08/06/2017 9:20 AM EST) CREATININE 1.00 0.5 - 1.5 mg/dL [facility] EGFR 76 >59 mL/min/1.7 3m2 [facility] Comment:If patient is black, multiply result by 1.159. The eGFR calculation has changed from the MDRD equation to the CKD-EPI equation as of August 03, 2017. Blood 08/06/2017 9:20 AM EST 08/06/2017 9:31 AM EST us Ck Vickers MD LAB BLOOD ORDERABLES Final R esult [address] [address] * BUN (08/06/2017 9:20 AM EST) BUN 10 6 - 19 mg/dL [facility] Blood 08/06/2017 9:20 AM EST 08/06/2017 9:31 AM EST us Ck Vickers MD LAB BLOOD ORDERABLES Final R esult [facility] 30 [place] [address] documented in this encounter Visit Diagnoses Diagnosis Memory loss- Primary documented in this encounter Care Teams Apprentice Embalmer Relationship Specialty Start Date End Date Byron Galindo DO 29 [place] [address] PCP - General 03/22/17 03/29/18 Bennett Regalado DO [address] [place] [address] [email or web address] PCP - General Family Medicine 03/30/18 10/20/20 Jany Denton FNP [address] [place] [address] PCP - General 10/21/20 12/22/23 Greyson Rodriguez MD [address] [place] [address] PCP - General Internal Medicine 12/23/23 Byron Galindo DO [address] [place] [address] Historical LMR Provider 03/20/17 Sarthak Andersen DO [address] [place] [address] [email or web address] Primary Oncologist Medical Oncology 03/20/17 Richelle Jaeger, CONSUELO 29 [place] [address] [email or web address] Historical LMR Provider 03/20/17 2 Andressa Villegas MD [address] [address] [email or web address] Historical LMR Provider 03/20/17 06/07/21 Sarina Avila MD 31 [place] [address] [email or web address] Historical LMR Provider 03/20/17 Baltazar Gill MD [address] [address] [email or web address] Historical LMR Provider 03/20/17 06/07/21 Trish Meza, TORRES [address] [place] [address] Historical LMR Provider 03/20/17 2 Lj Mendoza DPM 22 [place] [address] Historical LMR Provider 03/20/1706/07/21 Renetta Rodriguez, TOLL COLLECTOR [address] [place] [address] Historical LMR Provider 03/20/17 2 Evy Lockett MD [address] [place] [address] Historical LMR Provider 03/20/17 06/07/21 Андрей Boyd MD [address] [place] [address], [address] [place] [address] Urology 09/27/17 Ck Vickers MD [address] [place] [address], [address] [place] [address] Neurology 09/27/17 Sissy Jade PA-C [address] [place] [address] Physician Dining Room Maid Hematology 04/18/21 documented as of this encounter Additional Source Comments The information contained in this document represents components of the legal health record. It is not the complete legal health record.[facility]
--- OUTSIDE RECORDS SUMMARY | 2025-03-01 14:27 | XMS_ITS | Encounter Summary ---
Author Organization [facility] Address [address] [place] [address] Phone Care Team Providers Care Catalytic Case Operator Name Role Phone Byron Galindo DO Unavailable Sarthak Andersen DO Unavailable [phone] Richelle Jaeger CNP Unavailable Andressa Villegas MD Unavailable Sarina Avila MD Unavailable Baltazar Gill MD Unavailable [phone] Trish Meza MEMBERSHIP DIRECTOR Unavailable Lj Mendoza DPM Unavailable Unavailable Renetta Rodriguez MEMBERSHIP DIRECTOR Unavailable Evy Lockett MD Unavailable Byron Galindo DO Primary Care Provider [phone] Андрей Boyd MD Unavailable [phone] Ck Vickers MD Unavailable Bennett Regalado DO Primary Care Provider Jany Denton Primary Care Provider Sissy Jade PA-C Unavailable [phone] Greyson Rodriguez MD Primary Care Provider [phone] Encounter Details Date Type Department Care Team (Late st Contact Info) Description 04/02/2017 Procedure Pass [facility] Cardiovascular And Interventional Radiology 30 [place] [address] Social History Tobacco Use Types Packs/Day Years [...] Visit [facility] 30 [place] [address] Sarthak Andersen DO 30 [place] [address] [email or web address] documented as of this encounter Visit Diagnoses Not on filedocumented in this encounter Care Teams Catalytic Case Operator Relationship Specialty Start Date End Date Byron Galindo DO [address] [place] [address] [place] [address] PCP - General 03/22/17 03/29/18 Bennett Regalado DO [address] [place] [address] [email or web address] PCP - General Family Medicine 03/30/18 10/20/20 Jany Denton FNP [address] [place] [address] PCP - General 10/21/20 12/22/23 Greyson Rodriguez MD [address] [place] [address] PCP - General Internal Medicine 12/23/23 Byron Galindo DO 29 [place] [address] [email or web address] Historical LMR Provider 03/20/17 Sarthak Andersen DO 30 [place] [address] [email or web address] Primary Oncologist Medical Oncology 03/20/17 Richelle Jaeger, CONSUELO 29 [place] [address] [email or web address] Historical LMR Provider 03/20/17 2 Andressa Villegas MD [address] [address] [email or web address] Historical LMR Provider 03/20/17 06/07/21 Sarina Avila MD 31 [place] [address] [email or web address] Historical LMR Provider 03/20/17 Baltazar Gill MD [address] [address] [email or web address] Historical LMR Provider 03/20/17 06/07/21 Trish Meza, TORRES [address] [place] [place] [address] Historical LMR Provider 03/20/17 2 Lj Mendoza DPM [address] [place] [address] Historical LMR Provider 03/20/1706/07/21 Renetta Rodriguez NP [address] [place] [address] Historical LMR Provider 03/20/17 2 Evy Lockett MD [address] [place] [address] Historical LMR Provider 03/20/17 06/07/21 Андрей Boyd MD [address] [place] [address], [address] [place] [address] Urology 09/27/17 Ck Vickers MD [address] [place] [address], [address] [place] [address] Neurology 09/27/17 Sissy Jade PA-C [address] [place] [address] Physician Storyboard Artist Hematology 04/18/21 documented as of this encounter Additional Source Comments The information contained in this document represents components of the legal health record. It is not the complete legal health record.[facility]
--- OUTSIDE RECORDS SUMMARY | 2025-03-01 14:27 | XMS_ITS | Encounter Summary ---
Author Organization [facility] Address [address] [place] [address] Phone Care Team Providers Care Child Welfare Caseworker Name Role Phone Byron Galindo DO Unavailable Sarthak Andersen DO Unavailable [phone] Richelle Jaeger CNP Unavailable Andressa Villegas MD Unavailable Sarina Avila MD Unavailable Baltazar Gill MD Unavailable Trish Meza SMALL BUSINESS SALES REPRESENTATIVE Unavailable Lj Mendoza DPM Unavailable Unavailable Renetta Rodriguez SMALL BUSINESS SALES REPRESENTATIVE Unavailable Evy Lockett MD Unavailable [phone] Byron Galindo DO Primary Care Provider [phone] Андрей Boyd MD Unavailable [phone] Ck Vickers MD Unavailable Bennett Regalado DO Primary Care Provider Jany Denton Primary Care Provider Sissy Jade PA-C Unavailable [phone] Greyson Rodriguez MD Primary Care Provider [phone] Encounter Details Date Type Department Care Team (Late st Contact Info) Description 07/29/2017 Procedure Pass [facility], [facility] - [address] [place] [address] Social History Tobacco Use Types Packs/Day Years [...] Description 04/13/2025 3:00 PM EST Office Visit [facility] [place] [facility] at [address] [address] Sarthak Andersen DO [address] [place] [address] [email or web address] documented as of this encounter Visit Diagnoses Not on filedocumented in this encounter Care Teams Child Welfare Caseworker Relationship Specialty Start Date End Date Byron Galindo DO [address] [place] [address] [place] [address] PCP - General 03/22/17 03/29/18 Bennett Regalado DO [address] [place] [address] [email or web address] PCP - General Family Medicine 03/30/18 10/20/20 Jany Denton FNP [address] [place] [address] PCP - General 10/21/20 12/22/23 Greyson Rodriguez MD 30 [place] [address] PCP - General Internal Medicine 12/23/23 Byron Galindo DO 29 [place] [address] Historical LMR Provider 03/20/17 Sarthak Andersen DO 30 [place] [address] [email or web address] Primary Oncologist Medical Oncology 03/20/17 Richelle Jaeger, CONSUELO 29 [place] [address] [email or web address] Historical LMR Provider 03/20/17 2 Andressa Villegas MD [address] [address] [email or web address] Historical LMR Provider 03/20/17 06/07/21 Sarina Avila MD [address] [place] [address] [email or web address] Historical LMR Provider 03/20/17 Baltazar Gill MD [address] [address] Historical LMR Provider 03/20/17 06/07/21 Trish Meza NP [address] [place] [address] Historical LMR Provider 03/20/17 2 Lj Mendoza DPM [address] [place] [address] Historical LMR Provider 03/20/1706/07/21 Renetta Rodriguez NP [address] [place] [address] Historical LMR Provider 03/20/17 2 Evy Lockett MD [address] [place] [address] Historical LMR Provider 03/20/17 06/07/21 Андрей Boyd MD [address] [place] [address], [address] [place] [address] Urology 09/27/17 Ck Vickers MD [address] [place] [address], [address] [place] [address] Neurology 09/27/17 Sissy Jade PA-C [address] [place] [address] [email or web address] Physician Party Director Hematology 04/18/21 documented as of this encounter Additional Source Comments The information contained in this document represents components of the legal health record. It is not the complete legal health record.[facility]
--- OUTSIDE RECORDS SUMMARY | 2025-03-01 14:27 | XMS_ITS | Encounter Summary ---
Author Organization [facility] Address [address] [place] [address] Phone Care Team Providers Care Law Reporter Name Role Phone Byron Galindo DO Unavailable Sarthak Andersen DO Unavailable [phone] Richelle Jaeger CNP Unavailable Andressa Villegas MD Unavailable [phone] Sarina Avila MD Unavailable Baltazar Gill MD Unavailable [phone] Trish Meza CREDIT RATING INSPECTOR Unavailable Lj Mendoza DPM Unavailable Unavailable Renetta Rodriguez CREDIT RATING INSPECTOR Unavailable Evy Lockett MD Unavailable Byron Galindo DO Primary Care Provider [phone] Андрей Boyd MD Unavailable [phone] Ck Vickers MD Unavailable Bennett Regalado DO Primary Care Provider Jany Denton Primary Care Provider Sissy Jade PA-C Unavailable [phone] Greyson Rodriguez MD Primary Care Provider [phone] Encounter Details Date Type Department Care Team (Latest Contact Info) Description 07/30/2017 Transcribe Orders [facility] [address] [place] [address] Ck Vickers MD [address] [place] [address], [address] [place] [address] [email or web address] Neuropathy (Primary Dx) Social History [...] Description 04/13/2025 3:00 PM EST Office Visit [facility] Center at [address] [address] Sarthak Andersen DO [address] [place] [address] [email or web address] documented as of this encounter Results * (ABNORMAL) Monoclonal protein study, serum (07/30/2017 10:06 AM EST) TOTAL PROTEIN 7.0 6.3 - 7.9 g/dL [facility] DPT OF LAB MED AND PAT+ ALBUMIN 3.4 3.4 - 4.7 g/dL [facility] DPT OF LAB MED AND PAT+ ALPHA-1 GLOBULIN 0.3 0.1 - 0.3 g/dL [facility] DPT OF LAB MED AND PAT+ ALPHA-2 GLOBULIN 1.1(H) 0.6 - 1.0 g/dL [facility] DPT OF LAB MED AND PAT+ BETA-GLOBULIN 1.6(H) 0.7 - 1.2 g/dL [facility] DPT OF LAB MED AND PAT+ GAMMA-GLOBULIN 0.7 0.6 - 1.6 g/dL [facility] DPT OF LAB MED AND PAT+ A/G RATIO 0.94 [facility] DPT OF LAB MED AND PAT+ M SPIKE Test component not applicable or not reported. not reported [facility] DPT OF LAB MED AND PAT+ M SPIKE Test component not applicable or not reported. not reported [facility] DPT OF LAB MED AND PAT+ IMPRESSION SEE NOTE [facility] DPT OF LAB MED AND PAT+ Comment: (NOTE) No apparent monoclonal protein on serum electrophoresis. See Immunofixation. 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 Suggest repeat testing in 6-12 months if clinically indicated. Suggest quantitative immunoglobulin level to assist in following monoclonal protein. Blood 07/30/2017 10:0 6 AM EST 07/30/2017 10:49 AM EST Ck Vickers MD LAB BLOOD ORDERABLES Final R esult [facility] DPT OF LAB MED AND PAT+ [address] [place] [address] * Antinuclear antibody (ANNEL) (07/30/2017 10:06 AM EST) ANNEL SCREEN ON HEP 2 Negative Negative [facility] Blood 07/30/2017 10:0 6 AM EST 07/30/2017 10:49 AM EST us Ck Vickers MD LAB BLOOD ORDERABLES Final R esult Performing Organization Address City/[facility]/ZIP Co de Phone Number [facility] [address] [place] [address] documented in this encounter Visit Diagnoses Diagnosis Neuropathy- Primary Mononeuritis of unspecified site documented in this encounter Care Teams Law Reporter Relationship Specialty Start Date End Date Byron Galindo DO 29 [facility] [place] [address] PCP - General 03/22/17 03/29/18 Bennett Regalado DO [address] [place] [address] [email or web address] PCP - General Family Medicine 03/30/18 10/20/20 Jany Denton FNP [address] [place] [address] PCP - General 10/21/20 12/22/23 Greyson Rodriguez MD [address] [place] [address] PCP - General Internal Medicine 12/23/23 Byron Galindo DO [address] [place] [address] Historical LMR Provider 03/20/17 Sarthak Andersen DO [address] [place] [address] [email or web address] Primary Oncologist Medical Oncology 03/20/17 Richelle Jaeger, LOCKSMITH HELPER [address] [place] [address] Historical LMR Provider 03/20/17 Andressa Godoy MD [address] [place] [address], 2nd [place] [address] Historical LMR Provider 03/20/17 06/07/21 Sarina Avila MD [address] [place] [address] [email or web address] Historical LMR Provider 03/20/17 Baltazar Gill MD 22 [facility], 2nd [place] [address] Historical LMR Provider 03/20/17 06/07/21 Trish Meza, CREDIT RATING INSPECTOR [address] [place] [address] Historical LMR Provider 03/20/17 2 Lj Mendoza DPM [address] [place] [address] Historical LMR Provider 03/20/1706/07/21 Renetta Rodriguez, CREDIT RATING INSPECTOR [address] [place] [address] Historical LMR Provider 03/20/17 2 Evy Lockett MD [address] [place] [address] [email or web address] Historical LMR Provider 03/20/17 06/07/21 Андрей Boyd MD [address] [place] [address], [address] [place] [address] Urology 09/27/17 Ck Vickers MD [address] [place] [address], [address] [place] [address] Neurology 09/27/17 Sissy Jade PA-C [address] [place] [address] Physician Billing Representative Hematology 04/18/21 documented as of this encounter Additional Source Comments The information contained in this document represents components of the legal health record. It is not the complete legal health record.[facility]
--- OUTSIDE RECORDS SUMMARY | 2025-03-01 14:27 | XMS_ITS | Encounter Summary ---
Author Organization [employer] Address [address] [place] [address] 7 [place] [address] Care Team Providers Care Alignment Mechanic Name Role Phone Jany Denton IRRIGATION EQUIPMENT INSTALLER Primary Care Provider [phone] Saman Mclean DMD Unavailable Unavailable Jany Denton IRRIGATION EQUIPMENT INSTALLER Unavailable [phone] Jhony Carmichael [facility] Primary Care Provider Unavaila Blanka Ordonez [facility] Primary Care Provider + [phone] Attila Rene Unassigned Primary Care Provider U Greyson Fermin MD Primary Care Provider + [phone] Encounter Details Date Type Department Care Team (Latest Contact Info) Description 01/05/2020 [facility] Dental, Provider, DDS Social [...] 06/12/2025 12:45 PM EST Office Visit [facility] [address] [place] [phone] [address] [facility] [address] [place] [address] 07/17/2025 10:30 AM EST Office Visit [facility] [address] [place] [address] Yanelis Ariza LLD [address] [place] [address] documented as of this encounter Visit Diagnoses Not on filedocumented in this encounter Care Teams Alignment Mechanic Relationship Specialty Start Date End Date Jany Denton FNP [address] [place], [place] [address] PCP - General Family Medicine 03/27/22 08/28/22 Jhony Carmichael FNP [address] [place], [place] [address] PCP - General Family Medicine 12/31/22 03/08/23 Blanka Grullon FNP [address] [place] [address] PCP - General Family Medicine 03/09/23 04/08/23 Attila Rene Unassigned PCP - General Family Medicine 04/09/23 05/03/23 Greyson Rodriguez MD [address] [place] [address] PCP - General Internal Medicine 05/04/23 Saman Mclean DMD [address] [place] [address] Dentist Dental Senior Planning Manager 03/27/22 Jany Denton FNP [address] [place] [address] Family Medicine 03/27/22 10/21/22 documented as of this encounter
--- OUTSIDE RECORDS SUMMARY | 2025-03-01 14:27 | XMS_ITS | Encounter Summary ---
Author Organization [employer] Address [address] [facility] 7t [place] [address] Care Team Providers Care Aluminum Sheet Cutter Name Role Phone CaridadKarylang DMD Unavailable Unavailable Greyson Rodriguez MD Primary Care Provider + [phone] Encounter Details Date Type Department Care Team (Late st Contact Info) Description 12/29/2023 Orders Only [facility] [address] [place] [address] Provider, Not In System Social [...] Description 06/12/2025 12:45 PM EST Office Visit [facility] [address] [place] [phone] Alistair Miramontes [address] [address] 07/17/2025 10:30 AM EST Office Visit [facility] [address] [place] [phone] Yanelis Ariza LLD [address] [place] [address] documented as of this encounter Procedures Procedure Name Priority Date/Time Associated Diagnosis Comments PSA, DIAGNOSTIC Routine 12/20/2023 12:08 PM EDT documented in this encounter Results * PSA, Diagnostic (12/20/2023 12:08 PM EDT) Blood us Not In System Provider LAB BLOOD ORDERABLES Edit ed Result - Final documented in this encounter Visit Diagnoses Not on filedocumented in this encounter Care Teams Aluminum Sheet Cutter Relationship Specialty Start Date End Date Greyson Rodriguez MD [address] [place] [address] PCP - General Internal Medicine 05/04/23 Saman Mclean DMD Dentist Dental Crystal Flat Grinder 03/27/22 documented as of this encounter
--- OUTSIDE RECORDS SUMMARY | 2025-03-01 14:27 | XMS_ITS | Encounter Summary ---
Author Organization [facility] Address [address] [place] [address] Phone Care Team Providers Care Fire Fighting Equipment Specialist Name Role Phone Byron Galindo DO Unavailable Sarthak Andersen DO Unavailable [phone] Richelle Jaeger CNP Unavailable Andressa Villegas MD Unavailable Sarina Avila MD Unavailable Baltazar Gill MD Unavailable Trish Meza STOCK PATCH SAWYER Unavailable Lj Mendoza DPM Unavailable Unavailable Renetta Rodriguez STOCK PATCH SAWYER Unavailable [phone] Evy Lockett MD Unavailable Андрей Boyd MD Unavailable [phone] Ck Vickers MD Unavailable Bennett Regalado DO Primary Care Provider Jany Denton Primary Care Provider [phone] Sissy Jade PA-C Unavailable [phone] Greyson Rodriguez MD Primary Care Provider [phone] Encounter Details Date Type Department Care Team (Late st Contact Info) Description 10/08/2020 Ancillary Orders [facility],Outside Imaging [address] [place] [address] System, Provider Not In, [place] [address] Social History Tobacco Use Types Packs/Day Years [...] 04/13/2025 3:00 PM EST Office Visit [facility] at [address] [address] Sarthak Andersen DO [address] [place] [address] [email or web address] documented as of this encounter [...] on filedocumented in this encounter Care Teams Fire Fighting Equipment Specialist Relationship Specialty Start Date End Date Bennett Regalado DO [address] [place] [address] [address] [place] [address] [email or web address] PCP - General Family Medicine 03/30/18 10/20/20 Jany Denton FNP [address] [place] [address] PCP - General 10/21/20 12/22/23 Greyson Rodriguez MD 30 [place] [address] [email or web address] PCP - General Internal Medicine 12/23/23 Byron Galindo DO 29 [place] [address] [email or web address] Historical LMR Provider 03/20/17 Sarthak Andersen DO 30 [place] [address] [email or web address] Primary Oncologist Medical Oncology 03/20/17 Richelle Jaeger, CONSUELO [address] [place] [address] [email or web address] Historical LMR Provider 03/20/17 2 Andressa Villegas MD [address] [address] [email or web address] Historical LMR Provider 03/20/17 06/07/21 Sarina Avila MD [address] [place] [address] [email or web address] Historical LMR Provider 03/20/17 Baltazar Gill MD [address] [address] Historical LMR Provider 03/20/17 06/07/21 Trish Meza NP [address] [place] [address] Historical LMR Provider 03/20/17 2 Lj Mendoza DPM [address] [place] [address] Historical LMR Provider 03/20/1706/07/21 Renetta Rodriguez, TORRES [address] [place] [address] Historical LMR Provider 03/20/17 2 Evy Lockett MD [address] [place] [email or web address] Historical LMR Provider 03/20/17 06/07/21 Андрей Boyd MD [address] [place] [address], [address] [place] [address] Urology 09/27/17 Ck Vickers MD [address] [place] [address], [address] [place] [address] Neurology 09/27/17 Sissy Jade PA-C [address] [place] [address] Physician Painter Ordnance Hematology 04/18/21 documented as of this encounter Additional Source Comments The information contained in this document represents components of the legal health record. It is not the complete legal health record.[facility]"
--- OUTSIDE RECORDS SUMMARY | 2025-03-01 14:27 | XMS_ITS | Encounter Summary ---
Author Organization [facility] Address [address] [place] [address] Phone Care Team Providers Care Control Officer Name Role Phone Byron Galindo DO Unavailable Sarthak Andersen DO Unavailable [phone] Richelle Jaeger CNP Unavailable Andressa Villegas MD Unavailable Sarina Avila MD Unavailable [phone] Baltazar Gill MD Unavailable Trish Meza ELECTRICAL SYSTEMS ENGINEER Unavailable Lj Mendoza DPM Unavailable Unavailable Renetta Rodriguez ELECTRICAL SYSTEMS ENGINEER Unavailable Evy Lockett MD Unavailable [phone] Byron Galindo DO Primary Care Provider [phone] Андрей Boyd MD Unavailable [phone] Ck Vickers MD Unavailable [phone] Bennett Regalado DO Primary Care Provider Jany Denton Primary Care Provider Sissy Jade PA-C Unavailable [phone] Greyson Rodriguez MD Primary Care Provider [phone] Encounter Details Date Type Department Care Team (Late st Contact Info) Description 07/02/2017 Transcribe Orders [facility] 29 [place] [address] Byron Galindo DO 29 [place] [address] [email or web address] Social History Tobacco [...] Description 04/13/2025 3:00 PM EST Office Visit [facility] at [address] [address] Sarthak Andersen DO [address] [place] [address] [email or web address] documented as of this encounter Visit Diagnoses Not on filedocumented in this encounter Care Teams Control Officer Relationship Specialty Start Date End Date Byron Galindo DO [address] [place] [address] [email or web address] PCP - General 03/22/17 03/29/18 Bennett Regalado DO [address] [place] [address] [email or web address] PCP - General Family Medicine 03/30/18 10/20/20 Jany Denton FNP [address] [place] [address] PCP - General 10/21/20 12/22/23 Greyson Rodriguez MD [address] [place] [address] [email or web address] PCP - General Internal Medicine 12/23/23 Byron Galindo DO 29 [place] [address] [email or web address] Historical LMR Provider 03/20/17 Sarthak Andersen DO [address] [place] [address] [email or web address] Primary Oncologist Medical Oncology 03/20/17 Richelle Jaeger CNP [address] [place] [address] [email or web address] Historical LMR Provider 03/20/17 2 Andressa Villegsa MD [address] [address] [email or web address] Historical LMR Provider 03/20/17 06/07/21 Sarina Avila MD [address] [place] [address] [email or web address] Historical LMR Provider 03/20/17 Baltazar Gill MD [address] [address] [email or web address] Historical LMR Provider 03/20/17 06/07/21 Trish Meza, ELECTRICAL SYSTEMS ENGINEER [address] [place] [address] Historical LMR Provider 03/20/17 2 Lj Mendoza DPM [address] [place] [address] Historical LMR Provider 03/20/1706/07/21 Renetta Rodriguez, ELECTRICAL SYSTEMS ENGINEER [address] [place] [address] Historical LMR Provider 03/20/17 2 Evy Lockett MD [address] [place] [address] Historical LMR Provider 03/20/17 06/07/21 Андрей Boyd MD [address] [place] [address], [address] [place] [address] Urology 09/27/17 Ck Vickers MD [address] [place] [address], [address] [place] [address] Neurology 09/27/17 Sissy Jade PA-C [address] [place] [address] Physician Department Assistant Hematology 04/18/21 documented as of this encounter Additional Source Comments The information contained in this document represents components of the legal health record. It is not the complete legal health record.[facility]
--- OUTSIDE RECORDS SUMMARY | 2025-03-01 14:27 | XMS_ITS | Encounter Summary ---
Author Organization [employer] Address [address] [facility] 7t [place] [address] Care Team Providers Care Front Desk Name Role Phone CaridadKarylang DMD Unavailable Unavailable Greyson Rodriguez MD Primary Care Provider + [phone] Encounter Details Date Type Department Care Team (Late st Contact Info) Description 02/04/2024 Orders Only [facility] [address] [place] [address] Provider, Not In System Social [...] Description 06/12/2025 12:45 PM EST Office Visit [facility] [address] [place] [phone] Alistair Miramontes, [address] [address] 07/17/2025 10:30 AM EST Office Visit [facility] [address] [place] [phone] Yanelis Ariza LLD [address] [place] [address] documented as of this encounter Procedures Procedure Name Priority Date/Time Associated Diagnosis Comments TRANSTHORACIC ECHO (TTE) COMPLETE Routine 01/26/2024 8:58 AM EDT documented in this encounter Results * Transthoracic echo (TTE) complete (01/26/2024 8:58 AM EDT) us Not In System Provider CV ECHO PROCEDURES Edited Result - Final documented in this encounter Visit Diagnoses Not on filedocumented in this encounter Care Teams Front Desk Relationship Specialty Start Date End Date Greyson Rodriguez MD [address] [place] [address] PCP - General Internal Medicine 05/04/23 Saman Mclean DMD Dentist Dental Help Desk Engineer 03/27/22 documented as of this encounter
--- OUTSIDE RECORDS SUMMARY | 2025-03-01 14:27 | XMS_ITS | Encounter Summary ---
Author Organization [employer] Address [address] [place] [address] 7 [place] [address] Care Team Providers Care Area Director Name Role Phone LaynixonSmaan mccormack DMD Unavailable Unavailable Greyson Rodriguez MD Primary Care Provider + [phone] Reason for Visit * Reason Onset Date Comments Med Refill 11/03/2023 Encounter Details Date Type Department Care Team ([facility] st Contact Info) Description 11/03/2023 Refill [facility] [address] [place] [phone] Blanka Grullon, [facility] [address] [place] [address] Social History Tobacco Use Types Packs/Day Years [...] the past 12 months, has t he [employer], gas, oil or water company threatened to [...] Description 06/12/2025 12:45 PM EST Office Visit [facility] [address] [place] [phone] Alistair Miramontes, [facility] [address] [place] [address] 07/17/2025 10:30 AM EST Office Visit [facility] [address] [place] [phone] Yanelis Ariza LLD [address] [place] [address] documented as of this encounter Visit Diagnoses Not on filedocumented in this encounter Care Teams Area Director Relationship Specialty Start Date End Date Greyson Rodriguez MD [address] [place] [address] PCP - General Internal Medicine 05/04/23 Saman Mclean DMD Dentist Dental Spraying Machine Operator 03/27/22 documented as of this encounter
--- OUTSIDE RECORDS SUMMARY | 2025-03-01 14:27 | XMS_ITS | Encounter Summary ---
Author Organization [email or web address] Address [address] [place] [address] [place] [address] Care Team Providers Care Gas Jockey Name Role Phone Saman Mclean DMD Unavailable Unavailable Greyson Rodriguez MD Primary Care Provider [phone] Reason for Referral * Consultation (Routine) - Canceled Specialty Diagnoses / Procedures Referred By Contac t Referred To Contact Cardiology Diagnoses Atherosclerosis of coronary artery of [place] heart, unspecified vessel or lesion type, unspecified whether angina present Greyson Rodriguez MD [address] [place] [address] Phone: tel: fax: Referral ID Status Reason Start Date Expiration Date Visits Requested Visits Authorized [id number] Canceled Specialty Services Required 08/13/2023 08/12/2024 1 1 Encounter Details Date Type Department Care Team (Late st Contact Info) Description 08/13/2023 Orders Only [facility] [address] [place] [phone] Greyson Rodriguez MD [address] [place] [address] Atherosclerosis of coronary artery of [place]scot heart, unspecified vessel or lesion type, unspecified [...] the past 12 months, has t he [employer], gas, oil or water [employer] threatened to shut off services in your [...] Description 06/12/2025 12:45 PM EST Office Visit [facility] [address] [place] [phone] Alistair Miramontes, [address] [address] 07/17/2025 10:30 AM EST Office Visit [facility] [address] [place] [phone] Yanelis Ariza, COLLETTED [address] [place] [address] Scheduled Referrals Name Type Priority Associated Diagnoses Orde r Schedule Referral to Cardiology Outpatient Referral Routine Atherosclerosis of coronary artery of [place] heart, unspecified vessel or lesion type, unspecified whether angina present Expected: 08/13/2023 (Approximate), Expires: 08/12/2024 documented as of this encounter Visit Diagnoses Diagnosis Atherosclerosis of coronary artery of [place] heart, unspecified vessel or lesion type, unspecified whether angina present- Primary documented in this encounter Care Teams Gas Jockey Relationship Specialty Start Date End Date Greyson Rodriguez MD [address] [place] [address] PCP - General Internal Medicine 05/04/23 Saman Mclean DMD Dentist Dental Mortgage Or Loan Underwriter 03/27/22 documented as of this encounter
--- OUTSIDE RECORDS SUMMARY | 2025-03-01 14:27 | XMS_ITS | Encounter Summary ---
Author Organization [facility] Address [address] [place] [address] Phone Care Team Providers Care Service Aide Name Role Phone Byron Galindo DO Unavailable Sarthak Andersen DO Unavailable [phone] Richelle Jaeger CNP Unavailable [phone] Andressa Villegas MD Unavailable [phone] Sarina Avila MD Unavailable [phone] Baltazar Gill MD Unavailable Trish Meza NERVE SPECIALIST Unavailable Lj Mendoza DPM Unavailable Unavailable Renetta Rodriguez NERVE SPECIALIST Unavailable Evy Lockett MD Unavailable Byron Galindo DO Primary Care Provider [phone] Андрей [place] MD Unavailable [phone] Ck Vickers MD Unavailable Bennett Regalado DO Primary Care Provider Jany Denton Primary Care Provider Sissy Jade PA-C Unavailable [phone] Greyson Rodriguez MD Primary Care Provider [phone] Reason for Referral * MRI/CAT Scan - Closed Specialty Diagnoses / Procedures Referred By Contac t Referred To Contact Radiology Diagnoses Memory loss History of throat cancer Procedures MRI Brain Ck Vickers MD Phone: tel: fax: [email or web address] Referral ID Status Reason Start Date Expiration Date Visits Re quested Visits Authorized [id number] Closed 07/29/2017 09/27/2017 1 1 Encounter Details Date Type Department Care Team (Late Contact Info) Description 07/29/2017 Ancillary Orders Virtual Department [address] [place] [address] Ck Vickers MD [address] [place] [address], [address] [place] [address] [email or web address] Memory loss; History of throat [...] PM EST Office Visit [facility] at [address] [address] Sarthak Andersen DO [address] [place] [address] [email or web address] documented as of this encounter Results * MRI BRAIN WITH AND WITHOUT CONTRAST (08/12/2017 10:39 AM EDT) Anatomical Region Laterality Modality Head Magnetic Resonan ce 08/12/2017 10:4 9 AM EDT Impressions 08/12/2017 11:07 AM EDT No significant intracranial abnormalities. Mastoid reaction on left. Suggestion of sinusitis involving the maxillary sinuses and possibly ethmoid air cells. POS - [id number] Narrative 08/12/2017 11:07 AM EDT HISTORY: Headaches, [...] sinuses and possiblyethmoid air cells. POS - [id number] Ck Vickers MD IMG MR HEAD/NECK Final Resul t documented in this encounter Visit Diagnoses Diagnosis Memory loss History of throat cancer Memory loss History of throat cancer documented in this encounter Care Teams Service Aide Relationship Specialty Start Date End Date Byron Galindo DO [address] [place] [address] PCP - General 03/22/17 03/29/18 Bennett Regalado DO [address] [place] [address] [email or web address] PCP - General Family Medicine 03/30/18 10/20/20 Jany Denton FNP [address] [place] [address] PCP - General 10/21/20 12/22/23 Greyson Rodriguez MD [address] [place] [address] PCP - General Internal Medicine 12/23/23 Byron Galindo DO [address] [place] [address] Historical LMR Provider 03/20/17 Sarthak Andersen DO [address] [place] [address] [email or web address] Primary Oncologist Medical Oncology 03/20/17 Richelle Jaeger, CONSUELO [address] [place] [address] [email or web address] Historical LMR Provider 03/20/17 2 Andressa Villegas MD [address] [address] [email or web address] Historical LMR Provider 03/20/17 06/07/21 Sarina Avila MD [address] [place] [address] [email or web address] Historical LMR Provider 03/20/17 Baltazar Gill MD [address] [address] [email or web address] Historical LMR Provider 03/20/17 06/07/21 Trish Meza, TORRES [address] [place] [address] Historical LMR Provider 03/20/17 2 Lj Mendoza DPM 22 [place] [address] Historical LMR Provider 03/20/1706/07/21 Renetta Rodriguez, TORRES [address] [place] [address] Historical LMR Provider 03/20/17 2 Evy Lockett MD [address] [place] [address] Historical LMR Provider 03/20/17 06/07/21 Андрей [place] MD [address] [place] [address], [address] [place] [address] Urology 09/27/17 Ck Vickers MD [address] [place] [address], [address] [place] [address] Neurology 09/27/17 Sissy Jade PA-C [address] [place] [address] Physician Farmworker Rice Hematology 04/18/21 documented as of this encounter Additional Source Comments The information contained in this document represents components of the legal health record. It is not the complete legal health record.[facility]
--- OUTSIDE RECORDS SUMMARY | 2025-03-01 14:27 | XMS_ITS | Encounter Summary ---
Author Organization [employer] Address [address] [place] [address] 7 [place] [address] Care Team Providers Care Mobile Architect Name Role Phone Jany Denton STARS ANALYTICAL LEAD Primary Care Provider [phone] Saman Mclean DMD Unavailable Unavailable Jany Denton STARS ANALYTICAL LEAD Unavailable [phone] Jhony Carmichael [facility] Primary Care Provider Unavaila Blanka Ordonez [facility] Primary Care Provider + [phone] Attila Rene Unassigned Primary Care Provider U Greyson Fermin MD Primary Care Provider + [phone] Encounter Details Date Type Department Care Team (Latest Contact Info) Description 07/03/2019 Abstract [facility] CONVERSIONS Dental, Provider, DDS Social [...] Description 06/12/2025 12:45 PM EST Office Visit [facility] [address] [place] [phone] [address] [facility] [address] [place] [address] 07/17/2025 10:30 AM EST Office Visit [facility] D[facility] [address] [place] [address] Yanelis Ariza LLD [address] [place] [address] documented as of this encounter Visit Diagnoses Not on filedocumented in this encounter Care Teams Mobile Architect Relationship Specialty Start Date End Date Jany Denton FNP [address] [place], [place] [phone] PCP - General Family Medicine 03/27/22 08/28/22 Jhony Carmichael FNP [address] [place], [place] [address] PCP - General Family Medicine 12/31/22 03/08/23 Blanka Grullon FNP [address] [place] [address] PCP - General Family Medicine 03/09/23 04/08/23 Attila Rene Unassigned PCP - General Family Medicine 04/09/23 05/03/23 Greyson Rodriguez MD [address] [place] [address] PCP - General Internal Medicine 05/04/23 Saman Mclean DMD [address] [place] [address] Dentist Dental Mold Injector 03/27/22 Jany Denton FNP [address] [place] [address] Family Medicine 03/27/22 10/21/22 documented as of this encounter
--- OUTSIDE RECORDS SUMMARY | 2025-03-01 14:27 | XMS_ITS | Clinical Summary ---
Author Organization [facility] Address [address] [place] [address] Phone Care Team Providers Care Automotive Fleet Supervisor Name Role Phone GiannaByron DO Unavailable Sarthak Andersen DO Unavailable Sarina Avila MD Unavailable [phone] Андрей [place] MD Unavailable [phone] Vipul Vickers MD Unavailable Sissy Jade PA-C Unavailable [phone] Greyson Rodriguez MD Primary Care Provider [phone] Allergies No known active allergies Medications multivitamin per tablet as directed Active omega 4-jrf-kwl-fish oil 1,000 mg (120 mg-180 mg) Cap [...] Description 04/13/2025 3:00 PM EST Office Visit [facility] at [address] [address] Nathaly De León Jannette, DO [address] [place] [address] [email or web address] Health Maintenance Due Date Last Done Comments [...] 11:49 AM EST Polycythemia, secondary Atherosclerosis of [place] coronary artery, unspecified whether angina present, unspecified whether [place] or transplanted heart Asthmatic bronchitis without complication, unspecified asthma severity, unspecified whether persistent Pure hypercholesterolemia Monoclonal paraproteinemia from Last 3 Months or Most Recently Relevant to Health Maintenance Results * (ABNORMAL) Lipid panel (04/10/2024 11:49 AM EST) HDL 64 mg/dL [facility] Comment: Interpretation <40 mg/dL: Low HDL cholesterol (major risk factor for CHD) Greater than or equal to 60 mg/dL: High HDL cholesterol ( negative risk factor for CHD) HDL - cholesterol is affected by a number of factors, e.g. smoking, excerise, hormones, sex and age. CHOLESTEROL 150 0 - 240 mg/dL [facility] TRIGLYCERIDES 105 30 - 160 mg/dL [facility] LDL 65 50 - 129 mg/dL [facility] Comment: LDL levels in terms of risk for coronary heart disease: <100 mg/dL: Optimal 100-129 mg/dL: Near or above optimal 130-159 mg/dL: Borderline high 160-189 mg/dL: High >190 mg/dL: Very High CARDIAC RISK RATIO 2.3(L) 3.4 - 5.0 C [facility] Blood 04/10/2024 11:4 9 AM EST 04/10/2024 11:55 AM EST Greyson Rodriguez MD LAB BLOOD ORDERABLES Final Result [facility] [address] [place], [place] [phone] from Last 3 Months or Most Recently Relevant to Health Maintenance Insurance MEDICARE PART A & B [place] BLUE REPLACEMENT [facility] SAFETY NET FULL [facility] MEDICARE PART A & [place] BLUE REPLACEMENT HEALTH SAFETY NET FULL [facility] B [facility] MEDICARE PPO BLUE REPLACEMENT HEALTH SAFETY NET FULL MEDICARE PART A & B Member Subscriber Plan / Payer (Ef fective 2017-Present) Name:Vipul Mooney Member ID:[id number] Relation to Subscriber:Self Name:Vipul Mooney Subscriber ID:[id number] Payer ID:[id number] Group ID:Not on file Type:Medicare Address: [facility] [employer] [facility] [address] [place] [address] [place] [address] [place] BLUE REPLACEMENT [facility] SAFETY NET FULL MEDICARE PART A & [place] BLUE REPLACEMENT HEALTH SAFETY NET [facility]ULL [facility] A & B [facility] MEDICARE PPO BLUE REPLACEMENT Member Subscriber Plan / Payer (Ef fective 2012-Present) Name:Vipul Mooney Relation to Subscriber:Self Name:VIPUL MOONEY Payer ID:[id number] (NAIC) Type:Medicare Address: [facility] [id number] FULL MEDICARE PART A & B [facility] MEDICARE PPO BLUE REPLACEMENT HEALTH SAFETY NET FULL Member Subscriber Plan / Payer (Ef fective 2018-Present) Name:Vipul Mooney Relation to Subscriber:Self Name:VIPUL MOONEY Payer ID:Not on file Group ID:Not on file Type:Medicaid Address: [address] MEDICARE PART A & B [place] BLUE REPLACEMENT HEALTH SAFETY NET [facility]ULL [facility] & [place] BLUE REPLACEMENT HEALTH SAFETY NET FULL [facility] [employer] Care Teams Automotive Fleet Supervisor Relationship Specialty Start Date End Date Greyson Rodriguez MD [address] [place] [address] [email or web address] PCP - General Internal Medicine 12/23/23 Byron Galindo DO [address] [place] [address] [place] [address] [email or web address] Historical LMR Provider 03/20/17 Sarthak Andersen DO [address] [place] [address] [email or web address] Primary Oncologist Medical Oncology 03/20/17 Sarina Avila MD [address] [place] [address] [email or web address] Historical LMR Provider 03/20/17 Анрдей [place] MD [address] [place] [address], [address] [place] [address] [email or web address] Urology 09/27/17 Vipul Vickers MD [address] [place] [address], [address] [place] [address] Neurology 09/27/17 Sissy Jade PA-C [address] [place] [email or web address] Physician Dental Laboratory Assistant Hematology 04/18/21 Additional Source Comments The information contained in this document represents components of the legal health record. It is not the complete legal health record.[facility]
--- OUTSIDE RECORDS SUMMARY | 2025-03-01 14:28 | XMS_ITS | Encounter Summary ---
Author Organization [employer] Address [address] [facility] 7 [place] [address] Care Team Providers Care Assistant Clinical Nurse Manager Name Role Phone Saman Mclean DMD Unavailable Unavailable Jhony Carmichael ALLOPATHIC DOCTOR Primary Care Provider Unavaila Blanka Ordonez ALLOPATHIC DOCTOR Primary Care Provider [phone]- [phone] Attila Rene Unassigned Primary Care Provider U Greyson Fermin MD Primary Care Provider + [phone] Encounter Details Date Type Department Care Team (Late st Contact Info) Description 10/22/2022 Telephone [facility] D[facility] [address] [place] [address] Saman Mclean, DMD Social History [...] Description 06/12/2025 12:45 PM EST Office Visit [facility] D[facility] [address] [place] [phone] Alistair Miramontes, [facility] [address] [place], [place] [phone] 07/17/2025 10:30 AM EST Office Visit [facility] D[facility] [address] [place] [phone] Yanelis Ariza LLD [address] [place] [phone] documented as of this encounter Visit Diagnoses Not on filedocumented in this encounter Care Teams Assistant Clinical Nurse Manager Relationship Specialty Start Date End Date Jhony Carmichael FNP PCP - General Family Medicine 12/31/22 03/08/23 Blanak Grullon FNP [address] [place] [address] PCP - General Family Medicine 03/09/23 04/08/23 Attila Rene Unassjack PCP - General Family Medicine 04/09/23 05/03/23 Greyson Rodriguez MD [address] [place] [address] PCP - General Internal Medicine 05/04/23 Saman Mclean DMD Dentist Dental Infectious Disease Technician 03/27/22 documented as of this encounter
--- OUTSIDE RECORDS SUMMARY | 2025-03-01 14:28 | XMS_ITS | Encounter Summary ---
Author Organization [employer] Address [address] [place] [address] 7 [place] [address] Care Team Providers Care Industrial Seamstress Name Role Phone Jany Denton LARYNGOLOGIST Primary Care Provider [phone] Saman Mclean DMD Unavailable Unavailable Jany Denton [facility] Unavailable [phone] Jhony Carmichael [facility] Primary Care Provider Unavaila Blanka Ordonez [facility] Primary Care Provider + [phone] Attila Rene Unassigned Primary Care Provider U Greyson Fermin MD Primary Care Provider [phone] Encounter Details Date Type Department Care Team (Latest Contact Info) Description 03/07/2021 Abstract [facility] CONVERSIONS Dental, Provider, DDS Social [...] Description 06/12/2025 12:45 PM EST Office Visit [facility] DENT[facility] [address] [place] [phone] Alistair Miramontes, [facility] [address] [place] [address] 07/17/2025 10:30 AM EST Office [facility] DENTAL [address] [place] [address] Yanelis Ariza LLD [address] [place] [address] documented as of this encounter Visit Diagnoses Not on filedocumented in this encounter Care Teams Industrial Seamstress Relationship Specialty Start Date End Date Jany Denton FNP [address] [place] [address] PCP - General Family Medicine 03/27/22 08/28/22 Jhony Carmichael FNP [address] [place] [address] PCP - General Family Medicine 12/31/22 03/08/23 Blanka Grullon FNP [address] [place] [address] PCP - General Family Medicine 03/09/23 04/08/23 Attila Rene Unassigned PCP - General Family Medicine 04/09/23 05/03/23 Greyson Rodriguez MD [address] [place] [address] PCP - General Internal Medicine 05/04/23 Saman Mclean DMD [address] [place] [address] Dentist Dental Dry Kiln Operator Helper 03/27/22 Jany Denton FNP [address] [place] [address] Family Medicine 03/27/22 10/21/22 documented as of this encounter
--- OUTSIDE RECORDS SUMMARY | 2025-03-01 14:28 | XMS_ITS | Encounter Summary ---
Author Organization [employer] Address [address] [place] [address] 7 [place] [address] Care Team Providers Care Outside Parts Sales Name Role Phone Caridad Saman PATTERSON Unavailable Unavailable Jhony Carmichael Primary Care Provider UnavailBlanka Dawn Primary Care Provider [phone] Attila Rene Unassjack Primary Care Provider U Greyson Fermin MD Primary Care Provider [phone] Reason for Visit * Reason Comments Med Refill Encounter Details Date Type Department Care Team (Late st Contact Info) Description 01/26/[address] [phone] Blanka Grullon FNP [address] [place], [place] [phone] Persistent insomnia Social History Tobacco Use Types [...] EST Office Visit [facility] [address] [place] [phone] Alistair Miramontes, [address] [phone] 07/17/2025 10:30 AM EST Office Visit [facility] [address] [place] [phone] Yanelis Ariza LLD [address] [place] [address] [phone] documented as of this encounter Visit Diagnoses Diagnosis Persistent insomnia documented in this encounter Care Teams Outside Parts Sales Relationship Specialty Start Date End Date Jhony Carmichael FNP PCP - General Family Medicine 12/31/22 03/08/23 Blanka Grullon FNP [address] [place] [address] PCP - General Family Medicine 03/09/23 04/08/23 Attila Rene Unassigned PCP - General Family Medicine 04/09/23 05/03/23 Greyson Rodriguez MD [address] [place] [address] PCP - General Internal Medicine 05/04/23 Saman Mclean DMD Dentist Dental Streetsweeper Operator 03/27/22 documented as of this encounter
--- OUTSIDE RECORDS SUMMARY | 2025-03-01 14:28 | XMS_ITS | Encounter Summary ---
Author Organization [employer] Address [address] [place] [address] 7 [place] [address] Care Team Providers Care Bisque Brusher Name Role Phone RubagerardoKarylang PATTERSON Unavailable Unavailable Jhony Carmichael Primary Care Provider UnavailBlanka Dawn Primary Care Provider + [phone] Attila Rene Unassjack Primary Care Provider U Greyson Fermin MD Primary Care Provider + [phone] Encounter Details Date Type Department Care Team (Late st Contact Info) Description 01/26/2023 Abstract [facility] [address] [place] [phone] Jhony Carmichael FNP Social History Tobacco [...] [facility] [address] [place] [phone] Alistair Miramontes [facility] [address] [place] [address] 07/17/2025 10:30 AM EST Office Visit [facility] D[facility] [address] [place] [phone] Yanelis Ariza LLD [address] [place] [address] documented as of this encounter Visit Diagnoses Not on filedocumented in this encounter Care Teams Bisque Brusher Relationship Specialty Start Date End Date Jhony Carmichael FNP PCP - General Family Medicine 12/31/22 03/08/23 Blanka Grullon FNP [address] [place] [address] PCP - General Family Medicine 03/09/23 04/08/23 Attila Rene Unassigned PCP - General Family Medicine 04/09/23 05/03/23 Greyson Rodriguez MD [address] [place] [address] PCP - General Internal Medicine 05/04/23 Saman Mclean DMD Dentist Dental Live Out Nanny 03/27/22 documented as of this encounter
--- OUTSIDE RECORDS SUMMARY | 2025-03-01 14:28 | XMS_ITS | Encounter Summary ---
Author Organization [employer] Address [address] [place] [address] 7 [place] [address] Care Team Providers Care Raymond Mill Operator Name Role Phone Jany Denton TREE SAPPER Primary Care Provider [phone] Saman Mclean DMD Unavailable Unavailable Jany Denton [facility] Unavailable [phone] Jhony Carmichael [facility] Primary Care Provider Unavaila Blanka Ordonez [facility] Primary Care Provider [phone]- [phone] Attila Rene Unassigned Primary Care Provider U Greyson Fermin MD Primary Care Provider + [phone] Reason for Visit * Reason Onset Date Comments Medication Question 07/15/2022 Pt wants to discuss cutting back on medication, buPROPion SR (Wellbutrin SR) 150 MG 12 hr tablet, says my mind is running to fast please give pt a c/b Encounter Details Date Type Department Care Team ([facility] st Contact Info) Description 07/15/[address] [phone] Ambika Logan, AKIKO [address] [place] [address] [phone] Medication Question (Pt wants to discuss cutting [...] 12:45 PM EST Office Visit [facility] [address] [place] [phone] Alistair Miramontes [facility] [address] [place] [address] 07/17/2025 10:30 AM EST Office Visit [facility] [address] [place] [phone] Yanelis Ariza LLD [address] [place] [address] documented as of this encounter Visit Diagnoses Not on filedocumented in this encounter Care Teams Raymond Mill Operator Relationship Specialty Start Date End Date Jany Denton FNP [address] [place] [address] PCP - General Family Medicine 03/27/22 08/28/22 Jhony Carmichael FNP [address] [place] [address] PCP - General Family Medicine 12/31/22 03/08/23 Blanka Grullon FNP [address] [place] [address] PCP - General Family Medicine 03/09/23 04/08/23 Attila Rene Unassigned PCP - General Family Medicine 04/09/23 05/03/23 Greyson Rodriguez MD [address] [place] [address] PCP - General Internal Medicine 05/04/23 Saman Mclean DMD [address] [place] [address] Dentist Dental Auto Parts Manager 03/27/22 Jany Denton FNP [address] [place] [address] Family Medicine 03/27/22 10/21/22 documented as of this encounter
--- OUTSIDE RECORDS SUMMARY | 2025-03-01 14:28 | XMS_ITS | Clinical Summary ---
Author Organization [employer] Address [address] [facility] 7t [place] [address] Care Team Providers Care Basket Turner Name Role Phone LaynixonSaman mccormack DMD Unavailable Unavailable Greyson Rodriguez MD Primary Care Provider [phone] Allergies Active Allergy Reactions Criticality Noted Date Comments Pollen Extract Runny nose 07/29/2022 Medications Multiple Vitamins-Minerals (EQ Complete Multivit Adult 50+) tablet in the morning. 018 Active Acetaminophen 500 MG capsule Take 1,000 mg by mouth every 6 (six) hours if needed. Active Fluticasone-Salme terol 100-50 MCG/ACT aerosol powderIndications :Allergic rhinitis, unspecified seasonality, unspecified trigger,Wheeze Inhale 1 puff 2 times daily. 60 each 3 024 Active albuterol 108 (90 Base) MCG/ACT inhalerIndication s:JAVIER (dyspnea on exertion) Inhale 2 puffs every 6 (six) hours if needed for wheezing. 18 g 11 024 Active aspirin 81 MG oral suspension Take 81 mg by mouth 1 (one) time. Active Umeclidinium [place] (Incruse Ellipta) 62.5 MCG/ACT aerosol powderIndications :Allergic rhinitis, unspecified seasonality, unspecified trigger,Wheeze Inhale 1 puff Once per day. 30 each 3 024 Active fluticasone (Flonase) 50 MCG/ACT nasal sprayIndications: Acute recurrent ethmoidal sinusitis Administer 1-2 sprays into each nostril Once per day. Shake gently. Before first use, prime pump. After use, clean tip and replace cap. 16 g 3 025 2025 Active amoxicillin (Amoxil) 500 MG capsule Take 1 capsule (500 mg) by mouth See administration instructions for 1 dose. Take 4 capsules (2,000 mg) by mouth, 1 (one) hour prior to an invasive oral precedure 4 capsule 11 025 Active atorvastatin (Lipitor) 80 MG tabletIndications :Hyperlipidemia, unspecified hyperlipidemia type Take 1 tablet (80 mg) by mouth Once per day. 30 tablet 11 025 2025 Active Dutasteride-Tamsu losin HCl 0.5-0.4 MG capsule TAKE ONE CAPSULE BY MOUTH EVERY MORNING 90 capsule 3 025 Active amoxicillin (Amoxil) 500 MG capsuleIndication s:Need for antibiotic prophylaxis for dental procedure Take 4 capsules (2,000 mg) by mouth 1 (one) time if needed (Take prior to dental procedure.). 4 capsule 3 025 Active furosemide (Lasix) 20 MG tablet Take 1 tablet (20 mg) by mouth 2 times daily. 90 tablet 3 025 Active traZODone (Desyrel) 100 MG tablet TAKE ONE TABLET BY MOUTH EVERY DAY AT BEDTIME 90 tablet 3 025 Active traZODone (Desyrel) 100 MG tablet Take 1 tablet (100 mg) by mouth at bedtime. 90 tablet 3 024 2024 Discontinued Active Problems Problem Noted Date Diagnosed Date Dental caries 12/16/2023 Hyperkalemia 02/04/2023 Anxiety 10/07/2022 Actinic keratosis 10/07/2022 Overview (10/07/2022): And hx SCC followed annually by derm in [place] Tooth sensitivity to cold 09/02/2022 Nonintractable headache 06/05/2022 Acute recurrent ethmoidal sinusitis 06/05/2022 Attention or concentration deficit 07/22/2020 Tobacco dependence due to cigarettes 06/12/2020 MGUS (monoclonal gammopathy of unknown significa nce) 04/14/2019 Allergic rhinitis 01/10/2018 GERD (gastroesophageal reflux disease) 8 Overview (05/04/2022): Note: non bleeding ulcer found on endoscopy 2010 Cataract 01/06/2018 Overview (05/04/2022): Note: right eye Depression 01/06/2018 Essential hypertriglyceridemia 01/06/2018 Overview (05/04/2022): Note: PVD narrowing; plaque in right iliac artery Genital herpes simplex 01/06/2018 Gingivitis 01/06/2018 Osteoarthritis 01/06/2018 Overview (05/04/2022): Note: low back and left knee Social phobia 01/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 Overview (05/04/2022): Note: social anxiety disorder 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 Overview (05/04/2022): Note: tonsil, July 2016 [...] Encounters Date Type Department Care Team Description 02/23/[address] [address] Greyson Rodriguez MD 01/10/2025 2:45 PM EDT Office Visit [facility] [address] [place] [phone] Saman Mclean, DMD 01/09/2025 Travel 12/08/[address] [address] Greyson Rodriguez MD 12/06/2024 12:45 PM EDT Office Visit [address] [phone] Alistair Miramontes, [facility] 12/06/[address] [address] Greyson Rodriguez MD Need for antibiotic prophylaxis for dental procedure 12/02/[address] [phone] Greyson Rodriguez MD from Last 3 Months [...] is your housing situation today? I have vimalkristofer kaba 11/06/[address] you [...] the past 12 months, has t he [employer], gas, oil or water company threatened to [...] 12:45 PM EST Office Visit [facility] [address] [place] [phone] [address] 07/17/2025 10:30 AM EST Office Visit [facility] [address] [place] [phone] Yanelis Ariza LLD [address] [place] [address] Health Maintenance Due Date Last Done Comments [...] Screening 12/06/2025 12/06/2024 Dental X-Ray: [facility] 01/11/2026 01/11/20 25, 11/18/2023, 07/23/2022, Additional history exists Dental X-Ray: [...] ADULT Routine 12/06/2024 1 2:45 PM EDT LIPID PANEL WITH REFLEX TO DIRECT LDL Routine 11/06/2024 3:09 PM EDT Coronary artery disease involving [place] heart without angina pectoris, unspecified vessel or lesion type CT LOW DOSE SCREENING Routine 07/17/2024 10:24 AM EST HM COLONOSCOPY Routine 11/19/2020 HEPATITIS C ANTIBODY Routine 05/12/2018 from Last 3 Months or Most Recently Relevant to Health Maintenance Results * Lipid Panel with Reflex to Direct LDL (11/06/2024 3:09 PM EDT) Cholesterol, Total 131 <200 mg/dL [facility] HDL Cholesterol 52 > OR = 40 mg/dL [facility] Triglycerides 122 <150 mg/dL [facility] LDL Cholesterol 59 mg/dL Ques t [employer] [place] [employer] Comment: Reference range: <100 Desirable range <100 mg/dL for primary prevention; <70 mg/dL for patients with CHD or diabetic patients with > or = 2 CHD risk factors. LDL-C is now calculated using the Guillermo-Eli calculation, which is a validated novel method providing better accuracy than the Friedewald equation in the estimation of LDL-C. Guillermo SS et al. RONAK. 2013;310(12): 7106-5408 (http://education.Sanaexpert/faq/XRM623) Chol/HDLC Ratio 2.5 <5.0 (calc) [facility] [place] [employer] Non-HDL Cholesterol 79 <130 mg/dL [facility] [place] [employer] Comment: For patients with diabetes plus 1 major ASCVD risk factor, treating to a non-HDL-C goal of <100 mg/dL (LDL-C of <70 mg/dL) is considered a therapeutic option. Blood 11/06/2024 3:09 PM EDT 11/06/2024 3:12 PM EDT Narrative [facility] - 11/09/2024 5:49 PM EDT FASTING:UNKNOWN FASTING: UNKNOWN us Greyson Rodriguez MD LAB BLOOD ORDERABLES Final R esult [facility] [address], [place] [address] [facility] [place] [employer] [address] [place] [address] * CT Low Dose Screening (07/17/2024 10:24 AM EST) Anatomical Region Laterality Modality Chest Computed Tomogra phy 07/17/2024 10:2 4 AM EST Narrative 07/17/2024 3:[address] Chest LDCT Lung Program Reason: Other:; LDCT LUNG CANCER SCREENING PROGRAM, CURRENT SMOKER, 74 PACK YEAR HX; Clinical Question(s): Other:; Special Instructions: BOOK AT [address] [place] [address] ., [place], [place] BOOK AFTER 07 15 2024 NO CHEST [...] lymph node (image 52), stable. OTHER FINDINGS: Electronics Engineering Professor view findings, lines and tubes: None. Trachea [...] None. Categorization based on Lung-RADS 2022 criteria. [email or web address] WSN: [id number] Ordering Physician: Greyson Rodriguez MD Dictated By: [...] Clinical Question(s): Other:; Special Instructions: BOOK AT [facility] ., [place], [place] BOOK AFTER 07 15 2024 NO CHEST [...] lymph node (image 52), stable. OTHER FINDINGS: Electronics Engineering Professor view findings, lines and tubes: None. Trachea [...] None. Categorization based on Lung-RADS 2022 criteria. [email or web address] WSN: [id number] Ordering Physician: Greyson Rodriguez MD Dictated By: Maria M Dye MD Dictated Date/Time: 07/17/24 3:42 pm Reviewed By: Maria M Dye MD Signed By: Maria M Dye MD Signed Date/Time: 07/17/24 3:42 pm Transcribed By: DERRICK Transcribed Date/Time: 07/17/24 3:41 pm Greyson Rodriguez MD IMG CT PROCEDURES Final Resu lt * Hm Colonoscopy (11/19/2020) Colonoscopy REPEAT IN 5 YEARS. Historical Provider HEALTH MAINTENANCE Final Result * HM Hepatitis C Antibody (05/12/2018) Hepatitis C Antibody Nonreactive Blood Historical Provider HEALTH MAINTENANCE Final Result from Last 3 Months or Most Recently Relevant to Health Maintenance Insurance [facility]PLACEMENT PPO N FULL DENTAL - BCBS MEDICARE ADVANTAGE DENTAL - HSN FULL (MEDICAID) Care Teams Basket Turner Relationship Specialty Start Date End Date Greyson Rodriguez MD [address] [place] [address] PCP - General Internal Medicine 05/04/23 Saman Mclean DMD Dentist Dental Hospice Home Care Coordinator 03/27/22
--- OUTSIDE RECORDS SUMMARY | 2025-03-01 14:28 | XMS_ITS | Encounter Summary ---
Author Organization [facility] Address [address] [place] [address] [place] [address] Phone Care Team Providers Care Human Resources Manager Name Role Phone Gianna Byron J DO Unavailable Sarthak Andersen DO Unavailable [phone] Sarina Avila MD Unavailable [phone] Андрей Boyd MD Unavailable [phone] Ck Vickers MD Unavailable [phone] Sissy Jade PA-C Unavailable [phone] Greyson Rodriguez MD Primary Care Provider [phone] Reason for Referral * MRI/CAT Scan - Closed Specialty Diagnoses / Procedures Referred By Contac t Referred To Contact Radiology Diagnoses JAVIER (dyspnea on exertion) Procedures NC Myocardial Perfusion Exercise Multiple Gael Coombs MD Phone: tel: fax: mailto:[email or web address] Referral ID Status Reason Start Date Expiration Date Visits Re quested Visits Authorized [id number] Closed 01/25/2024 03/24/2024 1 1 Encounter Details Date Type Department Care Team (Latest Contact Info) Description 01/25/2024 Transcribe [facility] [address] [place] [address] 3rd Floor, [address] [place], [place] [phone] Gael Coombs MD [address] [place] [address] [email or web address] JAVIER (dyspnea on exertion) (Primary Dx) Social [...] [facility] at [address] [address] Sarthak Andersen DO [address] [place] [address] [email or web address] documented as of this encounter Results * NC Myocardial Perfusion Exercise Multiple (02/09/2024 1:31 PM EDT) Pathologist [facility] Max Predicted Heart Rate 144 bpm Stress/rest [...] in SPECT format, reconstructed tomographically and compared puup-[id number] in short axis, horizontal long axis and [...] abnormality documented in this encounter Care Teams Human Resources Manager Relationship Specialty Start Date End Date Greyson Rodriguez MD [address] [place] [address] [email or web address] PCP - General Internal Medicine 12/23/23 Byron Galindo DO [address] [place] [address] [place] [address] [email or web address] Historical LMR Provider 03/20/17 Sarthak Andersen DO [address] [place] [address] [email or web address] Primary Oncologist Medical Oncology 03/20/17 Sarina Avila MD [address] [place] [address] [email or web address] Historical LMR Provider 03/20/17 Андрей Boyd MD [address] [place] [address], [address] [place] [address] [email or web address] Urology 09/27/17 Ck Vickers MD [address] [place] [address], [address] [place] [address] [email or web address] Neurology 09/27/17 Sissy Jade PA-C [address] [place] [address] [email or web address] Physician Bus Assistant Hematology 04/18/21 documented as of this encounter Additional Source Comments The information contained in this document represents components of the legal health record. It is not the complete legal health record.[facility]
--- OUTSIDE RECORDS SUMMARY | 2025-03-01 14:28 | XMS_ITS | Encounter Summary ---
Author Organization [employer] Address [address] [place] [address] 7 [place] [address] Care Team Providers Care Data Management Analyst Name Role Phone Jany Denton CUSTOMER RETENTION REPRESENTATIVE Primary Care Provider [phone] Saman Mclean DMD Unavailable Unavailable Jany Denton [facility] Unavailable [phone] Jhony Carmichael [facility] Primary Care Provider Unavaila Blanka Ordonez [facility] Primary Care Provider + [phone] Attila Rene Unassigned Primary Care Provider U Greyson Fermin MD Primary Care Provider [phone] Encounter Details Date Type Department Care Team (Latest Contact Info) Description 01/12/2022 Abstract [facility] CONVERSIONS Dental, Provider, DDS Social History [...] Description 06/12/2025 12:45 PM EST Office Visit [facility] [address] [place] [phone] Alistair Miramontes, [facility] [address] [place] [address] 07/17/2025 10:30 AM EST Office Visit [facility] [address] [place] [address] Yanelis Ariza LLD [address] [place] [address] documented as of this encounter Visit Diagnoses Not on filedocumented in this encounter Care Teams Data Management Analyst Relationship Specialty Start Date End Date Jany Denton FNP [address] [place] [address] PCP - General Family Medicine 03/27/22 08/28/22 Jhony Carmichael FNP [address] [place] [address] PCP - General Family Medicine 12/31/22 03/08/23 Blanka Grullon FNP [address] [place] [address] PCP - General Family Medicine 03/09/23 04/08/23 Attila Rene Unassigned PCP - General Family Medicine 04/09/23 05/03/23 Greyson Rodriguez MD [address] [place] [address] PCP - General Internal Medicine 05/04/23 Saman Mclean DMD [address] [place] [address] Dentist Dental Inspection And Testing Supervisor 03/27/22 Jany Denton FNP [address] [place] [address] Family Medicine 03/27/22 10/21/22 documented as of this encounter
--- OUTSIDE RECORDS SUMMARY | 2025-03-01 14:28 | XMS_ITS | Encounter Summary ---
Author Organization [employer] Address [address] [place] [address] 7 [place] [address] Care Team Providers Care Paint Roller Winder Name Role Phone Jany Denton Primary Care Provider [phone] Saman Mclean DMD Unavailable Unavailable Jany Denton [facility] Unavailable [phone] [facility] Primary Care Provider Unavaila Blanka Ordonez [facility] Primary Care Provider + [phone] Attila Rene Unassigned Primary Care Provider U Greyson Fermin MD Primary Care Provider Encounter Details Date Type Department Care Team (Late st Contact Info) Description 04/28/2022 Abstract [facility] MEDICAL [address] [place] [phone] Jany Denton FNP [address] [place] [phone] Social History Tobacco Use Types Packs/Day Years [...] [facility] [address] [place] [phone] [place], [place] [phone] 07/17/2025 10:30 AM EST Office Visit [facility] [address] [place] [phone] Yanelis Ariza LLD [address] [place] [address] documented as of this encounter Visit Diagnoses Not on filedocumented in this encounter Care Teams Paint Roller Winder Relationship Specialty Start Date End Date Jany Denton FNP [address] [place] [address] PCP - General Family Medicine 03/27/22 08/28/22 Jhony Carmichael FNP [address] [place] [address] PCP - General Family Medicine 12/31/22 03/08/23 Blanka Grullon FNP [address] [place] [address] PCP - General Family Medicine 03/09/23 04/08/23 Attila Rene Unassigned PCP - General Family Medicine 04/09/23 05/03/23 Greyson Rodriguez MD [address] [place] [address] PCP - General Internal Medicine 05/04/23 Saman Mclean DMD [address] [place], [place] [phone] Dentist Dental Loan Processor 03/27/22 Jany Denton FNP [address] [place] [address] Family Medicine 03/27/22 10/21/22 documented as of this encounter
--- OUTSIDE RECORDS SUMMARY | 2025-03-01 14:28 | XMS_ITS | Encounter Summary ---
Author Organization [facility] Address [address] [place] [address] Phone Care Team Providers Care Mine Patrol Name Role Phone Byron Galindo DO Unavailable Sarthak Andersen DO Unavailable [phone] Richelle Jaeger CNP Unavailable Andressa Villegas MD Unavailable Sarina Avila MD Unavailable Baltazar Gill MD Unavailable Trish Meza CORRECTIVE AND MANUAL ARTS THERAPIST Unavailable Lj Mendoza DPM Unavailable Unavailable Renetta Rodriguez CORRECTIVE AND MANUAL ARTS THERAPIST Unavailable [phone] Evy Lockett MD Unavailable Byron Galindo DO Primary Care Provider [phone] Андрей Boyd MD Unavailable [phone] Ck Vickers MD Unavailable Bennett Regalado DO Primary Care Provider Jany Denton Primary Care Provider Sissy Jade PA-C Unavailable [phone] Greyson Rodriguez MD Primary Care Provider [phone] Encounter Details Date Type Department Care Team (Late st Contact Info) Description 10/06/2017 Transcribe Orders [facility] [address] [place] [address] Ck Vickers MD [address] [place] [address], [address] [place] [address] [email or web address] Social History Tobacco Use Types Packs/Day Years [...] Office Visit [facility] at [address] [address] Sarthak Andersen DO [address] [place] [address] [email or web address] documented as of this encounter Visit Diagnoses Not on filedocumented in this encounter Care Teams Mine Patrol Relationship Specialty Start Date End Date Byron Galindo DO [address] [facility] [place] [address] [email or web address] PCP - General 03/22/17 03/29/18 Bennett Regalado DO [address] [place] [address] [email or web address] PCP - General Family Medicine 03/30/18 10/20/20 Jany Denton FNP [address] [place] [address] PCP - General 10/21/20 12/22/23 Greyson Rodriguez MD [address] [place] [address] [email or web address] PCP - General Internal Medicine 12/23/23 Byron Galindo DO [address] [place] [address] [email or web address] Historical LMR Provider 03/20/17 Sarthak Andersen DO [address] [place] [address] [email or web address] Primary Oncologist Medical Oncology 03/20/17 Richelle Jaeger CNP [address] [place] [address] [email or web address] Historical LMR Provider 03/20/17 2 Andressa Villegas MD [address] [address] [email or web address] Historical LMR Provider 03/20/17 06/07/21 Sarina Avila MD [address] [place] [address] [email or web address] Historical LMR Provider 03/20/17 Baltazar Gill MD [address] [address] [email or web address] Historical LMR Provider 03/20/17 06/07/21 Trish Meza, CORRECTIVE AND MANUAL ARTS THERAPIST [address] [place] [address] Historical LMR Provider 03/20/17 2 Lj Mendoza DPM [address] [place] [address] Historical LMR Provider 03/20/1706/07/21 Renetta Rodriguez, CORRECTIVE AND MANUAL ARTS THERAPIST [address] [place] [address] Historical LMR Provider 03/20/17 2 Evy Lockett MD [address] [place] [address] Historical LMR Provider 03/20/17 06/07/21 Андрей Boyd MD [address] [place] [address], [address] [place] [address] Urology 09/27/17 Ck Vickers MD [address] [place] [address], [address] [place] [address] Neurology 09/27/17 Sissy Jade PA-C [address] [place] [address] Physician Material Reclaimer Hematology 04/18/21 documented as of this encounter Additional Source Comments The information contained in this document represents components of the legal health record. It is not the complete legal health record.[facility]
--- OUTSIDE RECORDS SUMMARY | 2025-03-01 14:28 | XMS_ITS | Encounter Summary ---
Author Organization [employer] Address [address] [place] [address] 7 [place] [address] Care Team Providers Care Bisque Cleaner Name Role Phone Jany Denton Primary Care Provider + [phone] Saman Mclean DMD Unavailable Unavailable Jany Denton [facility] Unavailable [phone] Jhony Carmichael [facility] Primary Care Provider Unavaila Blanka Ordonez [facility] Primary Care Provider [phone] Attila Rene Unassigned Primary Care Provider U Greyson Fermin MD Primary Care Provider + [phone] Reason for Visit * Reason Comments Med Refill Encounter Details Date Type Department Care Team (Late st Contact Info) Description 06/29/2022 Refill [facility] [address] [place] [address] Jany Denton FNP [address] [place], [place] [phone] Social History Tobacco Use Types Packs/Day Years [...] EST Office Visit [facility] [address] [place] [phone] Alistair Miramontes, [address] [address] 07/17/2025 10:30 AM EST Office Visit [facility] [address] [place] [phone] Yanelis Ariza LLD [address] [place] [address] documented as of this encounter Visit Diagnoses Not on filedocumented in this encounter Care Teams Bisque Cleaner Relationship Specialty Start Date End Date Jany Denton FNP [address] [place] [address] PCP - General Family Medicine 03/27/22 08/28/22 Jhony Carmichael FNP [address] [place] [address] PCP - General Family Medicine 12/31/22 03/08/23 Blanka Grullon FNP [address] [place] [address] PCP - General Family Medicine 03/09/23 04/08/23 Attila Rene Unassigned PCP - General Family Medicine 04/09/23 05/03/23 Greyson Rodriguez MD [address] [place] [address] PCP - General Internal Medicine 05/04/23 Saman Mclean DMD [address] [place] [address] Dentist Dental Grain Elevator Worker 03/27/22 Jany Denton FNP [address] [place] [address] Family Medicine 03/27/22 10/21/22 documented as of this encounter
--- OUTSIDE RECORDS SUMMARY | 2025-03-01 14:28 | XMS_ITS | Encounter Summary ---
Author Organization [facility] Address [address] [place] [address] Phone Care Team Providers Care Election Judge Name Role Phone Byron Galindo DO Unavailable Sarthak Andersen DO Unavailable Richelle Jaeger CNP Unavailable Andressa Villegas MD Unavailable Sarina Avila MD Unavailable [phone] Baltazar Gill MD Unavailable Trish Meza SHOWER SCREEN INSTALLER Unavailable Lj Mendoza DPM Unavailable Unavailable Renetta Rodriguez SHOWER SCREEN INSTALLER Unavailable Evy Lockett MD Unavailable [phone] Андрей Boyd MD Unavailable [phone] Ck Vickers MD Unavailable [phone] Bennett Regalado DO Primary Care Provider Jany Denton Primary Care Provider [phone] Sissy Jade PA-C Unavailable [phone] Greyson Rodriguez MD Primary Care Provider [phone] Encounter Details Date Type Department Care Team (Late st Contact Info) Description 04/16/2020 Transcribe Orders [facility] [address] [place] [address] Bennett Regalado DO [address] [address] [email or web address] Social History Tobacco Use Types Packs/Day Years [...] Description 04/13/2025 3:00 PM EST Office Visit [facility] at [address] [address] Sarthak Andersen DO [address] [place] [address] [email or web address] documented as of this encounter Visit Diagnoses Not on filedocumented in this encounter Care Teams Election Judge Relationship Specialty Start Date End Date Bennett Regalado DO [address] [place] [address] [email or web address] PCP - General Family Medicine 03/30/18 10/20/20 Jany Denton FNP [address] [place] [address] PCP - General 10/21/20 12/22/23 Greyson Rodriguez MD [address] [place] [address] [email or web address] PCP - General Internal Medicine 12/23/23 Byron Galindo DO [address] [place] [address] [place] [address] [email or web address] Historical LMR Provider 03/20/17 Sarthak Andersen DO 30 [place] [address] [email or web address] Primary Oncologist Medical Oncology 03/20/17 Richelle Jaeger, CONSUELO 29 [place] [address] [email or web address] Historical LMR Provider 03/20/17 2 Andressa Villegas MD [address] [address] [email or web address] Historical LMR Provider 03/20/17 06/07/21 Sarina Avila MD 31 [place] [address] [email or web address] Historical LMR Provider 03/20/17 Baltazar Gill MD [address] [address] [email or web address] Historical LMR Provider 03/20/17 06/07/21 Trish Meza, TORRES [address] [place] [address] Historical LMR Provider 03/20/17 2 Lj Mendoza DPM 22 [place] [address] Historical LMR Provider 03/20/1706/07/21 Renetta Rodriguez, SHOWER SCREEN INSTALLER [address] [place] [address] Historical LMR Provider 03/20/17 2 Evy Lockett MD 30 [place] [address] Historical LMR Provider 03/20/17 06/07/21 Андрей Boyd MD [address] [place] [address], [address] [place] [address] [email or web address] Urology 09/27/17 Ck Vickers MD [address] [place] [address], [address] [place] [address] Neurology 09/27/17 Sissy Jade PA-C [address] [place] [address] Physician Pit Worker Power Shovel Hematology 04/18/21 documented as of this encounter Additional Source Comments The information contained in this document represents components of the legal health record. It is not the complete legal health record.[facility]
--- OUTSIDE RECORDS SUMMARY | 2025-03-01 14:28 | XMS_ITS | Encounter Summary ---
Author Organization [employer] Address [address] [place] [address] 7 [place] [address] Care Team Providers Care Industrial Refrigeration Mechanic Name Role Phone Jany Denton LAW PROFESSOR Primary Care Provider [phone] Saman Mclean DMD Unavailable Unavailable Jany Denton [facility] Unavailable [phone] Jhony Carmichael [facility] Primary Care Provider Unavaila Blanka Ordonez [facility] Primary Care Provider + [phone] Attila Rene Unassigned Primary Care Provider U Greyson Fermin MD Primary Care Provider [phone] Encounter Details Date Type Department Care Team (Latest Contact Info) Description 01/22/2021 Abstract [facility] CONVERSIONS Dental, Provider, DDS Social History [...] Description 06/12/2025 12:45 PM EST Office Visit [facility] DENTAL [address] [place] [phone] Alistair Miramontes, [facility] [address] [place] [address] 07/17/2025 10:30 AM EST Office Visit [facility] [address] [place] [address] Yanelis Ariza LLD [address] [place] [address] documented as of this encounter Visit Diagnoses Not on filedocumented in this encounter Care Teams Industrial Refrigeration Mechanic Relationship Specialty Start Date End Date Jany Denton FNP [address] [place] [address] PCP - General Family Medicine 03/27/22 08/28/22 Jhony Carmichael FNP [address] [place] [address] PCP - General Family Medicine 12/31/22 03/08/23 Blanka Grullon FNP [address] [place] [address] PCP - General Family Medicine 03/09/23 04/08/23 Attila Rene Unassigned PCP - General Family Medicine 04/09/23 05/03/23 Greyson Rodriguez MD [address] [place] [address] PCP - General Internal Medicine 05/04/23 Saman Mclean DMD [address] [place] [address] Dentist Dental Finger Cobbler 03/27/22 Jany Denton FNP [address] [place] [address] Family Medicine 03/27/22 10/21/22 documented as of this encounter
--- OUTSIDE RECORDS SUMMARY | 2025-03-01 14:28 | XMS_ITS | Encounter Summary ---
Author Organization [employer] Address [address] [place] [address] 7 [place] [address] Care Team Providers Care Beating Machine Operator Name Role Phone Saman Mclean DMD Unavailable Unavailable Greyson Rodriguez MD Primary Care Provider [phone] Reason for Visit * Reason Comments Med Refill Encounter Details Date Type Department Care Team (Late st Contact Info) Description 02/23/[address] [address] Greyson Rodriguez MD [address] [place] [id number] Social History Tobacco Use Types Packs/Day Years [...] encounter Miscellaneous Notes * Telephone Encounter - Greyson Rodriguez MD - 02/26/2025 9:55 AM EDT Approve 3 refills * Telephone Encounter - Christina Rocha MA - 02/26/2025 9:13 AM EDT PCP: Greyson Rodriguez MD Last in-person office visit: 11/06/2024 Greyson Rodriguez MD Lab Results Component Value Date BUN 20 11/06/2024 CREATININE 1.16 11/06/2024 EGFR 65 11/06/2024 HGBA1C 5.4 10/02/2020 K 4.2 11/06/2024 TSH 1.85 07/19/2024 Assessment: [x] Protocol passed [] Lab due [] Appointment due Plan: [x] Please refill for 90 days [] Lab [] BMP [] TSH [] A1C [] Appointment due: Future Appointments Date Time Provider Department Center 06/12/2025 12:45 PM Alistair Miramontes [facility] 07/17/2025 10:30 AM DEMIAN Davis [facility] Comments: documented in this encounter Plan of Treatment Upcoming Encounters Date Type Department Care Team (Late st Contact Info) Description 06/12/2025 12:45 PM EST Office Visit [facility] D[facility] [address] [place] [phone] Alistair Miramontes [address] [address] 07/17/2025 10:30 AM EST Office Visit [address] [address] Yanelis Ariza LLD [address] [place] [address] documented as of this encounter Visit Diagnoses Not on filedocumented in this encounter Additional Health Concerns Assessment Noted Time PHQ-9 Depression Total Score: 0 11/07/19 25 1:32 PM EDT documented as of this encounter Care Teams Beating Machine Operator Relationship Specialty Start Date End Date Greyson Rodriguez MD [address] [place] [address] PCP - General Internal Medicine 05/04/23 Saman Mclean DMD Dentist Dental Research Administrator 03/27/22 documented as of this encounter
--- OUTSIDE RECORDS SUMMARY | 2025-03-01 14:28 | XMS_ITS | Encounter Summary ---
Author Organization [facility] Address [address] [place] [address] Phone Care Team Providers Care Plate Hanger Name Role Phone Byron Galindo DO Unavailable Sarthak Andersen DO Unavailable [phone] Richelle Jaeger CNP Unavailable Andressa Villegas MD Unavailable Sarina Avila MD Unavailable Baltazar Gill MD Unavailable [phone] Trish Meza IRON ASSORTER Unavailable Lj Mendoza DPM Unavailable Unavailable Renetta Rodriguez IRON ASSORTER Unavailable Evy Lockett MD Unavailable [phone] Андрей Boyd MD Unavailable [phone] Ck Vickers MD Unavailable [phone] Bennett Regalado DO Primary Care Provider Jany Denton Primary Care Provider [phone] Sissy Jade PA-C Unavailable [phone] Greyson Rodriguez MD Primary Care Provider [phone] Encounter Details Date Type Department Care Team (Late st Contact Info) Description 10/13/2019 Transcribe Orders [facility] [address] [place] [address] Sarthak Andersen DO [address] [place] [address] [email or web address] Social History Tobacco Use Types Packs/Day Years [...] Description 04/13/2025 3:00 PM EST Office [facility] at [address] [address] Sarthak Andersen DO [address] [place] [address] [email or web address] documented as of this encounter Visit Diagnoses Not on filedocumented in this encounter Care Teams Plate Hanger Relationship Specialty Start Date End Date Bennett Regalado DO [address] [place] [address] [email or web address] PCP - General Family Medicine 03/30/18 10/20/20 Jany Denton FNP [address] [place] [address] PCP - General 10/21/20 12/22/23 Greyson Rodriguez MD [address] [place] [address] [email or web address] PCP - General Internal Medicine 12/23/23 Byron Galindo DO [address] [place] [address] [place] [address] [email or web address] Historical LMR Provider 03/20/17 Sarthak Andersen DO 30 [place] [address] [email or web address] Primary Oncologist Medical Oncology 03/20/17 Richelle Jaeger, CONSUELO 29 [place] [address] [email or web address] Historical LMR Provider 03/20/17 2 Andressa Villegas MD [address] [address] [email or web address] Historical LMR Provider 03/20/17 06/07/21 Sarina Avila MD 31 [place] [address] [email or web address] Historical LMR Provider 03/20/17 Baltazar Gill MD [address] [address] [email or web address] Historical LMR Provider 03/20/17 06/07/21 Trish Meza, TORRES [address] [place] [address] Historical LMR Provider 03/20/17 2 Lj Mendoza DPM 22 [place] [address] Historical LMR Provider 03/20/1706/07/21 Renetta Rodriguez IRON ASSORTER [address] [place] [address] Historical LMR Provider 03/20/17 2 Evy Lockett MD 30 [place] [address] Historical LMR Provider 03/20/17 06/07/21 Андрей Boyd MD [address] [place] [address], [address] [place] [address] Urology 09/27/17 Ck Vickers MD [address] [place] [address], [address] [place] [address] Neurology 09/27/17 Sissy Jade PA-C 30 [place] [address] Physician Director Erp Hematology 04/18/21 documented as of this encounter Additional Source Comments The information contained in this document represents components of the legal health record. It is not the complete legal health record.[facility]
--- OUTSIDE RECORDS SUMMARY | 2025-03-01 14:28 | XMS_ITS | Encounter Summary ---
Author Organization [employer] Address [address] [place] [address] 7 [place] [address] Care Team Providers Care Resistance Welder Name Role Phone LaynixonKary [email or web address] DMD Unavailable Unavailable Greyson Rodriguez MD Primary Care Provider + [phone] Encounter Details Date Type Department Care Team (Late st Contact Info) Description 04/14/2024 Orders Only [facility] [address] [place] [phone] Greyson Rodriguez MD [address] [place], [place] [phone] Unspecified hearing loss, unspecified ear Social History [...] 12:45 PM EST Office Visit [facility] [address] [place] [phone] Alistair Miramontes, [address] [address] 07/17/2025 10:30 AM EST Office Visit [facility] [address] [place] [phone] Yanelis Ariza LLD [address] [place] [address] documented as of this encounter Procedures Procedure Name Priority Date/Time Associated Diagnosis Comments AMB REFERRAL TO AUDIOLOGY Routine 09/21/2023 Unspecified hearing loss, unspecified ear documented in this encounter Results * Referral to Audiology (09/21/2023) Greyson Rodriguez MD OUTPATIENT REFERRAL ORDERABL ES Final Result documented in this encounter Visit Diagnoses Diagnosis Unspecified hearing loss, unspecified ear documented in this encounter Care Teams Resistance Welder Relationship Specialty Start Date End Date Greyson Rodriguez MD [address] [place] [address] PCP - General Internal Medicine 05/04/23 Saman Mclean DMD Dentist Dental Entry Processor 03/27/22 documented as of this encounter
--- OUTSIDE RECORDS SUMMARY | 2025-03-01 14:28 | XMS_ITS | Encounter Summary ---
Author Organization [facility] Address [address] [place] [address] Phone Care Team Providers Care Aquaculture Director Name Role Phone Byron Galindo DO Unavailable Sarthak Andersen DO Unavailable [phone] Richelle Jaeger CNP Unavailable Andressa Villegas MD Unavailable Sarina Avila MD Unavailable [phone] Baltazar Gill MD Unavailable Trish Meza COLLIERY CLERK Unavailable Lj Mendoza DPM Unavailable Unavailable Renetta Rodriguez COLLIERY CLERK Unavailable Evy Lockett MD Unavailable [phone] Byron Galindo DO Primary Care Provider [phone] Андрей Boyd MD Unavailable [phone] Ck Vickers MD Unavailable Bennett Regalado DO Primary Care Provider Jany Denton Primary Care Provider Sissy Jade PA-C Unavailable [phone] Greyson Rodriguez MD Primary Care Provider [phone] Encounter Details Date Type Department Care Team (Latest Contact Info) Description 09/15/2017 Transcribe Orders [facility] 29 [place] [address] Ck Vickers MD [address] [place] [address], [address] [place] [address] [email or web address] Numbness (Primary Dx) Social History Tobacco [...] Description 04/13/2025 3:00 PM EST Office Visit [facility] at [address] [address] Sarthak Andersen DO 30 [place] [address] [email or web address] documented as of this encounter Visit Diagnoses Diagnosis Numbness- Primary Disturbance of skin sensation documented in this encounter Care Teams Aquaculture Director Relationship Specialty Start Date End Date Byron Galindo DO 29 [facility] [place] [address] [email or web address] PCP - General 03/22/17 03/29/18 Bennett Regalado DO [address] [place] [address] [email or web address] PCP - General Family Medicine 03/30/18 10/20/20 Jany Denton FNP [address] [place] [address] PCP - General 10/21/20 12/22/23 Greyson Rodriguez MD 30 [place] [address] [email or web address] PCP - General Internal Medicine 12/23/23 Byron Gailndo DO 29 [place] [address] [email or web address] Historical LMR Provider 03/20/17 Sarthak Andersen DO 30 [place] [address] [email or web address] Primary Oncologist Medical Oncology 03/20/17 Richelle Jaeger, CONSUELO 29 [place] [address] [email or web address] Historical LMR Provider 03/20/17 2 Andressa Villegas MD [address] [place] [address] [email or web address] Historical LMR Provider 03/20/17 06/07/21 Sarina Avila MD [address] [place] [address] [email or web address] Historical LMR Provider 03/20/17 Baltazar Gill MD [address] [address] [email or web address] Historical LMR Provider 03/20/17 06/07/21 Trish Meza, COLLIERY CLERK [address] [place] [address] Historical LMR Provider 03/20/17 2 Lj Mendoza DPM [address] [place] [address] Historical LMR Provider 03/20/1706/07/21 Renetta Rodriguez COLLIERY CLERK [address] [place] [address] Historical LMR Provider 03/20/17 2 Evy Lockett MD [address] [place] [address] Historical LMR Provider 03/20/17 06/07/21 Андрей Boyd MD [address] [place] [address], [address] [place] [address] Urology 09/27/17 Ck Vickers MD [address] [place] [address], [address] [place] [address] Neurology 09/27/17 Sissy Jade PA-C [address] [place] [address] Physician Roller Presser Operator Hematology 04/18/21 documented as of this encounter Additional Source Comments The information contained in this document represents components of the legal health record. It is not the complete legal health record.[facility]
--- OUTSIDE RECORDS SUMMARY | 2025-03-01 14:28 | XMS_ITS | Encounter Summary ---
Author Organization [employer] Address [address] [facility] 7 [place] [address] Care Team Providers Care Older Adult Social Work Specialist Name Role Phone RubakathylynnKarylang DMD Unavailable Unavailable Greyson Ascencio MD Primary Care Provider [phone] Encounter Details Date Type Department Care Team (Late st Contact Info) Description 04/19/2024 Telephone [facility] [address] [place] [address] Greyson Ascencio MD [address] [place], [place] [phone] Social History Tobacco Use Types Packs/Day Years [...] Upcoming Encounters Date Type Department Care Team ([facility] st Contact Info) Description 06/12/2025 12:45 PM EST Office Visit [facility] D[facility] [address] [place] [phone] Kulwinder, Alistair, [address] [address] 07/17/2025 10:30 AM EST Office Visit [facility] [address] [place] [phone] Yanelis Ariza LLD [address] [place] [address] documented as of this encounter Visit Diagnoses Not on filedocumented in this encounter Care Teams Older Adult Social Work Specialist Relationship Specialty Start Date End Date Greyson Ascencio MD [address] [place] [address] PCP - General Internal Medicine 05/04/23 Saman Mclean DMD Dentist Dental Nnps 03/27/22 documented as of this encounter
== END 2025-03-01 14:06 | disposition home or self-care (01) ==
LOC: HO.HOS 13:00
PROVIDERS: Visit Provider Orthopaedic Surgery
DX: M16.11 Unilateral primary osteoarthritis, right hip (principal)
CPT/HCPCS: 99214

== ENCOUNTER → 2025-03-01 12:59 | Outpatient (BNVA) | payer MEDICARE, SELFPAY | PROVIDERS: Visit Provider Orthopaedic Surgery | DX: M16.11 Unilateral primary osteoarthritis, right hip (principal) | CPT/HCPCS: 99212 ==